=== PATIENT | female | born 1950 | race Caucasian/White ===

== ENCOUNTER 2020-10-12 06:17 | Day surgery (SDC) | payer MEDICARE ==
[2020-10-07 14:22] VITALS: BMI 23.2
[2020-10-12] MEDS ORDERED: ALPRAZolam 0.25 MG TAB ONE (06:45)
[2020-10-12] MEDS ORDERED: SODIUM CHLORIDE 0.9% 1,000 ML IV ONE (06:50)
[2020-10-12] MEDS ORDERED: SODIUM CHLORIDE 0.9% 1,000 ML in EMPTY BAG 1 BAG IV ONE (06:51)
[2020-10-12] MEDS ORDERED: ASPIRIN 325 MG TAB PO PRN (06:51)
[2020-10-12] MEDS ORDERED: ALPRAZolam 0.25 MG TAB PO PRN (06:51)
[2020-10-12 07:22] VITALS: RESP 16; TEMP 98.2
[2020-10-12 07:26] LABS: Basophils # (A) 0.1 k/uL (0-0.2); Basophils % (A) 1 %; Eosinophils # (A) 0.4 k/uL (0-0.7); Eosinophils % (A) 4 %; HGB 14.9 gm/dL (11.4-16.0); Lymphocytes # (A) 1.5 k/uL (1.0-4.8); Lymphocytes % (A) 18 %; MCH 31.7 pg (25.0-35.0); MCHC 33.8 g/dL (31.0-37.0); MCV 93.9 fL (80.0-100.0); Mean Platelet Volume 6.9; Monocytes # (A) 0.6 k/uL (0-1.0); Monocytes % (A) 7 %; Neutrophils # (A) 5.3 k/uL (1.3-7.7); Neutrophils % (A) 67 %; Platelet Count 249 k/uL (150-450); RBC 4.68 m/uL (3.80-5.40); RDW 12.5 % (11.5-15.5); WBC 7.9 k/uL (3.8-10.6)
[2020-10-12 07:28] LABS: African American GFR (CKD) >90 (>60 ml/min/1.73 sqM); Anion Gap 8 mmol/L; Blood Urea Nitrogen 17 mg/dL (7-17); Calcium 9.8 mg/dL (8.4-10.2); Carbon Dioxide 26 mmol/L (22-30); Chloride 101 mmol/L (98-107); Glucose 116 mg/dL (74-99); Non-African American GFR(CKD) >90 (>60 ml/min/1.73 sqM); Potassium 4.6 mmol/L (3.5-5.1); Sodium 135 mmol/L (137-145)
[2020-10-12] MEDS ORDERED: LIDOCAINE 1% INJ 10MG/ML (20 ML MDV) SQ ONE (07:58)
[2020-10-12] MEDS ORDERED: MIDAZOLAM 2 MG/2 ML VIAL IVP ONE (07:58)
[2020-10-12] MEDS ORDERED: fentaNYL (PF) 50 MCG/ML 2 ML AMP IVP ONE (08:02)
[2020-10-12] MEDS ORDERED: HEPARIN SODIUM 1,000 UN/ML (10ML VL) IV ONE (08:06)
[2020-10-12] MEDS ORDERED: VERAPAMIL SYRINGE (5 MG/10 ML) INTRAARTER ONE ×2 (08:26→08:32)
[2020-10-12] MEDS ORDERED: SODIUM CHLORIDE 0.9% 1,000 ML IV SCH (08:45)
--- NOTE | 2020-10-12 10:30 | LTR ---
October 12, [address] Veliz, Ms. Michelle Sinclair was brought today to the hospital to undergo an abdominal aortogram and bilateral lower extremities runoff. Unfortunately, she has no access to perform the procedure and that including occluded bilateral femoral arteries and also occluded right subclavian and critical disease involving the left subclavian. I felt that the safest approach is to perform a CTA of the aorta with runoff. I will keep you posted regarding the results of that which is going to be performed in the next few weeks. Meanwhile, I want to thank you for allowing me to participate in her care. MMODL / IJN: [id number] /
--- NOTE | 2020-10-12 10:54 | AN ---
ANGIOGRAPHY REPORT DATE OF PROCEDURE: October 12, 2020 PERFORMING PHYSICIAN: Leandro Krishna MD. PROCEDURE PERFORMED: 1. Ultrasound guided access of the right brachial artery. 2. Ultrasound-guided access of the left radial artery. INDICATION: This is a 70-year-old female patient with history of peripheral arterial disease and bilateral lower extremities intermittent claudication, who was seen today in the office where she underwent an arterial duplex study and that revealed severe femoral-popliteal disease bilaterally. She was brought today to undergo an angiogram. APPROACH: 1. Right radial artery. 2. Left radial artery. COMPLICATION: None. LEVEL OF SEDATION: Moderate with sedation length of 36 minutes. PROCEDURE DESCRIPTION: After obtaining informed consent, the patient was brought to the cardiac manager labor delivery. The patient has no right radial pulse and because of that, we decided to access the right brachial artery. Under ultrasound guidance, the right brachial artery was accessed. I placed a 4-Cymraes sheath in the right brachial artery. At that point, I gave the patient 3000 units of heparin IV. The J-wire will not cross the right subclavian and advancing the Glidewire was also unsuccessful because the patient has right subclavian occlusion. At that point, I decided to access the left radial artery and she has a good left radial pulse. The left radial artery was accessed under ultrasound guidance and I placed a 4-Cymraes sheath there. I did the wire all the way and that was a 035 stiff Glidewire to the left to demonstrate descending aorta. Unfortunately, the 4-Cymraes catheter will not cross the ostial of the left subclavian and because of that I decided to stop because I don't want to do too many manipulation in the aortic arch and left subclavian and induce stroke in this patient who seems to be seems to have severe peripheral arterial disease and occluded bilateral carotid arteries. The patient is going to be discharged home and I will get a CTA done in the next few weeks. CONCLUSION: 1. An aortogram with runoff was aborted because of no access. 2. The patient will benefit from a CTA of the of the aorta with runoff to be performed in a few weeks. MMODL / IJN: [id number] /
[2020-10-12 15:44] VITALS: BP 102/75; PULSE 69
== END 2020-10-12 13:00 | disposition home or self-care (01) ==
LOC: CATHCVL 06:17
PROVIDERS: ATTEND Internal Medicine Interventional Cardiology
DX: I70.8 Atherosclerosis of other arteries (principal); I73.9 Peripheral vascular disease, unspecified; Z53.8 Procedure and treatment not carried out for other reasons; E05.90 Thyrotoxicosis, unspecified without thyrotoxic crisis or storm; E78.5 Hyperlipidemia, unspecified; I65.23 Occlusion and stenosis of bilateral carotid arteries; F17.210 Nicotine dependence, cigarettes, uncomplicated; Z20.822 Contact with and (suspected) exposure to COVID-19; Z79.02 Long term (current) use of antithrombotics/antiplatelets; Z79.82 Long term (current) use of aspirin; Z79.818 Long term (current) use of other agents affecting estrogen receptors and estrogen levels; Z79.899 Other long term (current) drug therapy; Z88.1 Allergy status to other antibiotic agents; Z88.5 Allergy status to narcotic agent; Z88.0 Allergy status to penicillin
CPT/HCPCS: 80048; 85025; 87635; 36245; C1769 ×6; C1894 ×3; J2250; J2001; J3010; J1644

== ENCOUNTER 2020-12-21 07:30 | Day surgery (SDC) | payer MEDICARE ==
[2020-12-14 11:59] VITALS: BMI 23.3
[~2020-12-21 07:30] MED LIST: ALPRAZolam 0.25 MG TAB PO PRN; ALPRAZolam 0.5 MG TAB PO PRN; ASPIRIN 325 MG TAB PO PRN; HEPARIN SODIUM,PORCINE 10,000 UNIT in SODIUM CHLORIDE 0.9% 1,000 ML IRRIGATION PRN; HEPARIN SODIUM,PORCINE 2,500 UNIT in SODIUM CHLORIDE 0.9% 250 ML IRRIGATION PRN; SODIUM CHLORIDE 0.9% 1,000 ML in EMPTY BAG 1 BAG IV ONE
[2020-12-21] MEDS ORDERED: SODIUM CHLORIDE 0.9% 1,000 ML IV ONE (07:36)
[2020-12-21] MEDS ORDERED: ASPIRIN 81 MG ONE (07:51)
[2020-12-21] MEDS: MIDAZOLAM 2 MG/2 ML VIAL IVP ONE ×4 (10:24→11:20)
[2020-12-21] MEDS ORDERED: LIDOCAINE 1% INJ 10MG/ML (20 ML MDV) SQ ONE ×2 (10:27→12:03)
[2020-12-21] MEDS: fentaNYL (PF) 50 MCG/ML 2 ML AMP IV ONE ×2 (10:36→12:26)
[2020-12-21] MEDS ORDERED: HEPARIN SODIUM 1,000 UN/ML (10ML VL) IVP ONE (11:19)
[2020-12-21] MEDS ORDERED: FLUMAZENIL 0.1 MG/ML 5 ML VIAL IVP ONE ×2 (11:42)
[2020-12-21] MEDS ORDERED: IOPAMIDOL-250 100ML BTL INTRAARTER ONE (13:00)
[2020-12-21] MEDS ORDERED: CLOPIDOGREL 75 MG TAB ONE (13:17)
[2020-12-21] MEDS ORDERED: CLOPIDOGREL 75 MG TAB PO ONE (13:21)
--- NOTE | 2020-12-21 13:34 | IR ---
EXAMINATION TYPE: IR stent intravas non coronary DATE OF EXAM: 12/21/2020 COMPARISON: NONE HISTORY: Fluoroscopy time. Fluoroscopy was provided to the referring clinician. 25.7 minutes of fluoroscopy provided
[2020-12-21] MEDS ORDERED: ONDANSETRON 4 MG/2 ML VIAL ONE (13:46)
[2020-12-21] MEDS ORDERED: HYDROmorphone 0.5 MG/0.5 ML SYRINGE IVP ONE (13:50)
[2020-12-21] MEDS ORDERED: HYDROmorphone 0.5 MG/0.5 ML SYRINGE IVP STA (14:44)
--- NOTE | 2020-12-21 16:50 | LTR ---
DATE OF SERVICE: 12/21/[address] Veliz: Ms. Michelle Sinclair underwent today successful stenting of both iliac arteries with an excellent angiographic result and without any complication. I want to thank you for allowing us to participate in her care and please do not hesitate to call if you have any questions or concerns. Sincerely, MMKHOI / GERMANIAN: [id number] /
--- NOTE | 2020-12-21 18:16 | AN ---
ANGIOGRAPHY REPORT DATE OF SERVICE: December 21, 2020. PERFORMING PHYSICIAN: Leandro Krishna MD. PROCEDURE PERFORMED: 1. Successful kissing stents of the right and left common iliac artery using 7 x 59 mm balloon expandable stent with an excellent angiographic results. 2. Successful stenting of the left external iliac artery using 8 mm x 60 and 7.0 x 18 mm absolute self expandable stent with an excellent angiographic results. 3. Selective bilateral common and external and common femoral arteries angiogram. 4. Ultrasound-guided access of the bilateral common femoral artery. INDICATION: Severe bilateral lower extremities intermittent claudication in this 70-year-old female patient who underwent an angiogram which revealed critical bilateral iliac disease. APPROACH: Right common femoral artery and left common femoral artery. COMPLICATION: None. LEVEL OF SEDATION: Moderate with a sedation length of 2 hours and 23 minutes. PROCEDURE DESCRIPTION: After obtaining informed consent, the patient was brought to the cardiac helper animal laboratory. The right common femoral artery was cannulated using micropuncture technique under ultrasound guidance with difficulty. Subsequently, I placed a 6-Surinamese 23 cm sheath at the right common femoral artery. At that point, anticoagulation was initiated using heparin and continuous using heparin with continuous ACT monitoring throughout the procedure. Subsequently, I did select the left common iliac artery using 5-Surinamese RIM catheter with 035 stiff Glidewire. 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 With difficulties, I was able to get 6 mm balloon up and over from the right groin to the left external iliac artery where I did balloon angioplasty there. Realizing the extreme resistance in advancing devices from the right to the left side, I decided to go ahead and access the left common femoral artery after I ballooned the left external iliac artery. Under ultrasound guidance subsequently I did at that point I accessed the left common femoral artery using micropuncture technique under ultrasound guidance, the micropuncture wire passed easily. Then I placed a 23 cm Brite tip 6-Surinamese sheath in the left common femoral artery. I did at that point, kissing stents of the right and left common iliac arteries using 2 balloon expandable stents and both are Omnilink. Both were 7.0 x 59 mm stent. Both stents were positioned under fluoroscopy guidance and deployed simultaneously in a kissing technique. The following angiogram showed excellent angiographic results. After that, I did the same testing. I did selective angiogram of the left external iliac artery and that showed a tight lesion with possible dissection distal to the stent on the left side. I decided to cover that with a stent. So at that point, I deployed 7.0 x 60 mm self expandable stent and that was absolute which was postdilated using 6 mm balloon. For the lesion at the left distal external iliac artery, I decided to cover that with another self expandable stent, so I deployed 6 x 60 mm another absolute . The second stent was dilated using 6 mm balloon. The following angiogram showed excellent angiographic results. After that, I did exchange my long sheath into short sheath using the 0.035 stiff glidewire by the end selective bilateral common femoral arteries angiogram. The procedure was completed without any complication. POSTPROCEDURE MANAGEMENT: 1. Dual anti-platelet therapy. 2. Aggressive cholesterol control. 3. Risk factor modifications. 4. Follow up with the patient. MMSREEL / GERMANIAN: [id number] /
[2020-12-21] MEDS: HYDROmorphone 0.5 MG/0.5 ML SYRINGE IVP PRN (19:00)
[2020-12-21] MEDS: ZOLPIDEM 5 MG TAB PO PRN (21:19)
[2020-12-21] MEDS: ONDANSETRON 4 MG/2 ML VIAL IVP PRN (21:31)
[2020-12-22] MEDS: HYDROmorphone 0.5 MG/0.5 ML SYRINGE IVP PRN ×2 (04:19→20:02)
[2020-12-22] MEDS: ONDANSETRON 4 MG/2 ML VIAL IVP PRN (04:19)
[2020-12-22] MEDS: ASPIRIN 81 MG PO SCH (09:28)
[2020-12-22] MEDS: CLOPIDOGREL 75 MG TAB PO SCH (09:28)
[2020-12-22] MEDS: FAMOTIDINE 20 MG TAB PO SCH ×2 (09:29→22:41)
[2020-12-22] MEDS: propylthiouraciL 50 MG TAB PO SCH ×2 (09:30→22:47)
[2020-12-22] MEDS: METOPROLOL TARTRATE 50 MG TAB PO SCH ×2 (09:38→22:42)
--- NOTE | 2020-12-22 10:47 | US ---
EXAMINATION TYPE: US lower ext pseudo artery RT DATE OF EXAM: 12/22/2020 COMPARISON: NONE CLINICAL HISTORY: 70-year-old female groin pain after LHC yesterday, assess for pseudoaneurysm. EXAM PERFORMED: Grayscale and color Doppler duplex imaging performed of the groin, post cardiac kacie ter to assess for pseudoaneurysm. Operations Representative notes: Limited due to edema. SIDE PERFORMED: RT FINDINGS: Color and Waveform Doppler performed to assess for the presence of pseudoaneurysm; Is there ultrasound evidence of a pseudoaneurysm: Possible narrow neck pseudoaneurysm branching from right femoral artery. Yin urias appearance and high velocity arterial waveform (664 cm/s) seen within area imaged. Is there evidence of AV shunting: There appears to be mixed arterial and venous waveform when Doppler is applied to the CFV was done. Is there a fluid collection present: Ovoid heterogeneous area seen in left groin: 1.1 x 2.5 x 0.3 cm, possible small hematoma versus reactive lymph node. The latter is favored. IMPRESSION: 1. The appearance of a narrow neck pseudoaneurysm extending from the right common femoral artery. 2. In addition, there is mixed arterial and venous flow detected in the common femoral and an AV fist karol is not excluded.
[2020-12-22] MEDS ORDERED: METOPROLOL TARTRATE 25 MG TAB PO SCH (12:00)
--- NOTE | 2020-12-22 14:29 | DS ---
DISCHARGE SUMMARY DATE OF ADMISSION: 12/21/2020 DATE OF DISCHARGE: 12/22/2020 BRIEF HISTORY: This is a 70-year-old female patient who underwent successful stenting of the right and left iliac arteries with a very complex and long procedure with good angiographic results by the end. The patient is going to be discharged home on dual anti-platelet therapy and I will follow up with the patient next week in the office. MMKHOI / GERMANIAN: [id number] /
[2020-12-22] MEDS ORDERED: ACETAMINOPHEN TAB 500 MG TAB PO PRN (18:59)
[2020-12-22] MEDS ORDERED: SODIUM CHLORIDE 0.9% 1,000 ML IV SCH (19:00)
[2020-12-22] MEDS ORDERED: NICOTINE 14MG/24HR PATCH TRANSDERM STA (19:01)
[2020-12-22] MEDS ORDERED: ATORVASTATIN 20 MG TAB PO SCH (21:00)
[2020-12-22] MEDS: ZOLPIDEM 5 MG TAB PO PRN (22:42)
[2020-12-23] MEDS: HYDROmorphone 0.5 MG/0.5 ML SYRINGE IVP PRN ×2 (00:32→04:38)
[2020-12-23 04:28] VITALS: RESP 16
[2020-12-23] MEDS: FAMOTIDINE 20 MG TAB PO SCH (06:39)
[2020-12-23] MEDS: CLOPIDOGREL 75 MG TAB PO SCH (08:16)
[2020-12-23] MEDS: METOPROLOL TARTRATE 50 MG TAB PO SCH (08:16)
[2020-12-23] MEDS: ASPIRIN 81 MG PO SCH (08:16)
[2020-12-23 08:21] VITALS: BP 110/56; PULSE 91; TEMP 98.1
[2020-12-23 08:22] LABS: HCT 30.3 % (34.0-46.0); HGB 10.4 gm/dL (11.4-16.0); MCHC 34.4 g/dL (31.0-37.0); MCV 98.6 fL (80.0-100.0); Mean Platelet Volume 7.1; Platelet Count 174 k/uL (150-450); RBC 3.07 m/uL (3.80-5.40); RDW 12.8 % (11.5-15.5); WBC 8.6 k/uL (3.8-10.6)
--- NOTE | 2020-12-23 10:27 | DS ---
DISCHARGE SUMMARY This is a pleasant 70-year-old female patient who was admitted to the hospital yesterday on the December 21 and she underwent successful stenting of bilateral iliac arteries from groin approach. When she was seen yesterday, she did have right groin tenderness. For that reason I ordered ultrasound. The ultrasound revealed a small neck pseudoaneurysm. Interventional Radiologist was consulted but there was no note from them regarding the need for compression or thrombin injection. We were going to contact them. If the plan to be conservative, the patient can be discharged home on dual anti-platelet therapy to be seen in the office in a week. Please note that right groin is bruised, but there is no tenderness nor discrete hematoma noted. MMODL / IJN: [id number] /
== END 2020-12-23 09:32 | disposition home or self-care (01) ==
LOC: CATHCVL 07:30 → 3SCARD 12:49 → CATHCVL 12-23 09:32
PROVIDERS: ATTEND Internal Medicine Interventional Cardiology
DX: I70.213 Atherosclerosis of native arteries of extremities with intermittent claudication, bilateral legs (principal); I10 Essential (primary) hypertension; E78.5 Hyperlipidemia, unspecified; Z86.73 Personal history of transient ischemic attack (TIA), and cerebral infarction without residual deficits; F17.210 Nicotine dependence, cigarettes, uncomplicated; I72.0 Aneurysm of carotid artery
CPT/HCPCS: 37221; 37223; 85027; 93975; 93926; C1894 ×4; C1769 ×6; C1725; C1876 ×2; S4990; J2250; J2405 ×2; J2001; J3010; J1644; J1170 ×3; Q9966

== ENCOUNTER → 2021-01-04 | Outpatient (CLI) | payer MEDICARE ==
--- NOTE | 2021-01-04 16:31 | US ---
EXAMINATION TYPE: US lower ext pseudo artery LT DATE OF EXAM: 01/04/2021 COMPARISON: NONE CLINICAL HISTORY: 70-year-old female I72.4 Aneurysm of artery of lower extremity. Hx of right PSA. Pr ocedure within the left and right groin 12/22/2020 EXAM PERFORMED: Grayscale and color Doppler duplex imaging performed of the groin, post cardiac kacie ter to assess for pseudoaneurysm. SIDE PERFORMED: Left Color and Waveform Doppler performed to assess for the presence of pseudoaneurysm; Is there ultrasound evidence of a pseudoaneurysm: Yes. This measures 4.0 x 2.7 cm. Classic yin urias sign on color Doppler. The neck is very narrow measuring 2 mm wide and is approximately 4 mm long. Is there evidence of AV shunting: Possible communication of the pseudoaneurysm with one of the adjace nt greater saphenous veins. Is there a fluid collection present: No IMPRESSION: 1. Exam positive for a narrow neck 4.0 cm pseudoaneurysm in the left groin. 2. There may be an additional possible communication of the pseudoaneurysm with an adjacent greater s aphenous vein. Findings called to the clinician's office by the wide area network systems administrator.
== END | disposition home or self-care (01) ==
LOC: RADUSWWP 14:49
PROVIDERS: ATTEND Internal Medicine Interventional Cardiology
DX: I72.4 Aneurysm of artery of lower extremity (principal)
CPT/HCPCS: 93975

== ENCOUNTER 2021-01-06 14:56 | Observation (INO) | payer MEDICARE ==
[2021-01-06 16:26] LABS: Basophils # (A) 0.1 k/uL (0-0.2); Basophils % (A) 1 %; Eosinophils # (A) 0.3 k/uL (0-0.7); Eosinophils % (A) 3 %; HCT 38.2 % (34.0-46.0); HGB 12.5 gm/dL (11.4-16.0); Lymphocytes # (A) 1.4 k/uL (1.0-4.8); Lymphocytes % (A) 16 %; MCH 32.2 pg (25.0-35.0); MCHC 32.6 g/dL (31.0-37.0); MCV 98.8 fL (80.0-100.0); Mean Platelet Volume 7.1; Monocytes # (A) 0.6 k/uL (0-1.0); Monocytes % (A) 7 %; Neutrophils # (A) 6.2 k/uL (1.3-7.7); Neutrophils % (A) 71 %; RBC 3.87 m/uL (3.80-5.40); RDW 13.6 % (11.5-15.5); WBC 8.8 k/uL (3.8-10.6)
[2021-01-06 16:34] LABS: INR 0.9 (<1.2); Prothrombin Time 10.2 sec (9.0-12.0)
[2021-01-06 16:35] LABS: Platelet Count 379 k/uL (150-450)
[2021-01-06 16:39] LABS: ALT 15 U/L (4-34); AST 20 U/L (14-36); African American GFR (CKD) >90 (>60 ml/min/1.73 sqM); Albumin 4.2 g/dL (3.5-5.0); Alkaline Phosphatase 75 U/L (38-126); Anion Gap 10 mmol/L; Blood Urea Nitrogen 15 mg/dL (7-17); Calcium 9.9 mg/dL (8.4-10.2); Carbon Dioxide 24 mmol/L (22-30); Chloride 99 mmol/L (98-107); Glucose 99 mg/dL (74-99); Magnesium 2.1 mg/dL (1.6-2.3); Non-African American GFR(CKD) >90 (>60 ml/min/1.73 sqM); Potassium 4.6 mmol/L (3.5-5.1); Sodium 133 mmol/L (137-145); Total Bilirubin 0.5 mg/dL (0.2-1.3); Total Protein 7.3 g/dL (6.3-8.2)
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
[2021-01-06] MEDS ORDERED: NICOTINE 14MG/24HR PATCH TRANSDERM STA (17:18)
--- NOTE | 2021-01-06 18:13 | CT ---
EXAMINATION TYPE: CT angio chest DATE OF EXAM: 01/06/2021 5:53 PM COMPARISON: None HISTORY: low BP CT DLP: 406 mGycm Automated exposure control for dose reduction was used. CONTRAST: CTA scan of the thorax is performed with IV Contrast, patient injected with 100 mL of Isovue 370, pul monary embolism protocol. FINDINGS: LUNGS: There is a 2 x 3.7 x 2.7 cm spiculated mass in the left upper lobe. Emphysematous changes. 2 mm nodule seen in the right upper lobe series 4 image 47/406. MEDIASTINUM: There is satisfactory enhancement of the pulmonary artery and its branches, there is no CT evidence for pulmonary embolism. There are some prominent but nonenlarged AP window lymph nodes. T here are no greater than 1 cm hilar or mediastinal lymph nodes. No pericardial effusion is seen. Sm all hiatal hernia. Severe coronary artery calcifications.521 OTHER: Atherosclerotic changes of the aorta with a 5 mm focal outpouching at the level of T10-T11. 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 IMPRESSION: 1. No pulmonary embolus. 2. Emphysematous changes with a 2 x 4 x 3 cm spiculated mass in the left upper lobe recommend biopsy or PET/CT. 3. Atherosclerotic changes of the aorta with a 5 mm focal outpouching at the level of T10-T11.
[2021-01-06] MEDS ORDERED: NALOXONE 0.4 MG/ML 1 ML VIAL IV PRN (19:20)
[2021-01-06] MEDS ORDERED: LORazepam 1 MG TAB PO STA (19:44)
[2021-01-06] MEDS ORDERED: HYDROcodone/APAP 5-325MG 1 EACH TAB PO STA (22:19)
[2021-01-06] MEDS ORDERED: FAMOTIDINE 20 MG TAB PO STA (22:23)
[2021-01-06] MEDS ORDERED: ALPRAZolam 0.25 MG TAB PO PRN (23:06)
[2021-01-06] MEDS: FAMOTIDINE 20 MG TAB PO SCH (23:39)
[2021-01-06] MEDS: MELATONIN 5 MG TABLET PO SCH (23:42)
[2021-01-06] MEDS: propylthiouraciL 50 MG TAB PO SCH (23:42)
[2021-01-06] MEDS: ATORVASTATIN 20 MG TAB PO SCH (23:42)
[2021-01-07] MEDS ORDERED: THROMBIN (BOVINE) 5,000 UNIT VIAL MISCELLANE ONE (08:30)
[2021-01-07] MEDS ORDERED: LORazepam 1 MG TAB PO STA (08:43)
[2021-01-07] MEDS: propylthiouraciL 50 MG TAB PO SCH ×2 (08:47→20:35)
[2021-01-07] MEDS: METOPROLOL TARTRATE 25 MG TAB PO SCH ×2 (08:47→17:41)
[2021-01-07] MEDS: CLOPIDOGREL 75 MG TAB PO SCH (08:47)
[2021-01-07] MEDS: ASPIRIN 81 MG PO SCH (08:47)
[2021-01-07] MEDS: FAMOTIDINE 20 MG TAB PO SCH ×2 (08:47→20:35)
--- NOTE | 2021-01-07 09:15 | P.PCN ---
Date of Procedure: 01/07/21 Preoperative Diagnosis: left groin pseudoaneurysm Postoperative Diagnosis: thrombosed left groin pseudoaneurysm Procedure(s) Performed: thrombin injection Anesthesia: local Estimated Blood Loss (ml): 0 Pathology: none sent Condition: stable Disposition: no change Operative Findings: 100u injected under u/s guide, thrombosed immediately, NVI distally after procedure
[2021-01-07] MEDS: SODIUM CHLORIDE 0.9% 1,000 ML IV SCH ×2 (11:00→20:35)
--- NOTE | 2021-01-07 11:57 | P.HPIM ---
History of Present Illness H&P Date: 01/07/21 Chief Complaint: Left groin pain, pseudoaneurysm left groin status post stent This is a 70-year-old female patient who presented to the ER for pseudoaneurysm of the left groin. Patient normally follows with Dr. Goodwin reports that she had stents placed in her bilateral lower infection remains on December 21. Patient reports that she was having ongoing left groin pain and ultrasound was performed 2 days ago and it was found the patient had pseudoaneurysm and was recommended per Dr. Goodwin to present to ER. Additional medical history includes COPD, CVA, GERD, hyperlipidemia, hypertension, osteoporosis, thyroid disorder, stroke and colorectal cancer in 2006. Patient underwent thrombin injection per IR. She is currently resting comfortably in bed. Patient's blood pressure low in the 70s. Will initiate IV fluid and advised nursing staff to recheck blood pressure. Repeat ultrasound of the lower extremity ordered for a.m. At this time patient denies chest pain or shortness of breath. Patient denies nausea vomiting or diarrhea. Patient denies any urinary burning or frequency Review of Systems Please refer to HPI otherwise unremarkable Past Medical History Past Medical History: Cancer, COPD, CVA/TIA, GERD/Reflux, Hyperlipidemia, Hypertension, Osteoarthritis (OA), Thyroid Disorder Additional Past Medical History / Comment(s): HX STROKE IN 2006, Left SIDE WAS AFFECTED, ABLE TO USE ARM AND LEG BUT USES CANE/WALKER FOR BALANCE, HX COLORECTAL CANCER IN 2007, "BILATERAL CAROTIDS 100% BLOCKED." HYPERTHYROID (graves), "JUST HAD RADIATION THERAPY, NO DYES FOR 6 WEEKS". History of Any Multi-Drug Resistant Organisms: None Reported Past Surgical History: Adenoidectomy, Appendectomy, Bowel Resection, Hysterectomy, Tonsillectomy, Tubal Ligation Additional Past Surgical History / Comment(s): BOWEL SURGERY FOR Colorectal CANCER (NO CHEMO OR RADIATION), BILATERAL CATARACTS REMOVED. Bilateral groin stenting by Dr. Krishna 12/2020. Past Anesthesia/Blood Transfusion Reactions: No Reported Reaction Additional Past Anesthesia/Blood Transfusion Reaction / Comment(s): CLAUSTERPHOBIA. Past Psychological History: Anxiety Smoking Status: Current every day smoker Past Alcohol Use History: Daily Additional Past Alcohol Use History / Comment(s): STARTED SMOKING AT AGE 14, SMOKES 1 PPD. Drinks 3 beers per day. Past Drug Use History: None Reported - Past Family History Father Family Medical History: Diabetes Mellitus, Hypertension, Myocardial Infarction ([place]) Additional Family Medical History / Comment(s): SMOKER. Mother Family Medical History: Dementia Additional Family Medical History / Comment(s): BIPOLAR, DEPRESSION. Medications and Allergies Home Medications Medication Instructions Recorded Confirmed Type Temazepam [Restoril] 30 mg PO HS 06/17/14 01/06/21 History Atorvastatin [Lipitor] 20 mg PO HS tab 06/18/14 01/06/21 Rx propylthiouraciL [Propylthiouracil] 50 mg PO BID tablet 06/18/14 01/06/21 Rx Clopidogrel [Plavix] 75 mg PO DAILY 08/29/14 01/06/21 History Aspirin [Adult Low Dose Aspirin EC] 81 mg PO DAILY 10/07/20 01/06/21 History Famotidine 20 mg PO BID 10/07/20 01/06/21 History Metoprolol Tartrate [Lopressor] 25 mg PO DAILY@1200 10/07/20 01/06/21 History Metoprolol Tartrate [Lopressor] 75 mg PO BID@0800,1800 10/07/20 01/06/21 History ALPRAZolam [Xanax] 0.25 mg PO BID PRN 01/06/21 01/06/21 History Acetaminophen [Tylenol Extra 1,000 mg PO BID 01/06/21 01/06/21 History Strength] Allergies Allergy/AdvReac Type Severity Reaction Status Date / Time azithromycin Allergy Severe Verified 01/06/21 17:14 Dizziness codeine Allergy FLUSHING Verified 01/06/21 17:14 Penicillins Allergy dizziness Verified 01/06/21 17:14 Physical Exam Vitals: Vital Signs Temp Pulse Pulse Resp BP BP Pulse Ox 01/07/21 07:00 97.7 F 82 18 152/73 99 01/07/21 02:00 79 20 01/07/21 01:12 97.6 F 79 20 125/70 97 01/06/21 23:30 74 18 01/06/21 23:24 97.6 F 74 18 144/71 96 01/06/21 21:55 79 18 141/62 96 01/06/21 18:51 78 18 137/76 98 01/06/21 16:31 85/48 01/06/21 16:26 161/74 01/06/21 15:23 76 18 153/80 98 09/24/21 15:06 98.1 F 57 L 20 75/53 88 L Intake and Output 01/06/21 01/07/21 01/07/21 22:59 06:59 14:59 Other: Voiding Method Toilet Toilet # Voids 1 Weight 65.771 kg 65.771 kg Head normocephalic Neck supple Lungs clear to auscultation bilaterally no wheezing or crackles Heart regular rate and rhythm S1-S2, no rub or gallop Abdomen is soft nontender nondistended positive bowel sounds no hepatosplenomegaly Extremities no edema. Left groin soft. Site clean dry and intact Neuro alert and orientated to 3 Results CBC & Chem 7: 01/06/21 16:08 01/06/21 16:08 Labs: Abnormal Lab Results - Last 24 Hours (Table) 01/06/21 Range/Units 16:08 Sodium 133 L (137-145) mmol/L Thrombosis Risk Factor Assmnt - Choose All That Apply Each Factor Represents 1 point: Abnormal pulmonary function (COPD) Each Risk Factor Represents 2 Points: Age 61-74 years Thrombosis Risk Factor Assessment Total Risk Factor Score: 3 Thrombosis Risk Factor Assessment Level: Moderate Risk Assessment and Plan Assessment: 1. Pseudoaneurysm to left groin status post thrombin injection per IR repeat ultrasound ordered in a.m. 2. History CVA 3. History of COPD 4. History of essential hypertension 5. History of hypothyroidism 6. Chronic nicotine dependence. Patient educated greater than 3 minutes on smoking cessation. Nicotine patch ordered 7. Hyperlipidemia. Patient maintained on statin 8. Hypotension. Fluids initiated. We'll continue to monitor closely per nursing staff Time with Patient: Greater than 30 (Greater than 60% of the total time spent in counseling and coordination of care)
[2021-01-07] MEDS ORDERED: METOPROLOL TARTRATE 25 MG TAB PO SCH (12:00)
--- NOTE | 2021-01-07 15:19 | P.CNPUL ---
History of Present Illness Consult date: 01/07/21 Requesting physician: Elizabeth Veliz Reason for consult: abnormal CXR/CT Chief complaint: Left groin pain History of present illness: This a very pleasant 70-year-old female patient with a known history of hypertension, hyperlipidemia, recent stenting of bilateral iliac arteries with bilateral groin approach. She was having ongoing issues with groin pain. She was found to have a pseudoaneurysm of the left groin. Possible communication of the pseudoaneurysm with an adjacent greater saphenous vein. She was referred here to the emergency room yesterday for the same. She had undergone a thrombin injection today by interventional radiology in the thrombosed left groin pseudoaneurysm improved. While in the emergency room yesterday she had undergone a CT angiogram of the chest for hypotension. There was no pulmonary embolism however she was found to have emphysematous changes and a 2 x 4 x 3 cm spiculated mass in the left upper lobe. She is noted to have a 50 year chronic and ongoing tobacco dependence. White count 8.8. Hemoglobin 12.5. Sodium 133. Potassium 4.6. Creatinine 0.61. Strauss virus not detected. She is seen today in consultation on the regular medical floor. She is awake and alert in no acute distress. Maintaining O2 saturations in the 90s on room air. She remains somewhat hypotensive. She did receive Lopressor 75 mg this a.m. She remains on Plavix and aspirin. Review of Systems REVIEW OF SYSTEMS: CONSTITUTIONAL: Denies any recent significant weight loss or weight gain. EYES: Denies change in vision. EARS, NOSE, MOUTH, THROAT: Denies headaches, denies sore throat. CARDIOVASCULAR: Denies chest pain, palpitations or syncopal episodes. RESPIRATORY: Denies shortness of breath, cough, congestion or hemoptysis. GASTROINTESTINAL: Denies change in appetite, denies abdominal pain GENITOURINARY: Denies hematuria, denies infections. MUSKULOSKELETAL: Left groin pain and swelling. INTEGUMENTARY: Denies rash, denies eczema. NEUROLOGICAL: Denies recent memory loss, no recent seizure activity. PSYCHIATRIC: Denies anxiety, denies depression. HEMATOLOGIC/LYMPHATIC: Denies anemia, denies enlarged lymph nodes. Past Medical History Past Medical History: Cancer, COPD, CVA/TIA, GERD/Reflux, Hyperlipidemia, Hypertension, Osteoarthritis (OA), Thyroid Disorder Additional Past Medical History / Comment(s): HX STROKE IN 2006, Left SIDE WAS AFFECTED, ABLE TO USE ARM AND LEG BUT USES CANE/WALKER FOR BALANCE, HX COLORECTAL CANCER IN 2007, "BILATERAL CAROTIDS 100% BLOCKED." HYPERTHYROID (graves), "JUST HAD RADIATION THERAPY, NO DYES FOR 6 WEEKS". History of Any Multi-Drug Resistant Organisms: None Reported Past Surgical History: Adenoidectomy, Appendectomy, Bowel Resection, Hysterectomy, Tonsillectomy, Tubal Ligation Additional Past Surgical History / Comment(s): BOWEL SURGERY FOR Colorectal CANCER (NO CHEMO OR RADIATION), BILATERAL CATARACTS REMOVED. Bilateral groin stenting by Dr. Krishna 12/2020. Past Anesthesia/Blood Transfusion Reactions: No Reported Reaction Additional Past Anesthesia/Blood Transfusion Reaction / Comment(s): CLA USTERPHOBIA. Past Psychological History: Anxiety Smoking Status: Current every day smoker Past Alcohol Use History: Daily Additional Past Alcohol Use History / Comment(s): STARTED SMOKING AT AGE 14, S MOKES 1 PPD. Drinks 3 beers per day. Past Drug Use History: None Reported - Past Family History Father Family Medical History: Diabetes Mellitus, Hypertension, Myocardial Infarction ([place]) Additional Family Medical History / Comment(s): SMOKER. Mother Family Medical History: Dementia Additional Family Medical History / Comment(s): BIPOLAR, DEPRESSION. Medications and Allergies Home Medications Medication Instructions Recorded Confirmed Type Temazepam [Restoril] 30 mg PO HS 06/17/14 01/06/21 History Atorvastatin [Lipitor] 20 mg PO HS tab 06/18/14 01/06/21 Rx propylthiouraciL [Propylthiouracil] 50 mg PO BID tablet 06/18/14 01/06/21 Rx Clopidogrel [Plavix] 75 mg PO DAILY 08/29/14 01/06/21 History Aspirin [Adult Low Dose Aspirin EC] 81 mg PO DAILY 10/07/20 01/06/21 History Famotidine 20 mg PO BID 10/07/20 01/06/21 History Metoprolol Tartrate [Lopressor] 25 mg PO DAILY@1200 10/07/20 01/06/21 History Metoprolol Tartrate [Lopressor] 75 mg PO BID@0800,1800 10/07/20 01/06/21 History ALPRAZolam [Xanax] 0.25 mg PO BID PRN 01/06/21 01/06/21 History Acetaminophen [Tylenol Extra 1,000 mg PO BID 01/06/21 01/06/21 History Strength] Allergies Allergy/AdvReac Type Severity Reaction Status Date / Time azithromycin Allergy Severe Verified 01/06/21 17:14 Dizziness codeine Allergy FLUSHING Verified 01/06/21 17:14 Penicillins Allergy dizziness Verified 01/06/21 17:14 Physical Exam Vitals: Vital Signs Temp Pulse Pulse Resp BP BP BP 01/07/21 11:58 73 115/69 01/07/21 11:57 60 79/52 01/07/21 11:42 80 100/63 01/07/21 10:27 82 64/44 01/07/21 10:12 77 76/49 01/07/21 09:57 67 75/48 01/07/21 09:43 77 83/57 01/07/21 09:28 84 73/48 01/07/21 07:00 97.7 F 82 18 152/73 01/07/21 02:00 79 20 01/07/21 01:12 97.6 F 79 20 125/70 01/06/21 23:30 74 18 01/06/21 23:24 97.6 F 74 18 144/71 01/06/21 21:55 79 18 141/62 01/06/21 18:51 78 18 137/76 01/06/21 16:31 85/48 01/06/21 16:26 161/74 01/06/21 15:23 76 18 153/80 01/06/21 15:06 98.1 F 57 L 20 75/53 Pulse Ox 01/07/21 11:58 01/07/21 11:57 01/07/21 11:42 01/07/21 10:27 01/07/21 10:12 01/07/21 09:57 01/07/21 09:43 01/07/21 09:28 01/07/21 07:00 99 01/07/21 02:00 01/07/21 01:12 97 01/06/21 23:30 01/06/21 23:24 96 01/06/21 21:55 96 01/06/21 18:51 98 01/06/21 16:31 01/06/21 16:26 01/06/21 15:23 98 01/06/21 15:06 88 L Intake and Output 01/06/21 01/07/21 01/07/21 22:59 06:59 14:59 Intake Total 118 Balance 118 Intake: Oral 118 Other: Voiding Method Toilet Toilet # Voids 1 Weight 65.771 kg 65.771 kg GENERAL EXAM: Alert, very pleasant 70-year-old female patient, on room air, comfortable in no apparent distress. HEAD: Normocephalic. EYES: Normal reaction of pupils, equal size. NOSE: Clear with pink turbinates. THROAT: No erythema or exudates. NECK: No masses, no JVD. CHEST: No chest wall deformity. LUNGS: Equal air entry with no crackles, wheeze, rhonchi or dullness. CVS: S1 and S2 normal with no audible murmur, regular rhythm. ABDOMEN: No hepatosplenomegaly, normal bowel sounds, no guarding or rigidity. SPINE: No scoliosis or deformity SKIN: No rashes CENTRAL NERVOUS SYSTEM: No focal deficits, tone is normal in all 4 extremities. EXTREMITIES: Ecchymosis noted in the suprapubic area and left groin area. Band- Aid in place. There is no peripheral edema. No clubbing, no cyanosis. Peripheral pulses are intact. Results - Laboratory Findings CBC and BMP: 01/06/21 16:08 01/06/21 16:08 PT/INR, D-dimer PT 10.2 sec (9.0-12.0) 01/06/21 16:08 INR 0.9 (<1.2) 01/06/21 16:08 Abnormal lab findings: Abnormal Labs 01/06/21 16:08 Sodium 133 L - Diagnostic Findings CT scan - chest: image reviewed Assessment and Plan Assessment: 1 Acute left groin pseudoaneurysm status post thrombin injection 2 Hypotension 3 Left upper lobe lung mass measuring 2 x 4 x 3 cm 4 Chronic and ongoing tobacco dependence greater than 50 years [address], probable significant COPD 6 Previous CVA/TIA 7 History of hypertension 8 Hyperlipidemia 9 hyperthyroidism with previous radiation therapy 10 History of colorectal cancer in 2006 11 History of carotid stenosis Plan: The patient was seen and evaluated by Dr. Quiroga CAT scan reviewed Patient informed of possible lung cancer Will need outpatient follow-up including PET scan and eventual biopsy We'll need to determine when she could be off her Plavix safely The patient is aware and will follow-up post discharge I, the cosigning physician, performed a history & physical examination of the patient. Lungs sounds are clear. Maintaining good O2 saturations in the 90s on room air. I discussed the assessment and plan of care with my nurse practitioner, Meena Helms. I attest to the above consultation as dictated by her. Time with Patient: Greater than 30
[2021-01-07] MEDS: NICOTINE 14MG/24HR PATCH TRANSDERM SCH (17:41)
[2021-01-07] MEDS: MELATONIN 5 MG TABLET PO SCH (20:35)
[2021-01-07] MEDS: ATORVASTATIN 20 MG TAB PO SCH (20:35)
[2021-01-07] MEDS ORDERED: ACETAMINOPHEN TAB 325 MG TAB PO PRN (21:21)
--- NOTE | 2021-01-08 07:59 | US ---
EXAMINATION TYPE: US lower ext pseudo artery LT DATE OF EXAM: 01/08/2021 COMPARISON: US's CLINICAL HISTORY: follow up thrombin injection EXAM PERFORMED: Grayscale and color Doppler duplex imaging performed of the groin, post cardiac kacie ter to assess for pseudoaneurysm. SIDE PERFORMED: left Color and Waveform Doppler performed to assess for the presence of pseudoaneurysm; Status post thrombin injection for pseudoaneurysm in the left groin, there is a 4.1 x 1.9 x 2.8 cm co mplex fluid collection with no internal blood flow. Blood flow was seen within this collection on the prior study prior to thrombin injection therefore this represents a thrombosed pseudoaneurysm IMPRESSION: Successfully thrombosed pseudoaneurysm in the left groin as described above.
[2021-01-08 08:23] VITALS: RESP 17; TEMP 96.8
[2021-01-08] MEDS: ASPIRIN 81 MG PO SCH (08:45)
[2021-01-08] MEDS: propylthiouraciL 50 MG TAB PO SCH (08:45)
[2021-01-08] MEDS: METOPROLOL TARTRATE 25 MG TAB PO SCH (08:45)
[2021-01-08] MEDS: FAMOTIDINE 20 MG TAB PO SCH (08:45)
[2021-01-08] MEDS: CLOPIDOGREL 75 MG TAB PO SCH (08:45)
[2021-01-08 08:46] VITALS: BP 138/71; PULSE 77
[2021-01-08] MEDS: SODIUM CHLORIDE 0.9% 1,000 ML IV SCH (08:46)
[2021-01-08] MEDS: NICOTINE 14MG/24HR PATCH TRANSDERM SCH (08:46)
[2021-01-08 09:02] LABS: Basophils # (A) 0.11 X 10*3/uL (0.00-0.10); Basophils % (A) 1.5 %; Eosinophils # (A) 0.25 X 10*3/uL (0.04-0.35); Eosinophils % (A) 3.4 %; HCT 33.6 % (37.2-46.3); HGB 10.5 g/dL (12.0-15.0); Lymphocytes # (A) 1.22 X 10*3/uL (0.90-5.00); Lymphocytes % (A) 16.7 %; MCH 31.5 pg (27.0-32.0); MCHC 31.3 g/dL (32.0-37.0); MCV 100.9 fL (80.0-97.0); Mean Platelet Volume 9.1 fL (9.5-12.2); Monocytes # (A) 0.71 X 10*3/uL (0.20-1.00); Monocytes % (A) 9.7 %; Neutrophils # (A) 4.98 X 10*3/uL (1.80-7.70); Neutrophils % (A) 68.3 %; Platelet Count 279 X 10*3/uL (140-440); RBC 3.33 X 10*6/uL (4.10-5.20)
[2021-01-08 09:15] LABS: African American GFR (CKD) 112.1 (60.0-200.0); Albumin 3.7 g/dL (3.80-4.90); Albumin/Globulin Ratio 1.95 (1.60-3.17); Anion Gap 3.4 mmol/L (4.00-12.00); Calcium 8.9 mg/dL (8.7-10.3); Carbon Dioxide 26.6 mmol/L (21.6-31.8); Globulin 1.9 g/dL (1.6-3.3); Non-African American GFR(CKD) 96.7 (60.0-200.0); Potassium 4.3 mmol/L (3.5-5.5); Total Bilirubin 0.3 mg/dL (0.3-1.2); Total Protein 5.6 g/dL (6.2-8.2)
--- NOTE | 2021-01-08 12:58 | P.DS ---
Providers Date of admission: 01/06/21 19:20 Expected date of discharge: 01/08/21 Attending physician: Elizabeth Veliz Consults: 01/06/21 19:22 Consult Physician Urgent Consulting Provider: Javier Kunz Consult Reason/Comments: pseudoanerysm left groin s/p stent Do you want consulting provider notified?: Yes 01/07/21 12:05 Consult Physician Routine Consulting Provider: Bhaskar Quiroga Consult Reason/Comments: Spiculated mass seen on computed tomography scan Do you want consulting provider notified?: Yes Consult Physician Routine Consulting Provider: Leandro Krishna Consult Reason/Comments: Established patient Do you want consulting provider notified?: Yes Primary care physician: Elizabeth Keren [facility] Course: Diagnosis on discharge: 1. Pseudoaneurysm to left groin status post thrombin injection per IR repeat ultrasound ordered in a.m. 2. History CVA 3. History of COPD 4. History of essential hypertension 5. History of hypothyroidism 6. Chronic nicotine dependence. Patient educated greater than 3 minutes on smoking cessation. Nicotine patch ordered 7. Hyperlipidemia. Patient maintained on statin 8. Hypotension. Fluids initiated. We'll continue to monitor closely per nursing staff 9. Computed tomography scan of the chest reveals a spiculated mass in the left upper lobe measuring 243 cm pulmonary consultation was requested she was seen by Dr. Quiroga who cleared her for discharge at this time, and will follow as outpatient for further evaluation and treatment Hospital course: Michelle Sinclair, is a 70-year-old female patient who presented to the ER for pseudoaneurysm of the left groin. Patient normally follows with Dr. Goodwin reports that she had stents placed in her bilateral lower infection remains on December 21. Patient reports that she was having ongoing left groin pain and ultrasound was performed 2 days ago and it was found the patient had pseudoaneurysm and was recommended per Dr. Goodwin to present to ER. Additional medical history includes COPD, CVA, GERD, hyperlipidemia, hypertension, osteoporosis, thyroid disorder, stroke and colorectal cancer in 2006. Patient underwent thrombin injection per IR. She is currently resting comfortably in bed. Patient's blood pressure low in the 70s. Will initiate IV fluid and advised nursing staff to recheck blood pressure. Repeat ultrasound of the lower extremity ordered for a.m. At this time patient denies chest pain or shortness of breath. Patient denies nausea vomiting or diarrhea. Patient denies any urinary burning or frequency On 01/08/2021 Patient was seen and examined on the medical floor, he is alert and oriented x 3 in no distress, he denies any complaints there is no fever or chills no headache or dizziness no chest pain no shortness of breath no palpitation no cough no nausea or vomiting no abdominal pain no diarrhea no blood in the stools no burning with urination no frequency or urgency and no hematuria, there is no weakness or numbness in any of the extremities no change in vision speech or gait. Patient was cleared by pulmonary and vascular surgery for discharge, she was discharged home she will be followed in our office within 1 week she was counseled in length in regard to smoking cessation she was given a prescription for nicotine patches at the time of discharge. Patient Condition at Discharge: Stable Plan - Discharge Summary New Discharge Prescriptions: New Nicotine 14Mg/24Hr Patch [Habitrol] 1 patch TRANSDERM DAILY patch Continue Temazepam [Restoril] 30 mg PO HS Atorvastatin [Lipitor] 20 mg PO HS tab propylthiouraciL [Propylthiouracil] 50 mg PO BID tablet Clopidogrel [Plavix] 75 mg PO DAILY Metoprolol Tartrate [Lopressor] 75 mg PO BID@0800,1800 Famotidine 20 mg PO BID Aspirin [Adult Low Dose Aspirin EC] 81 mg PO DAILY ALPRAZolam [Xanax] 0.25 mg PO BID PRN PRN Reason: Anxiety Acetaminophen [Tylenol Extra Strength] 1,000 mg PO BID Metoprolol Tartrate [Lopressor] 25 mg PO DAILY@1200 Discharge Medication List Temazepam [Restoril] 30 mg PO HS 06/17/14 [History] Atorvastatin [Lipitor] 20 mg PO HS tab 06/18/14 [Rx] propylthiouraciL [Propylthiouracil] 50 mg PO BID tablet 06/18/14 [Rx] Clopidogrel [Plavix] 75 mg PO DAILY 08/29/14 [History] Aspirin [Adult Low Dose Aspirin EC] 81 mg PO DAILY 10/07/20 [History] Famotidine 20 mg PO BID 10/07/20 [History] Metoprolol Tartrate [Lopressor] 25 mg PO DAILY@1200 10/07/20 [History] Metoprolol Tartrate [Lopressor] 75 mg PO BID@0800,1800 10/07/20 [History] ALPRAZolam [Xanax] 0.25 mg PO BID PRN 01/06/21 [History] Acetaminophen [Tylenol Extra Strength] 1,000 mg PO BID 01/06/21 [History] Nicotine 14Mg/24Hr Patch [Habitrol] 1 patch TRANSDERM DAILY patch 01/08/21 [Rx] Follow up Appointment(s)/Referral(s): Arpit aCmpos MD [STAFF PHYSICIAN] - 1-2 days Leandro Krishna MD [STAFF PHYSICIAN] - 1 Week Patient Instructions/Handouts: Pseudoaneurysm (DC)
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
--- NOTE | 2021-01-09 09:06 | US ---
EXAMINATION TYPE: US inj pseudoaneurysm DATE OF EXAM: 01/07/2021 COMPARISON: Prior ultrasound 01/04/2021 CLINICAL HISTORY: PSEUDOANEURSYM. Status post cardiac catheterization EXAM PERFORMED: Grayscale and color Doppler duplex imaging performed of the groin, post cardiac kacie ter to assess for pseudoaneurysm and for procedure planning. SIDE PERFORMED: Left Color and Waveform Doppler performed to assess for the presence of pseudoaneurysm; Left groin pseudoaneurysm is redemonstrated. Following informed consent the skin overlying the pseudo aneurysm was localized with ultrasound and the overlying skin prepped and draped. Lidocaine was used for local anesthesia. Approximately 100 units of thrombin were injected into the pseudoaneurysm under direct ultrasound observation. Spontaneous thrombosis was identified. Patient remained neurovascular ly intact distally. There is no immediate competition. No bleeding. Patient remained in stable condit ion. IMPRESSION: Status post pseudoaneurysm injection left groin with thrombin, thrombosis is noted spontaneously. This procedure performed by the undersigned.
== END 2021-01-08 13:00 | disposition home or self-care (01) ==
LOC: EC 14:56 → 6NMEDSUR 19:20
PROVIDERS: ADMIT Internal Medicine; ATTEND Internal Medicine
DX: I72.8 Aneurysm of other specified arteries (principal); Z20.822 Contact with and (suspected) exposure to COVID-19; Z86.73 Personal history of transient ischemic attack (TIA), and cerebral infarction without residual deficits; Z85.048 Personal history of other malignant neoplasm of rectum, rectosigmoid junction, and anus; E03.9 Hypothyroidism, unspecified; E05.90 Thyrotoxicosis, unspecified without thyrotoxic crisis or storm; E78.5 Hyperlipidemia, unspecified; F17.200 Nicotine dependence, unspecified, uncomplicated; F41.9 Anxiety disorder, unspecified; I10 Essential (primary) hypertension; I73.9 Peripheral vascular disease, unspecified; J44.9 Chronic obstructive pulmonary disease, unspecified; M81.0 Age-related osteoporosis without current pathological fracture; Z79.02 Long term (current) use of antithrombotics/antiplatelets; Z79.82 Long term (current) use of aspirin; Z79.899 Other long term (current) drug therapy; Z92.3 Personal history of irradiation
CPT/HCPCS: 96360; 96361 ×2; 99285; 36415; 93005; 80053 ×2; 83735; 84484; 85025 ×2; 85610; 85730; 87635; 93975 ×2; 93926; 36002; 71275; G0378 ×3; S4990 ×3; Q9967

== ENCOUNTER → 2022-07-16 | Outpatient (CLI) | payer MEDICARE ==
--- NOTE | 2022-07-16 12:10 | XR ---
EXAMINATION TYPE: XR Hip Complete LT DATE OF EXAM: 07/16/2022 COMPARISON: None HISTORY: Left hip pain, chronic TECHNIQUE: 2 view left hip FINDINGS: There is narrowing of the femoral acetabular joint space at the left hip. Some femoral head spurring is noted inferiorly. No acute fractures or dislocations are evident. Stent is within the di stal iliac artery and proximal common femoral artery. IMPRESSION: 1. No acute osseous abnormality left hip. 2. Osteoarthritic degenerative-type changes.
== END | disposition home or self-care (01) ==
LOC: RADXRMAIN 11:08
PROVIDERS: ATTEND Internal Medicine
DX: M16.12 Unilateral primary osteoarthritis, left hip (principal); G89.29 Other chronic pain
CPT/HCPCS: 73502

== ENCOUNTER → 2022-09-07 | Day surgery (SDC) | payer MEDICARE ==
[~2022-09-07] MED LIST changes: +FAMOTIDINE 20 MG TAB PO STA; +IOPAMIDOL-250 100ML BTL INTRAARTER ONE; +LIDOCAINE 1% INJ 10MG/ML (20 ML MDV) ONE; +LIDOCAINE 1% INJ 10MG/ML (30 ML VIAL-PF) SQ ONE; +METOPROLOL TARTRATE 25 MG TAB PO STA; +MIDAZOLAM 2 MG/2 ML VIAL IVP ONE; +NALOXONE 0.4 MG/ML 1 ML VIAL IVP PRN; +ZOLPIDEM 5 MG TAB PO PRN; +fentaNYL (PF) 50 MCG/ML 2 ML AMP ONE; +hydrALAZINE HCL 20 MG/ML 1 ML VIAL ONE
[2022-09-07 07:26] LABS: Basophils # (A) 0.1 k/uL (0-0.2); Basophils % (A) 1 %; Eosinophils # (A) 0.2 k/uL (0-0.7); Eosinophils % (A) 2 %; HCT 44.4 % (34.0-46.0); HGB 14.6 gm/dL (11.4-16.0); Lymphocytes % (A) 11 %; MCH 32.1 pg (25.0-35.0); MCHC 32.8 g/dL (31.0-37.0); MCV 97.6 fL (80.0-100.0); Mean Platelet Volume 7.1; Monocytes # (A) 0.7 k/uL (0-1.0); Monocytes % (A) 7 %; Neutrophils # (A) 7.4 k/uL (1.3-7.7); Neutrophils % (A) 78 %; Platelet Count 237 k/uL (150-450); RBC 4.55 m/uL (3.80-5.40); RDW 13.1 % (11.5-15.5); WBC 9.5 k/uL (3.8-10.6)
[2022-09-07 07:28] VITALS: RESP 16; TEMP 96
[2022-09-07 07:49] LABS: African American GFR (CKD) >90 (>60 ml/min/1.73 sqM); Anion Gap 6 mmol/L; Blood Urea Nitrogen 13 mg/dL (7-17); Calcium 9.3 mg/dL (8.4-10.2); Carbon Dioxide 29 mmol/L (22-30); Chloride 96 mmol/L (98-107); Glucose 113 mg/dL (74-99); Non-African American GFR(CKD) >90 (>60 ml/min/1.73 sqM); Sodium 131 mmol/L (137-145)
[2022-09-07 07:53] LABS: Potassium 4.6 mmol/L (3.5-5.1)
[2022-09-07] MEDS: fentaNYL (PF) 50 MCG/ML 2 ML AMP IVP ONE ×2 (09:25→09:29)
--- NOTE | 2022-09-07 09:58 | P.PCN ---
Date of Procedure: 09/07/22 Operative Findings: AN ABDOMINAL AORTOGRAM AND BILATERAL LOWER EXTREMITIES RUNOFF PERFORMING PHYSICIAN: Leandro Krishna MD PROCEDURE PERFORMED: 1. An abdominal aortogram 2. Bilateral lower extremities runoff 3. Ultrasound-guided access of the left common femoral artery INDICATION: Intermittent claudication and abnormal arterial duplex study COMPLICATION: None LEVEL OF SEDATION: Moderate was sedation length of 17 minutes APPROACH: Right common femoral artery PROCEDURE DESCRIPTION: After obtaining informed consent and explaining the procedure benefits, risks, and complications, the patient was brought to the cardiac slab lifting supervisor. The left groin was prepped and draped in sterile fashion. The left common femoral artery was cannulated using micropuncture technique, under ultrasound guidance. A micropuncture wire was advanced, and the micropuncture sheath was advanced over the wire, then the micropuncture sheath was exchanged over an 0.35 wire into a 5-Turkmen sheath dilator assembly then the wire and dilator were removed and sheath was flushed. We did an abdominal aortogram and bilateral lower extremities runoff using 5- Turkmen pigtail catheter using a power injection. The catheter was initially placed at the level of the renal arteries, and it was pulled into above the bifurcation of the aorta into right and left common iliac arteries. The procedure was completed and there was no complications. SELECTIVE PERIPHERAL ANGIOGRAM: The abdominal aorta: Calcified was mild disease only The common iliac arteries: Right common iliac artery appeared to have severe lesion in the range of 70-80% lesion is calcified. The external iliac arteries: The right and left external iliac arteries appeared to have mild disease only The internal iliac arteries: The right internal iliac artery is patent and the left internal iliac artery was not well-opacified The common femoral arteries: The right common femoral artery appeared to have severe calcified plaque. The left common femoral artery appeared to have mild disease only Superficial femoral arteries: The right SFA is patent. The left SFA is occluded from the ostium to the midportion Popliteal arteries: Both popliteals appeared to have mild disease only Below the knees: Three-vessel runoff below the knee bilaterally CONCLUSION: Severe right iliac disease Possible severe right common femoral artery disease Occluded left SFA
--- NOTE | 2022-09-07 09:59 | IR ---
EXAMINATION TYPE: IR angio abdominal w runoff DATE OF EXAM: 09/07/2022 CLINICAL HISTORY: Leg pain. TECHNIQUE: Fluoroscopy. COMPARISON: None. FINDINGS: Fluoroscopic guidance was provided during abdominal angiogram with bilateral lower extremi ty runoff procedure performed by Dr. Krishna. A total of 2.6 minute of fluoroscopic time was utilized d uring the procedure and 199 spot images was acquired. Please refer to procedure note for further deta ils. IMPRESSION: As Above. TOTAL DAP = 2.53 Gy cm2
[2022-09-07 12:29] VITALS: BP 115/56; PULSE 67
== END ==
LOC: CATHCVL 06:29
PROVIDERS: ATTEND Internal Medicine Interventional Cardiology
DX: I70.213 Atherosclerosis of native arteries of extremities with intermittent claudication, bilateral legs (principal); I10 Essential (primary) hypertension; E78.5 Hyperlipidemia, unspecified; F17.210 Nicotine dependence, cigarettes, uncomplicated; I65.23 Occlusion and stenosis of bilateral carotid arteries; I34.0 Nonrheumatic mitral (valve) insufficiency; Z78.9 Other specified health status; Z79.82 Long term (current) use of aspirin; Z79.899 Other long term (current) drug therapy
CPT/HCPCS: 36200; 75625; 75716; 76937; 80048; 85025; C1769 ×2; C1894 ×2; J2250; J0360; J2001; J3010; Q9966

== ENCOUNTER 2022-10-17 06:07 | Day surgery (SDC) | payer MEDICARE ==
[2022-10-10 12:01] VITALS: BMI 24.3
[2022-10-17] MEDS ORDERED: ALPRAZolam 0.25 MG TAB PO PRN (06:26)
[2022-10-17] MEDS ORDERED: SODIUM CHLORIDE 0.9% 1,000 ML in EMPTY BAG 1 BAG IV ONE (06:26)
[2022-10-17] MEDS ORDERED: ASPIRIN 325 MG TAB PO PRN (06:26)
[2022-10-17] MEDS ORDERED: SODIUM CHLORIDE 0.9% 1,000 ML IV ONE (06:41)
[2022-10-17] MEDS ORDERED: ASPIRIN 81 MG ONE (06:50)
[2022-10-17 07:14] VITALS: RESP 16; TEMP 97.8
[2022-10-17] MEDS ORDERED: LIDOCAINE 1% INJ 10MG/ML (20 ML MDV) ONE ×3 (08:33→10:10)
[2022-10-17] MEDS ORDERED: HEPARIN SODIUM 1,000 UN/ML (10ML VL) ONE (08:57)
[2022-10-17] MEDS ORDERED: niCARdipine 25 MG/10 ML VIAL ONE (08:59)
[2022-10-17] MEDS ORDERED: MIDAZOLAM 2 MG/2 ML VIAL IVP ONE (09:17)
[2022-10-17] MEDS ORDERED: LIDOCAINE 1% INJ 10MG/ML (20 ML MDV) SQ ONE ×2 (09:20→10:11)
[2022-10-17] MEDS ORDERED: fentaNYL (PF) 50 MCG/ML 2 ML AMP ONE (09:34)
[2022-10-17] MEDS: fentaNYL (PF) 50 MCG/ML 2 ML AMP IV ONE ×2 (09:38→10:43)
[2022-10-17] MEDS ORDERED: HEPARIN SODIUM 1,000 UN/ML (10ML VL) IV ONE (09:45)
[2022-10-17] MEDS ORDERED: ATROPINE SULFATE 0.1 MG/ML 10ML SYRINGE IV ONE (09:54)
[2022-10-17] MEDS ORDERED: PHENYLEPHRINE-0.9% NACL SYG 1,000 MCG/10 ML SYRINGE IV ONE (09:55)
[2022-10-17] MEDS ORDERED: SODIUM CHLORIDE 0.9% 500 ML 500 ML with niCARdipine 6.25 MG, NITROGLYCERIN-D5W PMX 0.05... IV ONE ×4 (10:00)
[2022-10-17] MEDS ORDERED: NALOXONE 0.4 MG/ML 1 ML VIAL IVP PRN (10:56)
[2022-10-17] MEDS ORDERED: IOPAMIDOL-250 100ML BTL INTRAARTER ONE (10:56)
[2022-10-17] MEDS ORDERED: SODIUM CHLORIDE 0.9% 1,000 ML in EMPTY BAG 1 BAG IV SCH (11:00)
--- NOTE | 2022-10-17 11:01 | P.PCN ---
Date of Procedure: 10/17/22 Operative Findings: PERCUTANEOUS PERIPHERAL INTERVENTION Performing physician Leandro Krishna M.D. Procedure performed 1. Intravascular ultrasound of the right common iliac artery and right right common iliac artery angiogram 2. Left lower extremity angiogram 3. Right common femoral artery angiogram 4. Ultrasound guided access of the right common femoral artery Indication Bilateral lower extremity discomfort concerning for intermittent claudication in this 72-year-old female patient who is known to have PAD Approach Right common femoral artery Complications None Level of sedation Moderate with a sedation time of 90 minutes Procedure description After obtaining an informed consent the patient was brought to the cardiac ammunition assembly i laborer. The right common femoral artery was cannulated using micropuncture technique under ultrasound guidance, the micropuncture wire passed easily then I place a 6-Ukrainian sheath 55 cm. Subsequently using 5-Ukrainian rim catheter I was able to go up and over to the external left iliac artery. That was performed over 5-Ukrainian rim catheter and 035 stiff Glidewire. At that point I did left lower extremity angiogram and that showed occluded SFA on long segment extends from the ostial to the midportion. There was 2 vessels run off with posterior tibial and peroneal. Since we could not find any To place the wire proximally I decided to axis the foot on the left side. Attempting accessing the left poste rior tibial artery and left anterior tibial artery was unsuccessful. At that point I decided to go ahead and assess the hemodynamic significance of the lesion in the right iliac artery. So right common iliac artery angiogram was performed and that showed no evidence of obstructive disease confirmed by intravascular ultrasound. Subsequently the procedure was in the and I did exchange my long sheath into short sheath using 035 stiff Glidewire. The procedure was completed was no complication Postprocedure management 1. Dual antiplatelet therapy 2. Aggressive cholesterol control 3. Risk factors modification 4. Follow-up with the patient
[2022-10-17] MEDS ORDERED: ATROPINE SULFATE 0.1 MG/ML 10ML SYRINGE ONE (11:02)
[2022-10-17] MEDS ORDERED: PHENYLEPHRINE 10 MG/ML VIAL IV ONE (11:14)
--- NOTE | 2022-10-17 11:28 | IR ---
EXAMINATION TYPE: IR angio lower extremity BI DATE OF EXAM: 10/17/2022 COMPARISON: NONE HISTORY: Fluoroscopy time. Fluoroscopy was provided to the referring clinician.
[2022-10-17 18:16] VITALS: BP 139/62; PULSE 65
== END 2022-10-17 16:56 | disposition home or self-care (01) ==
LOC: CATHCVL 06:07
PROVIDERS: ATTEND Internal Medicine Interventional Cardiology
DX: I70.213 Atherosclerosis of native arteries of extremities with intermittent claudication, bilateral legs (principal); I10 Essential (primary) hypertension; E78.5 Hyperlipidemia, unspecified; F17.210 Nicotine dependence, cigarettes, uncomplicated; Z79.82 Long term (current) use of aspirin; Z88.5 Allergy status to narcotic agent; Z88.0 Allergy status to penicillin; Z79.899 Other long term (current) drug therapy
CPT/HCPCS: 36248; 75710; 76937; 36247; C1894 ×3; C1769 ×4; C1753; J2250; J2370 ×2; J2001; J0461; J3010; J1644; Q9966

== ENCOUNTER 2022-12-28 06:12 | Inpatient (IN) | payer MEDICARE ==
[~2022-12-28 06:12] MED LIST changes: -ALPRAZolam 0.25 MG TAB PO PRN; -ASPIRIN 325 MG TAB PO PRN; -FAMOTIDINE 20 MG TAB PO STA; -HEPARIN SODIUM,PORCINE 10,000 UNIT in SODIUM CHLORIDE 0.9% 1,000 ML IRRIGATION PRN; -HEPARIN SODIUM,PORCINE 2,500 UNIT in SODIUM CHLORIDE 0.9% 250 ML IRRIGATION PRN; -IOPAMIDOL-250 100ML BTL INTRAARTER ONE; -LIDOCAINE 1% INJ 10MG/ML (20 ML MDV) ONE; -LIDOCAINE 1% INJ 10MG/ML (30 ML VIAL-PF) SQ ONE; -METOPROLOL TARTRATE 25 MG TAB PO STA; -MIDAZOLAM 2 MG/2 ML VIAL IVP ONE; -NALOXONE 0.4 MG/ML 1 ML VIAL IVP PRN; -fentaNYL (PF) 50 MCG/ML 2 ML AMP ONE; -hydrALAZINE HCL 20 MG/ML 1 ML VIAL ONE
[2022-12-28] MEDS ORDERED: SODIUM CHLORIDE 0.9% 1,000 ML IV ONE ×2 (06:29→17:15)
[2022-12-28] MEDS: ALPRAZolam 0.25 MG TAB PO PRN ×2 (06:55→23:24)
[2022-12-28] MEDS ORDERED: HEPARIN SODIUM,PORCINE 10,000 UNIT in SODIUM CHLORIDE 0.9% 1,000 ML IRRIGATION PRN (07:00)
[2022-12-28] MEDS ORDERED: HEPARIN SODIUM,PORCINE (1 ML) 2,500 UNIT in SODIUM CHLORIDE 0.9% 250 ML IRRIGATION PRN (07:00)
[2022-12-28] MEDS ORDERED: ASPIRIN 325 MG TAB PO PRN (07:00)
[2022-12-28] MEDS ORDERED: LIDOCAINE 1% INJ 10MG/ML (20 ML MDV) ONE ×2 (07:11→07:51)
[2022-12-28] MEDS ORDERED: niCARdipine 25 MG/10 ML VIAL ONE (07:36)
[2022-12-28] MEDS ORDERED: LIDOCAINE 1% INJ 10MG/ML (30 ML VIAL-PF) SQ ONE ×3 (07:45→15:43)
[2022-12-28] MEDS ORDERED: fentaNYL (PF) 50 MCG/ML 2 ML AMP ONE ×2 (07:50→09:35)
[2022-12-28] MEDS ORDERED: MIDAZOLAM 2 MG/2 ML VIAL IVP ONE ×2 (07:54→15:43)
[2022-12-28] MEDS: fentaNYL (PF) 50 MCG/1 ML VIAL IVP ONE ×2 (07:54→08:02)
[2022-12-28] MEDS ORDERED: HEPARIN SODIUM 1,000 UN/ML (10ML VL) ONE (08:11)
[2022-12-28] MEDS ORDERED: SODIUM CHLORIDE 0.9% 500 ML 500 ML with niCARdipine 6.25 MG, NITROGLYCERIN-D5W PMX 0.05... IV ONE ×16 (08:20→09:45)
[2022-12-28] MEDS ORDERED: HEPARIN SODIUM 1,000 UN/ML (10ML VL) IV ONE (08:25)
[2022-12-28] MEDS: MIDAZOLAM 2 MG/2 ML VIAL IVP ONE ×2 (08:55→09:02)
[2022-12-28] MEDS ORDERED: fentaNYL (PF) 50 MCG/ML 2 ML AMP IVP ONE (09:36)
[2022-12-28] MEDS ORDERED: IOPAMIDOL-250 100ML BTL INTRAARTER ONE ×3 (10:00→15:57)
[2022-12-28] MEDS ORDERED: NALOXONE 0.4 MG/ML 1 ML VIAL IVP PRN (10:09)
[2022-12-28 10:31] LABS: Glucose,Whole Blood 143 mg/dL (70-110)
[2022-12-28] MEDS ORDERED: ONDANSETRON 4 MG/2 ML VIAL ONE (10:46)
[2022-12-28] MEDS ORDERED: ACETAMINOPHEN TAB 500 MG TAB PO ONE (11:47)
--- NOTE | 2022-12-28 12:20 | P.PCN ---
Date of Procedure: 12/28/22 Operative Findings: PERCUTANEOUS PERIPHERAL INTERVENTION Performing physician Leandro Krishna M.D. Procedure performed 1. Intravascular ultrasound of the left common femoral artery and left profunda 2. Angiogram of the left common femoral artery and left profunda and the right common femoral artery 3. Ultrasound guided access of the right common femoral artery and left posterior tibial artery 4. Attempted balloon angioplasty of the left SFA Indication Occluded left SFA in this 72-year-old female patient was symptomatic Approach Right common femoral artery and left posterior tibial artery Complications None Level of sedation Moderate with a sedation time of 120 minutes Procedure description After obtaining an informed consent the patient was brought to the cardiac cathode maker. The right common femoral artery was cannulated using micropuncture technique under ultrasound guidance the micro-puncture wire passed easily then placed sheath 11 cm at the right common femoral artery. Subsequently admitted exchanged the 6-Scottish 11 cm into a 55 cm 6-Scottish sheath. After that I did selective the left profunda using 035 stiff Glidewire with a backup support of 5-Scottish rim catheter. Subsequently I did advance the sheath over the wire and the sheath dilator all the way to the left common femoral artery. Anticoagulation was initiated using heparin with continuous ACT monitoring. At that point I did access the left posterior tibial artery using micropuncture needle under ultrasound guidance then I placed a slender 5/6-Scottish at the left posterior tibial artery. Attempted crossing the SFA in ipsilateral retrograde technique was performed and was unsuccessful using 018 and 035 wire. I did not attempt in antegrade technique because the patient has a flush occlusion of the left SFA and there is no way to put the wire in the common femoral artery. I placed an SAMUEL catheter in the left profunda and left common femoral artery trying to find out the takeoff of the left SFA but in spite of that that was unsuccessful. Also angiogram was performed of the left profunda and left common femoral artery. At that point we decided to stop. The procedure was completed was no complication. I did exchange my long sheath into short sheath using 035 stiff Glidewire before I did selective right common femoral artery angiogram Postprocedure management 1. Dual antiplatelet therapy 2. Aggressive cholesterol control 3. Risk factors modification 4. Follow-up with the patient
[2022-12-28] MEDS: DOPamine DRIP 800 MG in DEXTROSE/WATER 1 250ML.BAG IV SCH (12:25)
[2022-12-28] MEDS ORDERED: ATROPINE SULFATE 0.1 MG/ML 10ML SYRINGE ONE (13:42)
--- NOTE | 2022-12-28 14:52 | CT ---
EXAMINATION TYPE: CT abdomen pelvis wo con DATE OF EXAM: 12/28/2022 COMPARISON: None HISTORY: 72-year-old female abdominal pain after inguinal sheath placement, rule out retroperitoneal bleed, LLQ pain post inguinal sheath placement CT DLP: 1038.3 mGycm. Automated exposure control for dose reduction was used. TECHNIQUE: Contiguous axial scanning of the abdomen and pelvis without IV contrast. Scanning was cont inued down through the bilateral lower extremities. Coronal and sagittal reconstructions performed. FINDINGS: Heart borderline in size. Dense mitral annular calcifications. Extensive coronary artery calcificatio ns. Some chronic appearing interstitial changes in the lower lungs. Moderate-sized hiatal hernia. Noncontrast appearance of the liver, gallbladder, adrenal glands, right kidney, spleen, and pancreas show no gross abnormality. There is exophytic cyst posterior upper left kidney measuring up to 4.7 cm. Moderate to severe at the sclerotic calcifications throughout the abdominal aorta and iliac arteries. Bilateral iliac artery bypass grafts are present, the left-sided graft extends to the level of the c ommon femoral artery. Patency is not assessed on this noncontrast study. No dilated small bowel, free fluid, or free air. There is a right femoral artery catheter extending to the upper right external iliac artery. Prominent hemorrhage and foci of air are present along the left femoral chain chain of the upper to m id left thigh. Retroperitoneal hemorrhage extends along the left external iliac vessels and then up a long the left lateral retroperitoneum to the lower left pararenal space measuring up to 19.5 cm crani ocaudal by 7.9 cm wide by 6.7 cm AP. There may be small amount of intraperitoneal extension of hemorrhage in the pelvis over to the right adnexa. A few small foci of air are seen in the deep posterior mid calf soft tissues. Possibly tracking vascu lar air. Staple line at the rectosigmoid junction. IMPRESSION: 1. Exam positive for left inguinal perivascular hematoma along the upper to mid femoral chain. Contig uous retroperitoneal hematoma measuring up to 19.5 cm craniocaudal and 7.9 cm wide within the pelvis/ abdomen extending up to the lower left pararenal space. There is anterior extraperitoneal extension t o the midline pelvis and suspect some possible intraperitoneal extension in the pelvis over to the ri ght adnexa. 2. Some mild bruising/strandy hemorrhage at the right femoral arterial line.
[2022-12-28 14:59] LABS: Basophils % (A) 0 %; Eosinophils # (A) 0.1 k/uL (0-0.7); Eosinophils % (A) 0 %; HCT 34.2 % (34.0-46.0); HGB 11.3 gm/dL (11.4-16.0); Lymphocytes # (A) 0.9 k/uL (1.0-4.8); Lymphocytes % (A) 7 %; Mean Platelet Volume 7.6; Monocytes # (A) 0.6 k/uL (0-1.0); Monocytes % (A) 5 %; Neutrophils # (A) 11.3 k/uL (1.3-7.7); Neutrophils % (A) 87 %; Platelet Count 245 k/uL (150-450); RBC 3.52 m/uL (3.80-5.40); RDW 13.2 % (11.5-15.5)
[2022-12-28] MEDS ORDERED: IV FLUID CONTINUATION 1,000 ML IV ONE (15:21)
[2022-12-28 16:34] LABS: Glucose,Whole Blood 134 mg/dL (70-110)
[2022-12-28] MEDS ORDERED: NOREPINEPHRINE 4 MG in SODIUM CHLORIDE 0.9% 250 ML IV SCH (17:00)
[2022-12-28 17:41] LABS: Basophils % (A) 0 %; Eosinophils % (A) 0 %; HCT 34.7 % (34.0-46.0); HGB 11.2 gm/dL (11.4-16.0); Lymphocytes # (A) 0.7 k/uL (1.0-4.8); Lymphocytes % (A) 5 %; MCH 31.7 pg (25.0-35.0); MCHC 32.2 g/dL (31.0-37.0); MCV 98.5 fL (80.0-100.0); Mean Platelet Volume 7.4; Monocytes # (A) 0.6 k/uL (0-1.0); Monocytes % (A) 4 %; Neutrophils # (A) 11.6 k/uL (1.3-7.7); Neutrophils % (A) 89 %; Platelet Count 251 k/uL (150-450); RBC 3.53 m/uL (3.80-5.40); RDW 12.8 % (11.5-15.5); WBC 13.1 k/uL (3.8-10.6)
[2022-12-28] MEDS: ACETAMINOPHEN TAB 500 MG TAB PO PRN (17:44)
[2022-12-28] MEDS ORDERED: METOPROLOL TARTRATE 25 MG TAB PO SCH (18:00)
[2022-12-28] MEDS: SODIUM CHLORIDE 0.9% 1,000 ML IV SCH (19:38)
[2022-12-28] MEDS: MIDODRINE 5 MG TAB PO SCH (19:38)
--- NOTE | 2022-12-28 19:41 | P.PCN ---
Date of Procedure: 12/28/22 Operative Findings: Peripheral angiogram Performing physician Leandro Krishna M.D. Procedure performed Selective left common and left external and left common femoral arteries angiogram Indication This is a 72-year-old female patient who underwent an attempted angioplasty earlier today of the left SFA from right groin approach. Subsequently she developed hypotension. Computed tomography scan without contrast was performed and showed possible bleeding. She was brought to the cardiac labview programmer for further evaluation. Please note that her pressure also was unstable. Approach Right common femoral artery Complication None Level of sedation Moderate sedation length about 12 minutes Procedure description The right groin sheath was in place. The sheath was flushed. Subsequently advanced [address] the way to the distal aorta. A rim catheter was advanced over the wire and the catheter was directed toward the stent in the left common iliac artery. Subsequently under digital subsection I did perform an angiogram and that revealed good flow in the iliac and femoral artery on the left side with no evidence of any extravasation or bleeding noted. Please note that the angiogram was performed on multiple views. Conclusion 1. No evidence of any bleeding or extravasation was identified Postprocedure management Continue monitoring in the intensive care. Support the blood pressure Monitor the hemoglobin Follow-up with the patient
[2022-12-28] MEDS: FAMOTIDINE 20 MG TAB PO SCH (20:35)
[2022-12-28] MEDS: ATORVASTATIN 20 MG TAB PO SCH (20:35)
[2022-12-28 20:55] LABS: Basophils % (A) 0 %; Eosinophils % (A) 0 %; HCT 32.3 % (34.0-46.0); HGB 10.7 gm/dL (11.4-16.0); Lymphocytes # (A) 0.4 k/uL (1.0-4.8); Lymphocytes % (A) 5 %; MCH 32.5 pg (25.0-35.0); MCHC 33.1 g/dL (31.0-37.0); MCV 98.3 fL (80.0-100.0); Mean Platelet Volume 8.8; Monocytes # (A) 0.3 k/uL (0-1.0); Monocytes % (A) 3 %; Neutrophils # (A) 8.5 k/uL (1.3-7.7); Neutrophils % (A) 92 %; Platelet Count 219 k/uL (150-450); RBC 3.29 m/uL (3.80-5.40); RDW 12.7 % (11.5-15.5); WBC 9.3 k/uL (3.8-10.6)
[2022-12-29 04:25] LABS: Basophils % (A) 0 %; Eosinophils % (A) 0 %; HCT 27.3 % (34.0-46.0); Lymphocytes # (A) 0.8 k/uL (1.0-4.8); Lymphocytes % (A) 9 %; MCHC 33.5 g/dL (31.0-37.0); MCV 98.4 fL (80.0-100.0); Mean Platelet Volume 7.3; Monocytes # (A) 0.6 k/uL (0-1.0); Monocytes % (A) 7 %; Neutrophils # (A) 7.6 k/uL (1.3-7.7); Neutrophils % (A) 83 %; Platelet Count 195 k/uL (150-450); RBC 2.77 m/uL (3.80-5.40); RDW 12.9 % (11.5-15.5); WBC 9.1 k/uL (3.8-10.6)
[2022-12-29 04:28] LABS: HGB 9.1 gm/dL (11.4-16.0)
[2022-12-29] MEDS: FAMOTIDINE 20 MG TAB PO SCH ×2 (06:41→16:32)
[2022-12-29] MEDS: LEVOTHYROXINE 75 MCG TAB PO SCH (06:41)
[2022-12-29] MEDS: MIDODRINE 5 MG TAB PO SCH ×3 (06:41→16:32)
[2022-12-29] MEDS: SODIUM CHLORIDE 0.9% 1,000 ML IV SCH (08:13)
[2022-12-29] MEDS: ASPIRIN 81 MG PO SCH (08:13)
[2022-12-29 08:42] LABS: African American GFR (CKD) >90 (>60 ml/min/1.73 sqM); Non-African American GFR(CKD) >90 (>60 ml/min/1.73 sqM)
[2022-12-29] MEDS ORDERED: CLOPIDOGREL 75 MG TAB PO SCH (09:00)
[2022-12-29] MEDS: ACETAMINOPHEN TAB 500 MG TAB PO PRN ×2 (09:48→20:09)
[2022-12-29] MEDS: NICOTINE 14MG/24HR PATCH TRANSDERM SCH (11:25)
[2022-12-29] MEDS: DOPamine DRIP 800 MG in DEXTROSE/WATER 1 250ML.BAG IV SCH (11:27)
--- NOTE | 2022-12-29 11:51 | P.DS ---
Providers Date of admission: 12/28/22 10:02 Attending physician: Leandro Krishna Primary care physician: [facility] Course: The patient is a pleasant 72-year-old female patient with a past medical history significant for carotid atherosclerosis and known occluded bilateral carotid arteries as well as PAD with a prior angioplasty of bilateral iliacs as well as his smoking and hypertension and dyslipidemia She underwent yesterday and attempted angioplasty of the left SFA which was concluded. The procedure was performed from the right groin and was also performed from the left pedal approach. The procedure completed was no complication. She hours after the procedure the patient was a slightly hypotensive. She was experiencing also symptoms of nausea. Her heart rate also dropped down to the 40s. Because of the symptoms and because of mild abdominal discomfort I did perform CTA of the abdomen and pelvis without contrast. The CT A came in to be concerning for retroperitoneal bleeding. The patient was subsequently admitted to the intensive care unit. She was on vasopressors with norepinephrine as well as dopamine. Her hemoglobin dropped to around 9. December [id number] The patient was seen and evaluated this morning. She is feeling better. Her last hemoglobin was around 9. She is off vasopressors. Yesterday she was started on midodrine. Beta wolfgang with metoprolol has been on hold. She is on dual antiplatelet therapy along with a statin. The patient would like to go home today. The examination is remarkable for regular rhythm with systolic murmur at the right upper sternal border and clear breathing sounds bilaterally. The left lower quadrant abdominal discomfort has resolved completely and the tenderness has resolved completely as well. Plan The patient would like to go home I am going to get the patient up and around. If she is asymptomatic and has been tolerating that well she potentially can be discharged home Obtain a hemoglobin around 6:00 tonight just to make sure the hemoglobin is not trending down Continue midodrine Continue holding the beta wolfgang Continue dual antiplatelet therapy amount with a statin Follow-up with the patient Plan - Discharge Summary Discharge Rx Participant: Yes New Discharge Prescriptions: New Midodrine [ProAmatine] 5 mg PO AC-TID #180 tab Continue Temazepam [Restoril] 30 mg PO HS Atorvastatin [Lipitor] 20 mg PO HS tab Clopidogrel [Plavix] 75 mg PO QAM Famotidine 20 mg PO BID Aspirin [Adult Low Dose Aspirin EC] 81 mg PO QAM Acetaminophen [Tylenol Extra Strength] 1,000 mg PO BID PRN PRN Reason: Pain Levothyroxine Sodium [Synthroid] 75 mcg PO QAM Discontinued Metoprolol Tartrate [Lopressor] 75 mg PO BID@0800,1800 Metoprolol Tartrate [Lopressor] 25 mg PO 1200 Discharge Medication List Temazepam [Restoril] 30 mg PO HS 06/17/14 [History] Atorvastatin [Lipitor] 20 mg PO HS tab 06/18/14 [Rx] Clopidogrel [Plavix] 75 mg PO QAM 08/29/14 [History] Aspirin [Adult Low Dose Aspirin EC] 81 mg PO QAM 10/07/20 [History] Famotidine 20 mg PO BID 10/07/20 [History] Acetaminophen [Tylenol Extra Strength] 1,000 mg PO BID PRN 01/06/21 [History] Levothyroxine Sodium [Synthroid] 75 mcg PO QAM 09/05/22 [History] Midodrine [ProAmatine] 5 mg PO AC-TID #180 tab 12/29/22 [Rx] Follow up Appointment(s)/Referral(s): Leandro Krishna MD [STAFF PHYSICIAN] - 1 Week
[2022-12-29] MEDS ORDERED: METOPROLOL TARTRATE 25 MG TAB PO SCH (12:00)
[2022-12-29] MEDS: ATORVASTATIN 20 MG TAB PO SCH (16:35)
[2022-12-29] MEDS ORDERED: SODIUM CHLORIDE 0.9% 1,000 ML IV SCH (17:45)
[2022-12-29] MEDS: ALPRAZolam 0.25 MG TAB PO PRN ×2 (17:46→20:56)
[2022-12-29] MEDS: DILTIAZEM 125 MG in SODIUM CHLORIDE 0.9% 100 ML IV SCH (18:03)
[2022-12-29] MEDS: METOPROLOL TARTRATE 25 MG TAB PO SCH (18:10)
[2022-12-29 18:17] LABS: HCT 27.6 % (34.0-46.0); HGB 9.2 gm/dL (11.4-16.0); MCH 32.8 pg (25.0-35.0); MCHC 33.3 g/dL (31.0-37.0); MCV 98.7 fL (80.0-100.0); Mean Platelet Volume 7.5; Platelet Count 207 k/uL (150-450); RBC 2.79 m/uL (3.80-5.40); RDW 12.9 % (11.5-15.5); WBC 12.6 k/uL (3.8-10.6)
[2022-12-29] MEDS ORDERED: MIDODRINE 5 MG TAB PO SCH (18:38)
[2022-12-30 04:08] LABS: Basophils % (A) 0 %; Eosinophils # (A) 0.1 k/uL (0-0.7); Eosinophils % (A) 1 %; HCT 23.9 % (34.0-46.0); Lymphocytes # (A) 0.9 k/uL (1.0-4.8); Lymphocytes % (A) 10 %; MCHC 32.2 g/dL (31.0-37.0); MCV 99.1 fL (80.0-100.0); Mean Platelet Volume 7.6; Monocytes # (A) 0.7 k/uL (0-1.0); Monocytes % (A) 8 %; Neutrophils # (A) 7.4 k/uL (1.3-7.7); Neutrophils % (A) 80 %; Platelet Count 178 k/uL (150-450); RBC 2.42 m/uL (3.80-5.40); RDW 13.2 % (11.5-15.5); WBC 9.3 k/uL (3.8-10.6)
[2022-12-30 04:19] LABS: African American GFR (CKD) >90 (>60 ml/min/1.73 sqM); Anion Gap 3 mmol/L; Blood Urea Nitrogen 11 mg/dL (7-17); Calcium 8.6 mg/dL (8.4-10.2); Carbon Dioxide 25 mmol/L (22-30); Chloride 103 mmol/L (98-107); Glucose 101 mg/dL (74-99); Non-African American GFR(CKD) 86 (>60 ml/min/1.73 sqM); Potassium 3.9 mmol/L (3.5-5.1); Sodium 131 mmol/L (137-145)
[2022-12-30 04:48] LABS: HGB 7.7 gm/dL (11.4-16.0)
[2022-12-30] MEDS: FAMOTIDINE 20 MG TAB PO SCH (06:05)
[2022-12-30] MEDS: LEVOTHYROXINE 75 MCG TAB PO SCH (06:05)
[2022-12-30] MEDS: MIDODRINE 5 MG TAB PO SCH ×2 (06:05→12:33)
[2022-12-30] MEDS: NICOTINE 14MG/24HR PATCH TRANSDERM SCH (07:57)
[2022-12-30] MEDS: ASPIRIN 81 MG PO SCH (07:57)
[2022-12-30] MEDS: METOPROLOL TARTRATE 25 MG TAB PO SCH (07:57)
[2022-12-30] MEDS ORDERED: CLOPIDOGREL 75 MG TAB PO SCH (09:00)
[2022-12-30] MEDS ORDERED: METOPROLOL TARTRATE 25 MG TAB PO STA (10:06)
[2022-12-30 12:09] LABS: HCT 25.4 % (34.0-46.0); HGB 8.2 gm/dL (11.4-16.0); MCH 31.9 pg (25.0-35.0); MCHC 32.3 g/dL (31.0-37.0); MCV 98.8 fL (80.0-100.0); Mean Platelet Volume 8.4; Platelet Count 179 k/uL (150-450); RBC 2.57 m/uL (3.80-5.40); RDW 13.2 % (11.5-15.5); WBC 10.1 k/uL (3.8-10.6)
[2022-12-30 12:35] VITALS: BP 120/71; PULSE 62; RESP 21; TEMP 97.6
--- NOTE | 2022-12-30 13:02 | CT ---
EXAMINATION TYPE: CT abdomen pelvis w con DATE OF EXAM: 12/30/2022 COMPARISON: 12/28/2022 HISTORY: Recent hematoma. drop in Hgb CT DLP: 874.3 mGycm Automated exposure control for dose reduction was used. CONTRAST: CT scan of the abdomen pelvis is performed with IV Contrast, patient injected with 100 ml mL of Isovu e 300. FINDINGS- LUNG BASES- small right pleural effusion with underlying basilar atelectasis bilaterally. COPD. LIVER/GB- No gross abnormality is appreciated. PANCREAS- No gross abnormality is seen. SPLEEN- tiny splenic granuloma. ADRENALS- No gross abnormality is seen. KIDNEYS/BLADDER-no hydronephrosis or nephrolithiasis. Simple left renal cyst noted. BOWEL- bowel gas pattern nonspecific with no obstruction previous surgery noted. Appendix not seen w ith certainty. LYMPH NODES- No greater than 1cm abdominal or pelvic lymph nodes are appreciated. OSSEOUS STRUCTURES- No significant abnormality is seen. OTHER- Exam positive for left inguinal perivascular hematoma along the upper to mid femoral chain. C ontiguous retroperitoneal hematoma within the pelvis/abdomen extending up to the lower left pararenal space. There is anterior extraperitoneal extension to the midline pelvis and suspect some possible i ntraperitoneal extension in the pelvis over to the right adnexa. Abnormal attenuation the right femoral soft tissues may be related to additional stable appearing hem orrhage or bruising. Abnormal attenuation in the left inguinal region with soft tissue air could be related to recent inst rumentation otherwise consider infection. Correlate clinically. Vascular stent is suspected. There is air within the bladder correlate for infection or recent Drake catheter insertion. Otherwise fistula in the differential diagnosis. Aorta of normal caliber with atherosclerotic changes. Bilateral iliac vascular stents are noted. Atherosclerotic change aorta. IMPRESSION- 1. Large left sided retroperitoneal\pelvic hematoma is slightly reduced in size relative to the prior exam. Air within the left inguinal region could be related to recent instrumentation correlate clini violet for confirmation to exclude infectious etiology. 2. Air within the bladder correlate for recent Drake catheter otherwise consider infectious etiology or fistula.
[2022-12-30] MEDS: DILTIAZEM 125 MG in SODIUM CHLORIDE 0.9% 100 ML IV SCH (15:51)
--- NOTE | 2022-12-30 16:11 | P.DS ---
Providers Date of admission: 12/28/22 10:02 Attending physician: Leandro Krishna Primary care physician: [facility] Course: The patient is a pleasant 72-year-old female patient with a past medical history significant for carotid atherosclerosis and known occluded bilateral carotid arteries as well as PAD with a prior angioplasty of bilateral iliacs as well as his smoking and hypertension and dyslipidemia She underwent 2 days ago an ttempted angioplasty of the left SFA which was concluded. The procedure was performed from the right groin and was also performed from the left pedal approach. The procedure completed was no complication. She hours after the procedure the patient was a slightly hypotensive. She was experiencing also symptoms of nausea. Her heart rate also dropped down to the 40s. Because of the symptoms and because of mild abdominal discomfort I did perform CTA of the abdomen and pelvis without contrast. The CT A came in to be concerning for retroperitoneal bleeding. The patient was subsequently admitted to the intensive care unit. She was on vasopressors with norepinephrine as well as dopamine. Her hemoglobin dropped to around 9. December 302022 The patient was seen and evaluated this morning. She is stable and she is not on any vasopressors. I repeated the computed tomography scan on her and that showed reduced size retroperitoneal hematoma. The last hemoglobin was above 7 as a [id number] last hemoglobin was 8.2. The patient is going and she would like to go home. She did have a brief episode of atrial fibrillation yesterday and she converted to normal sinus mechanism on Cardizem IV The examination showed soft nontender bilateral groins and no discrete hematoma noted. The patient is going to be discharged home on dual antiplatelet therapy along with beta wolfgang. I will follow-up with the patient in a week in the office Plan - Discharge Summary Discharge Rx Participant: Yes New Discharge Prescriptions: New Midodrine [ProAmatine] 5 mg PO AC-TID #180 tab Metoprolol Tartrate [Lopressor] 50 mg PO BID #180 tab Continue Temazepam [Restoril] 30 mg PO HS Atorvastatin [Lipitor] 20 mg PO HS tab Clopidogrel [Plavix] 75 mg PO QAM Famotidine 20 mg PO BID Aspirin [Adult Low Dose Aspirin EC] 81 mg PO QAM Acetaminophen [Tylenol Extra Strength] 1,000 mg PO BID PRN PRN Reason: Pain Levothyroxine Sodium [Synthroid] 75 mcg PO QAM Discontinued Metoprolol Tartrate [Lopressor] 75 mg PO BID@0800,1800 Metoprolol Tartrate [Lopressor] 25 mg PO 1200 Discharge Medication List Temazepam [Restoril] 30 mg PO HS 06/17/14 [History] Atorvastatin [Lipitor] 20 mg PO HS tab 06/18/14 [Rx] Clopidogrel [Plavix] 75 mg PO QAM 08/29/14 [History] Aspirin [Adult Low Dose Aspirin EC] 81 mg PO QAM 10/07/20 [History] Famotidine 20 mg PO BID 10/07/20 [History] Acetaminophen [Tylenol Extra Strength] 1,000 mg PO BID PRN 01/06/21 [History] Levothyroxine Sodium [Synthroid] 75 mcg PO QAM 09/05/22 [History] Midodrine [ProAmatine] 5 mg PO AC-TID #180 tab 12/29/22 [Rx] Metoprolol Tartrate [Lopressor] 50 mg PO BID #180 tab 12/30/22 [Rx] Follow up Appointment(s)/Referral(s): Leandro Krishna MD [STAFF PHYSICIAN] - 1 Week (patient to make own appointment during normal business hours) Elizabeth Veliz MD [Primary Care Provider] - As Needed (patient to make own appointment during normal business hours) Patient Instructions/Handouts: Angiogram (DC), Coronary Angioplasty (DC)
[2022-12-30] MEDS ORDERED: METOPROLOL TARTRATE 50 MG TAB PO SCH (21:00)
--- NOTE | 2023-01-01 08:15 | IR ---
EXAMINATION TYPE: IR angio lower extremity LT DATE OF EXAM: 12/28/2022 COMPARISON: NONE HISTORY: Fluoroscopy time. Fluoroscopy was provided to the referring clinician.
--- NOTE | 2023-01-01 08:16 | IR ---
EXAMINATION TYPE: IR angio lower extremity LT DATE OF EXAM: 12/28/2022 COMPARISON: NONE HISTORY: Fluoroscopy time. Fluoroscopy was provided to the referring clinician.
== END 2022-12-30 17:30 | disposition home or self-care (01) | DRG 299 ==
LOC: CATHCVL 06:12 → 2SICU 10:02
PROVIDERS: ADMIT Internal Medicine Interventional Cardiology; ATTEND Internal Medicine Interventional Cardiology
PROC: B41G1ZZ Fluoroscopy of Left Lower Extremity Arteries using Low Osmolar Contrast (ICD-10-PCS; 2022-12-28)
PROC: B44GZZ3 Ultrasonography of Left Lower Extremity Arteries, Intravascular (ICD-10-PCS; 2022-12-28)
PROC: B41D1ZZ Fluoroscopy of Aorta and Bilateral Lower Extremity Arteries using Low Osmolar Contrast (ICD-10-PCS; principal; 2022-12-28 07:30)
DX: I70.202 Unspecified atherosclerosis of native arteries of extremities, left leg (principal); K66.1 Hemoperitoneum; I69.354 Hemiplegia and hemiparesis following cerebral infarction affecting left non-dominant side; I10 Essential (primary) hypertension; I48.91 Unspecified atrial fibrillation; E05.90 Thyrotoxicosis, unspecified without thyrotoxic crisis or storm; E78.00 Pure hypercholesterolemia, unspecified; I08.1 Rheumatic disorders of both mitral and tricuspid valves; I65.23 Occlusion and stenosis of bilateral carotid arteries; F17.210 Nicotine dependence, cigarettes, uncomplicated; Z88.1 Allergy status to other antibiotic agents; Z88.0 Allergy status to penicillin; Z88.5 Allergy status to narcotic agent; Z79.899 Other long term (current) drug therapy; Z71.6 Tobacco abuse counseling
CPT/HCPCS: 74176; 74177; 80048; 82565; 85025; 85027; 86850; 86900; 86901

== ENCOUNTER 2023-01-01 15:27 | Inpatient (IN) | payer MEDICARE ==
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
[2023-01-01 17:45] LABS: Basophils % (A) 0 %; Eosinophils # (A) 0.1 k/uL (0-0.7); Eosinophils % (A) 2 %; HCT 27.8 % (34.0-46.0); HGB 9.2 gm/dL (11.4-16.0); Lymphocytes % (A) 14 %; MCH 32.2 pg (25.0-35.0); MCHC 32.9 g/dL (31.0-37.0); MCV 97.7 fL (80.0-100.0); Mean Platelet Volume 7.4; Monocytes # (A) 0.4 k/uL (0-1.0); Monocytes % (A) 6 %; Neutrophils # (A) 5.3 k/uL (1.3-7.7); Neutrophils % (A) 76 %; Platelet Count 248 k/uL (150-450); RBC 2.85 m/uL (3.80-5.40); RDW 13.8 % (11.5-15.5); WBC 6.9 k/uL (3.8-10.6)
--- NOTE | 2023-01-01 17:46 | XR ---
EXAMINATION TYPE: XR chest 2V DATE OF EXAM: 01/01/2023 COMPARISON: 10/31/2017 INDICATION: Short of breath TECHNIQUE: Frontal and lateral views of the chest are obtained. FINDINGS: The heart size is normal. The pulmonary vasculature is prominent. There is a 4.6 cm mass in the mid left lung. Some peripheral infiltrate is inferior. There may be richard e volume overload with increased lung markings present bilaterally in the mid and lower lung elizabeth.. IMPRESSION: 1. Left lung mass. Workup for neoplasm is recommended. 2. Prominent vascular markings. Correlate for volume overload.
[2023-01-01 17:56] LABS: ALT 19 U/L (4-34); AST 28 U/L (14-36); African American GFR (CKD) >90 (>60 ml/min/1.73 sqM); Albumin 3.8 g/dL (3.5-5.0); Alkaline Phosphatase 66 U/L (38-126); Anion Gap 6 mmol/L; Blood Urea Nitrogen 8 mg/dL (7-17); Calcium 9.5 mg/dL (8.4-10.2); Carbon Dioxide 27 mmol/L (22-30); Chloride 99 mmol/L (98-107); Glucose 98 mg/dL (74-99); Non-African American GFR(CKD) >90 (>60 ml/min/1.73 sqM); Potassium 4.2 mmol/L (3.5-5.1); Sodium 132 mmol/L (137-145); Total Bilirubin 0.8 mg/dL (0.2-1.3); Total Protein 6.7 g/dL (6.3-8.2)
[2023-01-02] MEDS ORDERED: TEMAZEPAM 15 MG CAP PO PRN (06:02)
[2023-01-02] MEDS ORDERED: HEPARIN SODIUM 1,000 UN/ML (10ML VL) IV PRN (06:04)
[2023-01-02] MEDS ORDERED: HEPARIN SODIUM 1,000 UN/ML (10ML VL) IV ONE (06:04)
[2023-01-02] MEDS ORDERED: HEPARIN SOD,PORK IN 0.45% NACL 25,000 UNIT in 0.45% NACL 1 250ML.BAG IV SCH (06:15)
[2023-01-02] MEDS: METOPROLOL TARTRATE 50 MG TAB PO SCH ×2 (06:18→19:44)
[2023-01-02] MEDS: ASPIRIN 81 MG PO SCH (06:19)
[2023-01-02] MEDS ORDERED: ONDANSETRON 4 MG/2 ML VIAL IVP STA (06:27)
[2023-01-02] MEDS ORDERED: LEVOTHYROXINE 75 MCG TAB PO SCH (06:30)
[2023-01-02] MEDS ORDERED: MORPHINE SULFATE 4 MG/ML SYRINGE IVP STA (06:54)
--- NOTE | 2023-01-02 07:33 | P.HPIM ---
History of Present Illness This is a pleasant 72 years old female with past medical history of COPD, CVA/TIA, GERD/Reflux, Hyperlipidemia, Hypertension, Osteoarthritis hypothyroidism, mitral regurgitation, balance problem requiring walker, colorectal cancer in 2006 status post surgical treatment, nicotine dependence Patient was recently discharged from the hospital/this facility. On 12/28 she underwent unsuccessful left lower extremity angiogram of the left common femoral artery angiogram. Procedure complicated by hypotension. And abdominal discomfort, CT of the abdomen showed retroperitoneal hemorrhage Patient was discharged on dual antiplatelet therapy on 12/30. Post discharge patient developed progressive dyspnea, orthopnea. Patient currently afebrile, blood pressure 167/79. Patient is slightly tachypneic with a breathing rate 20-22. Oxygen saturating 98% on 2 L oxygen Hemoglobin is 9.2. Rest of CBC is unremarkable and BMP and liver enzymes unremarkable Mildly elevated troponin 0.53. Pro-BMP elevated and is 6490. Chest x-ray: Left lung mass and prominent vascular markings suspicious for CHF, chest x-ray was reviewed by [facility] EKG showing left bundle branch block, QTC 513 Review of Systems Review of systems CONSTITUTIONAL: No fever, no malaise, no fatigue. HEENT: No recent visual problems or hearing problems. Denied any sore throat. CARDIOVASCULAR: No orthopnea, PND, no palpitations, no syncope. PULMONARY: No chest wall tenderness, no cough, no hemoptysis. GASTROINTESTINAL: No diarrhea, no nausea, no vomiting, no abdominal pain. Normoactive bowel sounds. NEUROLOGICAL: No headaches, no weakness, no numbness. HEMATOLOGICAL: Denies any bleeding or petechiae. GENITOURINARY: Denies any burning micturition, frequency, or urgency. MUSCULOSKELETAL/RHEUMATOLOGICAL: Denies any joint pain, swelling, or any muscle pain. ENDOCRINE: Denies any polyuria or polydipsia. Past Medical History Past Medical History: Cancer, COPD, CVA/TIA, GERD/Reflux, Hyperlipidemia, Hypertension, Osteoarthritis (OA), Thyroid Disorder, Vascular Disorder Additional Past Medical History / Comment(s): PAD IN BILATERAL LEGS/CAROTID DISEASE, MITRAL VALVE REGURGITATION, HX STROKE IN 2006, LEFT SIDE WAS AFFECTED, ABLE TO USE ARM AND LEG BUT USES CANE/WALKER FOR BALANCE, HX COLORECTAL CANCER IN 2006/SURGERY ONLY, "BILATERAL CAROTIDS 100% BLOCKED." HYPERTHYROID. History of Any Multi-Drug Resistant Organisms: None Reported Past Surgical History: Adenoidectomy, Appendectomy, Bowel Resection, Hysterectomy, Tonsillectomy, Tubal Ligation Additional Past Surgical History / Comment(s): BOWEL SURGERY FOR CANCER (NO CHEMO OR RADIATION), BILATERAL CATARACTS REMOVED, ATTEMPTED LEFT LEG ARTHRECTOMY. Past Anesthesia/Blood Transfusion Reactions: No Reported Reaction, Motion Sickness Additional Past Anesthesia/Blood Transfusion Reaction / Comment(s): CLAUSTERPHOBIA. Past Psychological History: Anxiety Smoking Status: Current every day smoker Past Alcohol Use History: Daily Additional Past Alcohol Use History / Comment(s): STARTED SMOKING AT AGE 14, SMOKES 1 PPD. Drinks 3 beers per day. Past Drug Use History: None Reported - Past Family History Father Family Medical History: Diabetes Mellitus, Hypertension, Myocardial Infarction ([place]) Additional Family Medical History / Comment(s): SMOKER. Mother Family Medical History: Dementia Additional Family Medical History / Comment(s): BIPOLAR, DEPRESSION. Medications and Allergies Home Medications Medication Instructions Recorded Confirmed Type Temazepam [Restoril] 30 mg PO HS 06/17/14 01/01/23 History Atorvastatin [Lipitor] 20 mg PO HS tab 06/18/14 01/01/23 Rx Clopidogrel [Plavix] 75 mg PO DAILY 08/29/14 01/01/23 History Aspirin [Adult Low Dose Aspirin EC] 81 mg PO DAILY 10/07/20 01/01/23 History Famotidine 20 mg PO BID 10/07/20 01/01/23 History Acetaminophen [Tylenol Extra 1,000 mg PO BID PRN 01/06/21 01/01/23 History Strength] Levothyroxine Sodium [Synthroid] 75 mcg PO DAILY 09/05/22 01/01/23 History Metoprolol Tartrate [Lopressor] 50 mg PO BID #180 tab 12/30/22 01/01/23 Rx Midodrine [ProAmatine] 5 mg PO BID 01/01/23 01/01/23 History Allergies Allergy/AdvReac Type Severity Reaction Status Date / Time azithromycin Allergy Severe Verified 01/01/23 22:44 Dizziness codeine Allergy FLUSHING Verified 01/01/23 22:44 Penicillins AdvReac dizziness Verified 01/01/23 22:44 Physical Exam Vitals: Vital Signs Temp Pulse Pulse Resp BP BP Pulse Ox 01/02/23 04:00 87 22 167/79 98 01/02/23 02:00 89 20 01/02/23 00:00 97.3 F L 89 18 159/80 99 01/01/23 23:18 97.3 F L 89 18 99 01/01/23 22:50 78 18 97/57 98 01/01/23 20:00 78 18 106/61 96 01/01/23 17:32 81 24 97/73 96 01/01/23 16:40 98 F 81 18 97/67 97 Intake and Output 01/01/23 01/01/23 01/02/23 14:59 22:59 06:59 Output Total 800 Balance -800 Output: Urine 800 Other: Voiding Method External Catheter # Voids 0 Weight 69.853 kg 69.853 kg GENERAL: The patient is alert and oriented x3, not in any acute distress. Well developed, well nourished. HEENT: Pupils are round and equally reacting to light. EOMI. No scleral icterus. No conjunctival pallor. Normocephalic, atraumatic. No pharyngeal erythema. No thyromegaly. -CARDIOVASCULAR: S1 and S2 present. Systolic murmurs and the upper sternal border, rubs, or gallops. -PULMONARY: Chest is clear to auscultation, no wheezing , no crackles. Mildly t achypneic ABDOMEN: Soft, nontender, nondistended, normoactive bowel sounds. No palpable organomegaly. MUSCULOSKELETAL: No joint swelling or deformity. EXTREMITIES: No cyanosis, clubbing, or pedal edema. NEUROLOGICAL: Gross neurological examination did not reveal any focal deficits. SKIN: No rashes. no petechiae. Results CBC & Chem 7: 01/01/23 16:50 01/01/23 16:50 Labs: Abnormal Lab Results - Last 24 Hours (Table) 01/01/23 01/01/23 01/01/23 Range/Units 16:50 16:50 16:50 RBC 2.85 L (3.80-5.40) m/uL Hgb 9.2 L (11.4-16.0) gm/dL Hct 27.8 L (34.0-46.0) % Sodium 132 L (137-145) mmol/L Troponin I 0.576 H* (0.000-0.034) ng/mL 01/01/23 01/02/23 Range/Units 22:38 02:18 RBC (3.80-5.40) m/uL Hgb (11.4-16.0) gm/dL Hct (34.0-46.0) % Sodium (137-145) mmol/L Troponin I 0.564 H* 0.582 H* (0.000-0.034) ng/mL Thrombosis Risk Factor Assmnt - Choose All That Apply Any of the Below Risk Factors Present?: Yes Each Factor Represents 1 point: Abnormal pulmonary function (COPD), Heart failure (<1month), Swollen legs (current) Other Risk Factors: Yes Each Risk Factor Represents 2 Points: Age 61-74 years Thrombosis Risk Factor Assessment Total Risk Factor Score: 5 Thrombosis Risk Factor Assessment Level: High Risk Assessment and Plan Assessment: Elevated troponin suspicious for an STEMI Pulmonary vascular congestion is suspected secondary to acute CHF Peripheral vascular disease including bilateral carotid stenosis and previous history of bilateral iliac angioplasty. Unsuccessful left SFA angioplasty on 12/28 Recent retroperitoneal hemorrhage, one week prior to hospitalization secondary to unsuccessful angioplasty of the lower extremity subacute blood loss anemia secondary to above Left lung mass suspicious for neoplasm Nicotine dependence Diabetes mellitus Hypertension Hyperlipidemia History of osteoarthritis Hypothyroidism Plan: pt is started on heparin drip by cardiology team Continue with aspirin Cardiology consult Pulmonary team consult for lung mass Labs and medication were reviewed.. Continue same treatment. Continue with symptomatic treatment. Resume home medication. Monitor lytes and vitals. DVT and GI prophylaxis. Further recommendations depends on the clinical course of the patient DVT prophylaxis: heparin GI Prophylaxis: Pepcid PT/OT: Pending Prognosis is guarded
[2023-01-02] MEDS ORDERED: ALPRAZolam 0.5 MG TAB PO PRN ×2 (07:34→07:55)
--- NOTE | 2023-01-02 07:42 | P.CNPUL ---
History of Present Illness Consult date: 01/02/23 Requesting physician: Farhat Simon Reason for consult: lung mass Chief complaint: Shortness of breath and increased lower extremity swelling History of present illness: I am seeing this patient in consultation today 01/02/2023 for a left upper lobe lung mass measuring up to 4.7 cm. Patient is actually admitted for CHF exacerbation and possible NSTEMI. Patient is a 72-year-old female with past medical history significant for peripheral vascular disease with previous stents to bilateral iliac arteries, previous CVA/TIA, carotid artery stenosis, hyperlipidemia, hypertension, hypothyroidism, colorectal cancer, and chronic ongoing nicotine dependence. Her primary care provider is Dr. Veliz. Patient was actually seen back in December, in the hospital and was found to have a 2 x 4 x 3 cm spiculated mass within the left upper lobe on chest CTA. There was recommendation for follow-up PET scan and biopsy. The patient did not follow-up outpatient. She states that even if it was cancer, she would not want treatment. She does not see the need to pursue biopsy. Patient was recently hospitalized back on December 28 for attempted angioplasty of the left SFA which was occluded. Postoperatively, there was concerns for large left-sided retroperitoneal/pelvic hematoma/bleed, and the patient was discharged home 3 days ago. Since then, she's been having significant shortness of breath. She states that the shortness breath is worse when laying flat. She also reports increased lower extremity swelling. Denies any chest pain, heart palpitations. Denies any infectious symptoms such as fever, chills, myalgias, cough, hemoptysis. She denies any history of COPD or asthma. Up until 5 days ago, she continued to smoke 1 pack per day. Does not utilize any inhalers at home. Patient is currently sitting up in bed, on 2 L/m nasal cannula, in no acute distress. Chest x-ray on arrival showed pulmonary vascular congestion, stable cardiac silhouette, and a 4.7 cm left upper lobe pulmonary mass. Concerning for possible malignancy. NT proBNP was elevated at 6490. Troponins are elevated but flat. ECG shows normal sinus rhythm with T-wave inversion and ST depression in the inferior and lateral leads. Patient was started on a heparin infusion per protocol. Most recent CBC shows a WBC count of 6.9, hemoglobin 9.2, hematocrit 27.8, platelets 248. Doesn't look like baseline coagulation profile was drawn. BMP shows sodium 132, potassium 4.2, chloride 99, serum bicarb 27, BUN 8, creatinine 0.57, glucose 98. Patient appears hemodynamically stable at this time. She is being monitored on the cardiac stepdown unit. Review of Systems REVIEW OF SYSTEMS: CONSTITUTIONAL: Denies any recent significant weight loss or weight gain. EYES: Denies change in vision. EARS, NOSE, MOUTH, THROAT: Denies headaches, denies sore throat. CARDIOVASCULAR: Denies chest pain, palpitations or syncopal episodes. Admits increased lower extremity swelling and orthopnea RESPIRATORY: See HPI GASTROINTESTINAL: Denies change in appetite, abdominal pain, nausea and vomiting, or diarrhea GENITOURINARY: Denies hematuria, denies infections. MUSKULOSKELETAL: Denies pain, denies swelling. INTEGUMENTARY: Denies rash, denies eczema. NEUROLOGICAL: Denies recent memory loss, no recent seizure activity. PSYCHIATRIC: Denies anxiety, denies depression. HEMATOLOGIC/LYMPHATIC: Denies anemia, denies enlarged lymph node Past Medical History Past Medical History: Cancer, COPD, CVA/TIA, GERD/Reflux, Hyperlipidemia, Hypertension, Osteoarthritis (OA), Thyroid Disorder, Vascular Disorder Additional Past Medical History / Comment(s): PAD IN BILATERAL LEGS/CAROTID DISE ASE, MITRAL VALVE REGURGITATION, HX STROKE IN 2006, LEFT SIDE WAS AFFECTED, ABLE TO USE ARM AND LEG BUT USES CANE/WALKER FOR BALANCE, HX COLORECTAL CANCER IN 2006/SURGERY ONLY, "BILATERAL CAROTIDS 100% BLOCKED." HYPERTHYROID. History of Any Multi-Drug Resistant Organisms: None Reported Past Surgical History: Adenoidectomy, Appendectomy, Bowel Resection, Hysterectomy, Tonsillectomy, Tubal Ligation Additional Past Surgical History / Comment(s): BOWEL SURGERY FOR CANCER (NO CHEMO OR RADIATION), BILATERAL CATARACTS REMOVED, ATTEMPTED LEFT LEG ARTHRECTOMY. Past Anesthesia/Blood Transfusion Reactions: No Reported Reaction, Motion Sickness Additional Past Anesthesia/Blood Transfusion Reaction / Comment(s): CLAUSTERPHOBIA. Past Psychological History: Anxiety Smoking Status: Current every day smoker Past Alcohol Use History: Daily Additional Past Alcohol Use History / Comment(s): STARTED SMOKING AT AGE 14, SMOKES 1 PPD. Drinks 3 beers per day. Past Drug Use History: None Reported - Past Family History Father Family Medical History: Diabetes Mellitus, Hypertension, Myocardial Infarction ([place]) Additional Family Medical History / Comment(s): SMOKER. Mother Family Medical History: Dementia Additional Family Medical History / Comment(s): BIPOLAR, DEPRESSION. Medications and Allergies Home Medications Medication Instructions Recorded Confirmed Type Temazepam [Restoril] 30 mg PO HS 06/17/14 01/01/23 History Atorvastatin [Lipitor] 20 mg PO HS tab 06/18/14 01/01/23 Rx Clopidogrel [Plavix] 75 mg PO DAILY 08/29/14 01/01/23 History Aspirin [Adult Low Dose Aspirin EC] 81 mg PO DAILY 10/07/20 01/01/23 History Famotidine 20 mg PO BID 10/07/20 01/01/23 History Acetaminophen [Tylenol Extra 1,000 mg PO BID PRN 01/06/21 01/01/23 History Strength] Levothyroxine Sodium [Synthroid] 75 mcg PO DAILY 09/05/22 01/01/23 History Metoprolol Tartrate [Lopressor] 50 mg PO BID #180 tab 12/30/22 01/01/23 Rx Midodrine [ProAmatine] 5 mg PO BID 01/01/23 01/01/23 History Allergies Allergy/AdvReac Type Severity Reaction Status Date / Time azithromycin Allergy Severe Verified 01/01/23 22:44 Dizziness codeine Allergy FLUSHING Verified 01/01/23 22:44 Penicillins AdvReac dizziness Verified 01/01/23 22:44 Physical Exam Vitals: Vital Signs Temp Pulse Pulse Resp BP BP Pulse Ox 01/02/23 04:00 87 22 167/79 98 01/02/23 02:00 89 20 01/02/23 00:00 97.3 F L 89 18 159/80 99 01/01/23 23:18 97.3 F L 89 18 99 01/01/23 22:50 78 18 97/57 98 01/01/23 20:00 78 18 106/61 96 01/01/23 17:32 81 24 97/73 96 01/01/23 16:40 98 F 81 18 97/67 97 Intake and Output 01/01/23 01/01/23 01/02/23 14:59 22:59 06:59 Output Total 800 Balance -800 Output: Urine 800 Other: Voiding Method External Catheter # Voids 0 Weight 69.853 kg 71.9 kg GENERAL EXAM: Alert, 72-year-old white female appearing stated age, comfortable in no apparent distress. HEAD: Normocephalic and atraumatic EYES: Normal reaction of pupils, equal size. NOSE: Clear with pink turbinates. THROAT: No erythema or exudates. NECK: No masses, no JVD. CHEST: No chest wall deformity. LUNGS: Equal air entry with scattered bibasilar inspiratory crackles, and mild and expiratory wheezes throughout. On 2 L/m nasal cannula. No conversational dyspnea or accessory muscle use.. CVS: S1 and S2 normal with no audible murmur, regular rhythm. No extra heart sounds ABDOMEN: No hepatosplenomegaly, active bowel sounds, no guarding or rigidity. SPINE: No scoliosis or deformity SKIN: No rashes CENTRAL NERVOUS SYSTEM: No focal deficits, tone is normal in all 4 extremities. EXTREMITIES: There is 1-2+ bilateral pitting ankle edema. No clubbing, or cyanosis. Peripheral pulses are intact. Results - Laboratory Findings CBC and BMP: 01/01/23 16:50 01/01/23 16:50 Abnormal lab findings: Abnormal Labs 01/01/23 01/01/23 01/01/23 16:50 16:50 16:50 RBC 2.85 L Hgb 9.2 L Hct 27.8 L Sodium 132 L Troponin I 0.576 H* 01/01/23 01/02/23 22:38 02:18 RBC Hgb Hct Sodium Troponin I 0.564 H* 0.582 H* - Diagnostic Findings Chest x-ray: image reviewed Assessment and Plan Assessment: Left upper lobe lung mass now measuring up to 4.7 cm. This was previously demonstrated on a chest CTA back on 01/06/2021, which demonstrated a 2 x 4 x 3 cm spiculated mass within the left upper lobe. There were recommendation for PET scan and possible biopsy. The patient never did follow up outpatient. Chest x-ray on this admission shows a 4.7 cm left upper lobe mass. Patient is unsure if she wants to pursue any further diagnostic workup or treatment in this regard. Suspected CHF exacerbation Acute hypoxemic respiratory failure, currently on 2 L/m nasal cannula, likely related to above Elevated troponins and possible NSTEMI, troponin elevation is flat. Anemia, without any obvious acute blood loss Severe peripheral vascular disease with previous stenting the bilateral iliac arteries. Patient underwent 2 attempts at revascularization of the left SFA which was occluded back on December 28. Suspected underlying chronic obstructive pulmonary disease Chronic ongoing nicotine dependence, patient does state that she quit smoking 5 days ago. She has significant smoking history of one pack per day for over 50 years. History of CVA/TIA History of carotid artery stenosis Benign essential hypertension Hyperlipidemia Hypothyroidism History of colorectal cancer in 2006 Plan: Patient's medications, labs, and imaging review Continue supplemental oxygen I recommended follow up PET scan and possible biopsy. Findings are obviously concerning for malignancy. She is unsure if she wants to pursue this. She would not like any aggressive treatment even if she did have malignancy. Cardiology was consulted for the patient's CHF exacerbation and possible NSTEMI. Heparin is infusing per protocol We will continue to follow and further recommendations are forthcoming. I have personally seen and examined the patient, performed the documentation and the assessment and plan as written. Number of minutes spent on the visit:20 Time with Patient: Greater than 30
[2023-01-02 08:27] LABS: Basophils % (A) 0 %; Eosinophils # (A) 0.1 k/uL (0-0.7); Eosinophils % (A) 2 %; HCT 26.7 % (34.0-46.0); HGB 8.6 gm/dL (11.4-16.0); Lymphocytes # (A) 0.9 k/uL (1.0-4.8); Lymphocytes % (A) 11 %; MCH 31.7 pg (25.0-35.0); MCHC 32.3 g/dL (31.0-37.0); MCV 98.4 fL (80.0-100.0); Mean Platelet Volume 7.8; Monocytes # (A) 0.5 k/uL (0-1.0); Monocytes % (A) 7 %; Neutrophils # (A) 6.4 k/uL (1.3-7.7); Neutrophils % (A) 79 %; Platelet Count 226 k/uL (150-450); RBC 2.71 m/uL (3.80-5.40); RDW 14.5 % (11.5-15.5); WBC 8.1 k/uL (3.8-10.6)
[2023-01-02] MEDS ORDERED: CLOPIDOGREL 75 MG TAB PO SCH (09:00)
[2023-01-02] MEDS ORDERED: FUROSEMIDE 10 MG/ML 4 ML VIAL IV SCH (09:00)
[2023-01-02] MEDS ORDERED: FAMOTIDINE 20 MG TAB PO SCH (09:00)
[2023-01-02] MEDS: FUROSEMIDE 10 MG/ML 4 ML VIAL IV SCH ×2 (09:11→19:44)
[2023-01-02] MEDS: THIAMINE 100 MG/ML 2 ML VIAL IVP SCH (09:11)
[2023-01-02] MEDS: NICOTINE 21MG/24HR PATCH TRANSDERM SCH (09:11)
[2023-01-02] MEDS: FAMOTIDINE 20 MG/2 ML VIAL IV SCH ×2 (09:11→19:44)
--- NOTE | 2023-01-02 11:27 | P.CRDCN ---
History of Present Illness History of present illness: HISTORY OF PRESENT ILLNESS: This is a 72-year-old female with a past medical history significant for peripheral vascular disease, hypertension, hyperlipidemia, valvular heart disease, carotid atherosclerosis, and nicotine dependence. Patient follows in the office with Dr. Krishna. We have been asked to see the patient in consultation for congestive heart failure and abnormal troponins. patient was recently hospitalized and underwent attempted balloon angioplasty of the left SFA with Dr. Krishna on 12/28/2022. Patient examined at the bedside. patient states she was doing well when she was initially discharged. She states however over the past couple days she has been feeling short of breath got progressively worse yesterday. She states she is somewhat short of breath during the day but it is worse at night when she is trying to lay down and go to sleep. She denies any chest pain or pressure. She reports having lower extremity edema which she states she usually does not have. the patient was found to have elevated troponins and was started on IV heparin. Vital signs are stable. * EKG reveals sinus mechanism with nonspecific ST-T wave changes. Similar to previous EKG although more pronounced * Chest xray left lung mass. Workup for neoplasm is recommended. Prominent vascular markings. Correlate for volume overload. * Laboratory data: W BC 8.1. Hemoglobin 8.6. Platelet count 226. Sodium 132. Potassium 4.2. BUN 8. Creatinine 0.57. Troponin 0.576. 0.564. 0.582. ProBNP 6490. * Current home cardiac medications include metoprolol titrate 50 twice a day, Plavix 75 mg daily, Lipitor 20 mg at night, and aspirin 81 mg daily * Most recent echocardiogram obtained in February 2020 revealing normal EF, moderate MR REVIEW OF SYSTEMS: At the time of my exam: CONSTITUTIONAL: Denies fever or chills. HEENT: Denies blurred vision, vision changes, or eye pain. Denies hemoptysis CARDIOVASCULAR: Denies chest pain. Denies orthopnea. Denies PND. Denies palpitations RESPIRATORY: + shortness of breath. GASTROINTESTINAL: Denies abdominal pain. Denies nausea or vomiting. HEMATOLOGIC: Denies bleeding disorders. GENITOURINARY: Denies any blood in urine. SKIN: Denies pruitis. Denies rash. PHYSICAL EXAM: VITAL SIGNS: Reviewed. GENERAL: Well-developed in no acute distress. HEENT: Head is normocephalic. Pupils are equal, round. Sclerae anicteric. Mucous membranes of the mouth are moist. Neck supple. No JVD or thyromegaly LUNGS: Respirations even and unlabored. Lungs essentially clear to auscultation bilaterally. HEART: Regular rate and rhythm. S1 and S2 heard.systolic murmur noted ABDOMEN: Soft. Nondistended. Nontender. EXTREMITIES: Normal range of motion. No clubbing or cyanosis. Peripheral pulses intact. 1+ bilateral lower extremity edema NEUROLOGIC: Awake and alert. Oriented x 3. ASSESSMENT: Shortness of breath Acute heart failure with preserved ejection fraction Left upper lobe lung mass Moderate mitral regurgitation Peripheral vascular disease with recent attempted angioplasty of left SFA Abnormal troponins, flat, no evidence of acute coronary syndrome Hypertension Hyperlipidemia Nicotine dependence PLAN: An acute coronary event has been ruled out Obtain 2-D echo to assess cardiac structure and function Discontinue IV heparin Resume home cardiac medications Begin IV Lasix 40 mg every 12 hours Daily weights, accurate I&O, and monitoring of kidney function Further recommendations pending patient's course Nurse practitioner note has been reviewed by physician. Signing provider agrees with the documented findings, assessment, and plan of care. Past Medical History Past Medical History: Cancer, COPD, CVA/TIA, GERD/Reflux, Hyperlipidemia, Hypertension, Osteoarthritis (OA), Thyroid Disorder, Vascular Disorder Additional Past Medical History / Comment(s): PAD IN BILATERAL LEGS/CAROTID DISEASE, MITRAL VALVE REGURGITATION, HX STROKE IN 2006, LEFT SIDE WAS AFFECTED, ABLE TO USE ARM AND LEG BUT USES CANE/WALKER FOR BALANCE, HX COLORECTAL CANCER IN 2006/SURGERY ONLY, "BILATERAL CAROTIDS 100% BLOCKED." HYPERTHYROID. History of Any Multi-Drug Resistant Organisms: None Reported Past Surgical History: Adenoidectomy, Appendectomy, Bowel Resection, Hysterectomy, Tonsillectomy, Tubal Ligation Additional Past Surgical History / Comment(s): BOWEL SURGERY FOR CANCER (NO CHEMO OR RADIATION), BILATERAL CATARACTS REMOVED, ATTEMPTED LEFT LEG ARTHRECTOMY. Past Anesthesia/Blood Transfusion Reactions: No Reported Reaction, Motion Sic kness Additional Past Anesthesia/Blood Transfusion Reaction / Comment(s): C LAUSTERPHOBIA. Past Psychological History: Anxiety Smoking Status: Current every day smoker Past Alcohol Use History: Daily Additional Past Alcohol Use History / Comment(s): STARTED SMOKING AT AGE 14, SMOKES 1 PPD. Drinks 3 beers per day. Past Drug Use History: None Reported - Past Family History Father Family Medical History: Diabetes Mellitus, Hypertension, Myocardial Infarction ([place]) Additional Family Medical History / Comment(s): SMOKER. Mother Family Medical History: Dementia Additional Family Medical History / Comment(s): BIPOLAR, DEPRESSION. Medications and Allergies Home Medications Medication Instructions Recorded Confirmed Type Temazepam [Restoril] 30 mg PO HS 06/17/14 01/01/23 History Atorvastatin [Lipitor] 20 mg PO HS tab 06/18/14 01/01/23 Rx Clopidogrel [Plavix] 75 mg PO DAILY 08/29/14 01/01/23 History Aspirin [Adult Low Dose Aspirin EC] 81 mg PO DAILY 10/07/20 01/01/23 History Famotidine 20 mg PO BID 10/07/20 01/01/23 History Acetaminophen [Tylenol Extra 1,000 mg PO BID PRN 01/06/21 01/01/23 History Strength] Levothyroxine Sodium [Synthroid] 75 mcg PO DAILY 09/05/22 01/01/23 History Metoprolol Tartrate [Lopressor] 50 mg PO BID #180 tab 12/30/22 01/01/23 Rx Midodrine [ProAmatine] 5 mg PO BID 01/01/23 01/01/23 History Allergies Allergy/AdvReac Type Severity Reaction Status Date / Time azithromycin Allergy Severe Verified 01/01/23 22:44 Dizziness codeine Allergy FLUSHING Verified 01/01/23 22:44 Penicillins AdvReac dizziness Verified 01/01/23 22:44 Physical Exam Vitals: Vital Signs Temp Pulse Pulse Resp BP BP Pulse Ox 01/02/23 04:00 87 22 167/79 98 01/02/23 02:00 89 20 01/02/23 00:00 97.3 F L 89 18 159/80 99 01/01/23 23:18 97.3 F L 89 18 99 01/01/23 22:50 78 18 97/57 98 01/01/23 20:00 78 18 106/61 96 01/01/23 17:32 81 24 97/73 96 01/01/23 16:40 98 F 81 18 97/67 97 Intake and Output 01/01/23 01/02/23 01/02/23 22:59 06:59 14:59 Output Total 800 Balance -800 Output: Urine 800 Other: Voiding Method External Catheter # Voids 0 Weight 69.853 kg 71.9 kg Results 01/02/23 07:28 01/01/23 16:50 Cardiac Enzymes 01/01/23 01/01/23 01/01/23 Range/Units 16:50 16:50 22:38 AST 28 (14-36) U/L Troponin I 0.576 H* 0.564 H* (0.000-0.034) ng/mL 01/02/23 Range/Units 02:18 AST (14-36) U/L Troponin I 0.582 H* (0.000-0.034) ng/mL Coagulation 01/02/23 Range/Units 07:28 APTT 69.9 H (22.0-30.0) sec CBC 01/01/23 01/02/23 Range/Units 16:50 07:28 WBC 6.9 8.1 (3.8-10.6) k/uL RBC 2.85 L 2.71 L (3.80-5.40) m/uL Hgb 9.2 L 8.6 L (11.4-16.0) gm/dL Hct 27.8 L 26.7 L (34.0-46.0) % Plt Count 248 226 (150-450) k/uL Comprehensive Metabolic Panel 01/01/23 Range/Units 16:50 Sodium 132 L (137-145) mmol/L Potassium 4.2 (3.5-5.1) mmol/L Chloride 99 (98-107) mmol/L Carbon Dioxide 27 (22-30) mmol/L BUN 8 (7-17) mg/dL Creatinine 0.57 (0.52-1.04) mg/dL Glucose 98 (74-99) mg/dL Calcium 9.5 (8.4-10.2) mg/dL AST 28 (14-36) U/L ALT 19 (4-34) U/L Alkaline Phosphatase 66 (38-126) U/L Total Protein 6.7 (6.3-8.2) g/dL Albumin 3.8 (3.5-5.0) g/dL Current Medications Generic Name Dose Route Start Last Admin Trade Name Freq PRN Reason Stop Dose Admin Alprazolam 0.5 mg 01/02/23 07:55 Alprazolam 0.5 Mg Tab PO QID PRN Anxiety Aspirin 81 mg 01/02/23 09:00 01/02/23 06:19 Aspirin 81 Mg PO 81 mg DAILY ELOISA Administration Famotidine 20 mg 01/02/23 09:00 Famotidine 20 Mg/2 Ml Vial IV Q12HR ELOISA Heparin Sodium (Porcine) 0 unit 01/02/23 06:04 Heparin Sodium 1,000 Un/Ml (10ml Vl) IV PER PROTOCOL PRN Low PTT Protocol Heparin Sodium/Sodium Chloride 250 mls @ 8.382 mls/hr 01/02/23 06:15 01/02/23 06:19 25,000 unit/ Sodium Chloride IV 12 units/kg/hr .Q24H ELOISA 8.382 mls/hr Administration Protocol 12 UNITS/KG/HR Metoprolol Tartrate 50 mg 01/02/23 09:00 01/02/23 06:18 Metoprolol Tartrate 50 Mg Tab PO 50 mg BID ELOISA Administration Nicotine 1 patch 01/02/23 09:00 Nicotine 21mg/24hr Patch TRANSDERM DAILY ELOISA Sodium Chloride 10 ml 01/02/23 09:00 Sodium Chloride 0.9% Flush 10 Ml Syringe IV BID ELOISA Thiamine HCl 100 mg 01/02/23 09:00 Thiamine 100 Mg/Ml 2 Ml Vial IVP DAILY ELOISA Intake and Output 01/01/23 01/02/23 01/02/23 22:59 06:59 14:59 Output Total 800 Balance -800 Output: Urine 800 Other: Voiding Method External Catheter # Voids 0 Weight 69.853 kg 71.9 kg 01/02/23 07:28 01/01/23 16:50
[2023-01-02 13:18] VITALS: BMI 25.5
[2023-01-02] MEDS ORDERED: HEPARIN SODIUM,PORCINE 5,000 UNIT/ML 1 ML VIAL SQ SCH (21:00)
[2023-01-02] MEDS ORDERED: ATORVASTATIN 20 MG TAB PO SCH (21:00)
[2023-01-03 07:55] LABS: Prothrombin Time 10.6 sec (9.0-12.0)
[2023-01-03 07:58] LABS: Basophils % (A) 0 %; Eosinophils # (A) 0.2 k/uL (0-0.7); Eosinophils % (A) 3 %; HCT 28.8 % (34.0-46.0); HGB 9.3 gm/dL (11.4-16.0); Lymphocytes # (A) 0.8 k/uL (1.0-4.8); Lymphocytes % (A) 11 %; MCH 32.2 pg (25.0-35.0); MCHC 32.2 g/dL (31.0-37.0); Macrocytosis Slight; Mean Platelet Volume 7.5; Monocytes # (A) 0.6 k/uL (0-1.0); Monocytes % (A) 8 %; Neutrophils # (A) 5.7 k/uL (1.3-7.7); Neutrophils % (A) 77 %; Platelet Count 281 k/uL (150-450); RBC 2.89 m/uL (3.80-5.40); RDW 14.5 % (11.5-15.5); WBC 7.5 k/uL (3.8-10.6)
[2023-01-03] MEDS: NICOTINE 21MG/24HR PATCH TRANSDERM SCH (08:00)
[2023-01-03] MEDS: ASPIRIN 81 MG PO SCH (08:01)
[2023-01-03] MEDS: FUROSEMIDE 10 MG/ML 4 ML VIAL IV SCH (08:01)
[2023-01-03] MEDS: METOPROLOL TARTRATE 50 MG TAB PO SCH (08:01)
[2023-01-03] MEDS: FAMOTIDINE 20 MG/2 ML VIAL IV SCH (08:01)
[2023-01-03] MEDS: THIAMINE 100 MG/ML 2 ML VIAL IVP SCH (08:01)
[2023-01-03] MEDS: HEPARIN SODIUM,PORCINE 5,000 UNIT/ML 1 ML VIAL SQ SCH ×2 (08:01→08:03)
[2023-01-03 08:03] LABS: African American GFR (CKD) >90 (>60 ml/min/1.73 sqM); Anion Gap 4 mmol/L; Blood Urea Nitrogen 13 mg/dL (7-17); Calcium 9.2 mg/dL (8.4-10.2); Carbon Dioxide 34 mmol/L (22-30); Chloride 95 mmol/L (98-107); Glucose 103 mg/dL (74-99); Non-African American GFR(CKD) 81 (>60 ml/min/1.73 sqM); Sodium 133 mmol/L (137-145)
[2023-01-03 08:14] VITALS: RESP 20; TEMP 97.7
--- NOTE | 2023-01-03 11:16 | CA ---
Transthoracic Echo Report Name: Michelle Sinclair Age: 72 Gender: F : 1950 Exam Date: 01/02/2023 14:08 Exam Location: [facility] Echo Ht (in): 66 Wt (lb): 158 Ordering Physician: Gillian Leon Attending/Referring Phys: [id number], Edward Senior Quality Control Inspector Kristopher Alexander Procedure CPT: Indications: LV function Cardiac Hx: Technical Quality: Fair Contrast 1: Total Dose (mL): Contrast 2: Total Dose (mL): MEASUREMENTS (Male / Female) Normal Values 2D ECHO LV Diastolic Diameter PLAX 4.8 cm 4.2 - 5.9 / 3.9 - 5.3 cm LV Systolic Diameter PLAX 3.8 cm IVS Diastolic Thickness 1.1 cm 0.6 - 1.0 / 0.6 - 0.9 cm LVPW Diastolic Thickness 1.1 cm 0.6 - 1.0 / 0.6 - 0.9 cm LV Relative Wall Thickness 0.5 RV Internal Dim ED PLAX 2.4 cm LVOT Diameter 2.2 cm Aortic Root Diameter 2.8 cm LA Systolic Diameter LX 3.4 cm 3.0 - 4.0 / 2.7 - 3.8 cm LV Diastolic Volume MOD BP 40.2 cm??? 67 - 155 / 56 - 104 cm??? LV Systolic Volume MOD BP 22.0 cm??? 22 - 58 / 19 - 49 cm??? LV Ejection Fraction MOD BP 45.3 % >= 55 % LV Cardiac Index MOD BP 752.8 cm???/min???m??? LV Diastolic Volume MOD 4C 38.1 cm??? LV Systolic Volume MOD 4C 22.8 cm??? LV Ejection Fraction MOD 4C 40.2 % LV Cardiac Index MOD 4C 634.1 cm???/min???m??? LV Diastolic Length 4C 5.5 cm LV Systolic Length 4C 5.5 cm LV Diastolic Volume MOD 2C 38.2 cm??? LV Systolic Volume MOD 2C 20.3 cm??? LV Ejection Fraction MOD 2C 47.0 % LV Cardiac Index MOD 2C 741.0 cm???/min???m??? LV Diastolic Length 2C 6.1 cm LV Systolic Length 2C 5.7 cm LA Volume 53.3 cm??? 18 - 58 / 22 - 52 cm??? Ascending Aorta Diameter 3.0 cm DOPPLER AV Peak Velocity 111.2 cm/s AV Peak Gradient 4.9 mmHg AV Mean Velocity 79.0 cm/s AV Mean Gradient 2.8 mmHg AV Velocity Time Integral 26.0 cm LVOT Peak Velocity 79.2 cm/s LVOT Peak Gradient 2.5 mmHg LVOT Velocity Time Integral 18.0 cm LVOT Stroke Volume 70.9 cm??? LVOT Stroke Volume Index 39.2 ml/m??? LVOT Cardiac Index 2930.9 cm???/min???m??? AV Area Cont Eq vti 2.7 cm??? AV Area Cont Eq pk 2.8 cm??? MV Peak Velocity 145.7 cm/s MV Peak Gradient 8.5 mmHg MV Mean Velocity 71.4 cm/s MV Mean Gradient 2.7 mmHg MV Velocity Time Integral 35.1 cm MR Peak Velocity 455.7 cm/s MR Peak Gradient 83.1 mmHg Mitral E Point Velocity 126.6 cm/s Mitral A Point Velocity 118.2 cm/s Mitral E to A Ratio 1.1 MV Deceleration Time 186.7 ms MV E' Velocity 3.6 cm/s Mitral E to MV E' Ratio 35.5 FINDINGS Left Ventricle Mildly increased septal wall thickness. Mildly increased posterior wall thickness. Left ventricular ejection fraction 50-55% Right Ventricle Normal right ventricular size. Right Atrium Normal right atrial size. Left Atrium Mildly increased left atrial volume. LA volume index= 29.5ml/m2 Mitral Valve Severe posterior mitral annulus calcification. Mild to moderate anterior leaflet calcification. Mild MR. Aortic Valve Trileaflet aortic valve. Mild AV calcification.no aortic valve stenosis or regurgitation. Tricuspid Valve Tricuspid valve not well visualized. No tricuspid regurgitation. Pulmonic Valve Pulmonic valve not well visualized. No pulmonic regurgitation. Pericardium Normal pericardium. Aorta Normal size aortic root and proximal ascending aorta. CONCLUSIONS Mildly increased left ventricular wall thickness Left ventricular ejection fraction 50-55% Moderate mitral annular calcification Mild mitral regurgitation No tricuspid regurgitation No pericardial effusion Previewed by: Dr. Abdelrahman Price DO (Electronically Signed) Final Date: 03 January 2023 11:15
[2023-01-03 11:19] VITALS: BP 114/58; PULSE 65
--- NOTE | 2023-01-03 12:50 | P.PN ---
Subjective HISTORY OF PRESENT ILLNESS: This is a 72-year-old female with a past medical history significant for peripheral vascular disease, hypertension, hyperlipidemia, valvular heart disease, carotid atherosclerosis, and nicotine dependence. Patient follows in the office with Dr. Krishna. We have been asked to see the patient in consultation for congestive heart failure and abnormal troponins. patient was recently hospitalized and underwent attempted balloon angioplasty of the left SFA with Dr. Krishna on 12/28/2022. Patient examined at the bedside. patient states she was doing well when she was initially discharged. She states however over the past couple days she has been feeling short of breath got progressively worse yester day. She states she is somewhat short of breath during the day but it is worse at night when she is trying to lay down and go to sleep. She denies any chest pain or pressure. She reports having lower extremity edema which she states she usually does not have. the patient was found to have elevated troponins and was started on IV heparin. Vital signs are stable. * EKG reveals sinus mechanism with nonspecific ST-T wave changes. Similar to previous EKG although more pronounced * Chest xray left lung mass. Workup for neoplasm is recommended. Prominent vascular markings. Correlate for volume overload. * Laboratory data: W BC 8.1. Hemoglobin 8.6. Platelet count 226. Sodium 132. Potassium 4.2. BUN 8. Creatinine 0.57. Troponin 0.576. 0.564. 0.582. ProBNP 6490. * Current home cardiac medications include metoprolol titrate 50 twice a day, Plavix 75 mg daily, Lipitor 20 mg at night, and aspirin 81 mg daily * Most recent echocardiogram obtained in February 2020 revealing normal EF, m kevin MR 01/03/2023 Patient examined this morning at the bedside. Patient denies chest pain or pressure. She denies shortness of breath. Echocardiogram completed revealing preserved LV systolic function. PHYSICAL EXAM: VITAL SIGNS: Reviewed. GENERAL: Well-developed in no acute distress. HEENT: Head is normocephalic. Pupils are equal, round. Sclerae anicteric. Mucous membranes of the mouth are moist. Neck supple. No JVD or thyromegaly LUNGS: Respirations even and unlabored. Lungs essentially clear to auscultation bilaterally. HEART: Regular rate and rhythm. S1 and S2 heard.systolic murmur noted ABDOMEN: Soft. Nondistended. Nontender. EXTREMITIES: Normal range of motion. No clubbing or cyanosis. Peripheral pulses intact. 1+ bilateral lower extremity edema NEUROLOGIC: Awake and alert. Oriented x 3. ASSESSMENT: Shortness of breath Acute heart failure with preserved ejection fraction Left upper lobe lung mass Moderate mitral regurgitation Peripheral vascular disease with recent attempted angioplasty of left SFA Abnormal troponins, flat, no evidence of acute coronary syndrome Hypertension Hyperlipidemia Nicotine dependence PLAN: Discontinue IV Lasix Begin oral Lasix 40 mg daily Continue additional cardiac medications Patient is stable for discharge home today from a cardiac standpoint Nurse practitioner note has been reviewed by physician. Signing provider agrees with the documented findings, assessment, and plan of care. Objective - Vital Signs Vital signs: Vital Signs Temp 97.7 F 01/03/23 11:17 Pulse 65 01/03/23 11:17 Resp 20 01/03/23 11:17 BP 114/58 01/03/23 11:17 Pulse Ox 98 01/03/23 11:17 FiO2 Intake & Output 01/02/23 01/03/23 01/03/23 18:59 06:59 18:59 Intake Total 540 Output Total 1400 500 Balance -1400 40 Weight 71.9 kg Intake: Oral 540 Output: Urine 1400 500 Other: Voiding Method External Catheter External Catheter External Catheter # Voids 1 - Labs CBC & Chem 7: 01/03/23 07:07 01/03/23 07:07 Labs: Abnormal Lab Results - Last 24 Hours (Table) 01/03/23 01/03/23 Range/Units 07:07 07:07 RBC 2.89 L (3.80-5.40) m/uL Hgb 9.3 L (11.4-16.0) gm/dL Hct 28.8 L (34.0-46.0) % Lymphocytes # 0.8 L (1.0-4.8) k/uL Sodium 133 L (137-145) mmol/L Chloride 95 L (98-107) mmol/L Carbon Dioxide 34 H (22-30) mmol/L Glucose 103 H (74-99) mg/dL
--- NOTE | 2023-01-03 13:16 | CDI ---
Documentation Clarification Form Date: 01/03/2023 12:43:26 PM From: Ariadna Bartlett RN CCDS Phone: [phone] Admit Date: 01/01/2023 10:15:00 PM Patient Name: Michelle Sinclair Visit Number: [id number] Discharge Date: ATTENTION: The Clinical Documentation Specialists (CDI) and [facility] Coding Staff appreciate your assistance in clarifying documentation. Please respond to the clarification below the line at the bottom and electronically sign. The CDI & [facility] Coding staff will review the response and follow-up if needed. Please note: Queries are made part of the Legal Health Record. If you have any questions, please contact the author of this message via ITS. Dr. Arpit Campos Acute Hypoxemic Respiratory is documented, Pulmonary consult, which may lack sufficient clinical evidence/support in the medical record. Additional clarification is requested. History/Risk Factors: 72-year-old female presents to the ED with shortness of breath over the past two days getting progressively worse. Medical History: Smokes one pack per day stopped five days ago, COPD, HTN and Colorectal cancer. 01/02, ED note Clinical Indicators: 01/02, Pulmonary consult Lung exam: Equal air entry with scattered bibasilar inspiratory crackles, and mild expiratory wheezes throughout. On 2L/nasal cannula. NO conversational dyspnea or accessory muscle use. 01/01 16:40 RR 18, SpO2 97% Room Air 01/01 20:00 RR 18, SpO2 96% Room Air 01/01 23:18 RR 18, SpO2 99% 2L nasal cannula 01/02 11:39 RR 16, SpO2 100% 2L nasal cannula 01/03 04:00 RR 16, SpO2 98% 2L nasal cannula 01/03 07:51 RR 20, SpO2 90% room air 01/03 09:36 SpO2 98% room air 01/03 11:17 RR 20, SpO2, 98% room air Treatment: 2L nasal cannula and room air Please clarify if Acute Hypoxemic Respiratory Failure is a valid diagnosis? [ ] Yes, Acute Hypoxemic Respiratory Failure is present as evidence by (additional clinical support): [ X ] No, Acute Hypoxemic Respiratory Failure is ruled out [ ] Other (please specify diagnosis) [ ] Unable to determine (Template Last Revised: June 2020) MTDD
--- NOTE | 2023-01-03 14:02 | P.PN ---
Subjective Progress Note Date: 01/03/23 Principal diagnosis: Acute diastolic congestive heart failure and left lung mass highly suspicious for bronchogenic carcinoma I am seeing this patient in consultation today 01/02/2023 for a left upper lobe lung mass measuring up to 4.7 cm. Patient is actually admitted for CHF exacerbation and possible NSTEMI. Patient is a 72-year-old female with past medical history significant for peripheral vascular disease with previous stents to bilateral iliac arteries, previous CVA/TIA, carotid artery stenosis, hyperlipidemia, hypertension, hypothyroidism, colorectal cancer, and chronic ongoing nicotine dependence. Her primary care provider is Dr. Veliz. Patient was actually seen back in December, in the hospital and was found to have a 2 x 4 x 3 cm spiculated mass within the left upper lobe on chest CTA. There was recommendation for follow-up PET scan and biopsy. The patient did not follow-up outpatient. She states that even if it was cancer, she would not want treatment. She does not see the need to pursue biopsy. Patient was recently hospitalized back on December 28 for attempted angioplasty of the left SFA which was occluded. Postoperatively, there was concerns for large left-sided retroperitoneal/pelvic hematoma/bleed, and the patient was discharged home 3 days ago. Since then, she's been having significant shortness of breath. She states that the shortness breath is worse when laying flat. She also reports increased lower extremity swelling. Denies any chest pain, heart palpitations. Denies any infectious symptoms such as fever, chills, myalgias, cough, hemoptysis. She denies any history of COPD or asthma. Up until 5 days ago, she continued to smoke 1 pack per day. Does not utilize any inhalers at home. Patient is currently sitting up in bed, on 2 L/m nasal cannula, in no acute distress. Chest x-ray on arrival showed pulmonary vascular congestion, stable cardiac silhouette, and a 4.7 cm left upper lobe pulmonary mass. Concerning for possible malignancy. NT proBNP was elevated at 6490. Troponins are elevated but flat. ECG shows normal sinus rhythm with T-wave inversion and ST depression in the inferior and lateral leads. Patient was started on a heparin infusion per protocol. Most recent CBC shows a WBC count of 6.9, hemoglobin 9.2, hematocrit 27.8, platelets 248. Doesn't look like baseline coagulation profile was drawn. BMP shows sodium 132, potassium 4.2, chloride 99, serum bicarb 27, BUN 8, creatinine 0.57, glucose 98. Patient appears hemodynamically stable at this time. She is being monitored on the cardiac stepdown unit. Patient was reevaluated today on 01/03/2023, patient is doing great, relatively asymptomatic she is now on room air, O2 sats is 98%, apparently the patient never had O2 saturation below 90% even on room air. Hence the patient did not have acute hypoxic respiratory failure but she did have acute diastolic congestive heart failure with left lung mass. Clinically the patient is feeling better hardly any pulmonary symptoms today, no cough no wheezing no shortness of breath, patient is being considered for discharge planning however she needs to BE cleared by cardiology pulmonary-wong the patient needs follow-up with Dr. Crenshaw if she decides to have something done regarding her lung mass which is highly suspicious for bronchogenic carcinoma/lung cancer and the patient is aware labs today were reviewed WBC of 7.5 hemoglobin 9.3 electrolytes are normal renal profile is normal. Objective - Vital Signs Vital signs: Vital Signs Temp 97.7 F 01/03/23 11:17 Pulse 65 01/03/23 11:17 Resp 20 01/03/23 11:17 BP 114/58 01/03/23 11:17 Pulse Ox 98 01/03/23 11:17 FiO2 Intake & Output 01/02/23 01/03/23 01/03/23 18:59 06:59 18:59 Intake Total 540 Output Total 1400 500 Balance -1400 40 Weight 71.9 kg Intake: Oral 540 Output: Urine 1400 500 Other: Voiding Method External Catheter External Catheter External Catheter # Voids 1 - Exam Physical Exam: Revealed 72-year-old female in no distress on room air HEENT:[Neck is supple.] [No neck masses.] [No thyromegaly.] [No JVD.] Chest: [Clear throughout, no crackles, no rhonchi, no wheezes.] Cardiac Exam: [Normal S1 and S2, no S3 gallop, 2/6 systolic murmur thought the precordium Abdomen: [Soft, nontender, no megaly, no rebound, no guarding, normal bowel sounds.] Extremities: [No clubbing, no edema, no cyanosis.] Neurological Exam: [No focal neurologic deficit.] Alert oriented 3 Psychiatric: Normal mood affect and normal mental status examination. Skin: No rashes Musculoskeletal: No deformities and no limitation in range of motion - Labs CBC & Chem 7: 01/03/23 07:07 01/03/23 07:07 Labs: Abnormal Lab Results - Last 24 Hours (Table) 01/03/23 01/03/23 Range/Units 07:07 07:07 RBC 2.89 L (3.80-5.40) m/uL Hgb 9.3 L (11.4-16.0) gm/dL Hct 28.8 L (34.0-46.0) % Lymphocytes # 0.8 L (1.0-4.8) k/uL Sodium 133 L (137-145) mmol/L Chloride 95 L (98-107) mmol/L Carbon Dioxide 34 H (22-30) mmol/L Glucose 103 H (74-99) mg/dL Assessment and Plan Assessment: Impression: Acute congestive heart failure with preserved ejection fraction, improved and responded well to diuretics Left upper lobe mass highly consistent with bronchogenic carcinoma needs further workup, however the patient is reluctant to have any workup Moderate mitral regurgitation Peripheral vessel occlusive disease Benign essential hypertension Possible acute non-ST elevation myocardial infarction Dyslipidemia Nicotine dependence Patient did not have acute hypoxic respiratory failure on presentation. She never had a low O2 saturation below 90% on room air based on the documentations in the chart. Recommendation: Agree with oral Lasix Agree with present cardiac medications Consider discharge planning if the patient is cleared by cardiology FOR her lung mass in the patient changes her mind she is to call the office and make appointment with Dr. THAKKAR Patient is very well aware that the lung mass is highly suspicious for lung cancer Time with Patient: Less than 30
[2023-01-03] MEDS ORDERED: TEMAZEPAM 15 MG CAP PO SCH (21:00)
--- NOTE | 2023-01-04 06:17 | P.DS ---
Providers Date of admission: 01/01/23 22:15 Attending physician: Jose Nieto Consults: 01/01/23 22:12 Consult Physician Routine Consulting Provider: Leandro Krsihna Consult Reason/Comments: CHF exacrebation/NSTEMI Do you want consulting provider notified?: Yes 01/02/23 06:03 Consult Physician Routine Consulting Provider: Arpit Campos Consult Reason/Comments: lung mass, ? neoplasm Do you want consulting provider notified?: Yes, Notify in am Primary care physician: [facility] Course: Diagnoses: Pulmonary vascular congestion is suspected secondary to acute CHF Elevated troponin most likely secondary to acute CHF Left lung mass suspicious for neoplasm, Follow-up with pulmonary as an outpatient. Patient is aware Peripheral vascular disease including bilateral carotid stenosis and previous history of bilateral iliac angioplasty. Unsuccessful left SFA angioplasty on 12/28 Recent retroperitoneal hemorrhage, one week prior to hospitalization secondary to unsuccessful angioplasty of the lower extremity subacute blood loss anemia secondary to above Nicotine dependence Diabetes mellitus Hypertension Hyperlipidemia History of osteoarthritis Hypothyroidism Hospital course: This is a pleasant 72 years old female with past medical history of COPD, CVA/TIA, GERD/Reflux, Hyperlipidemia, Hypertension, Osteoarthritis hypothyroidism, mitral regurgitation, balance problem requiring walker, c olorectal cancer in 2006 status post surgical treatment, nicotine dependence Patient was recently discharged from the hospital/this facility. On 12/28 she underwent unsuccessful left lower extremity angiogram of the left common femoral artery angiogram. Procedure complicated by hypotension. And abdominal discomfort, CT of the abdomen showed retroperitoneal hemorrhage Patient was discharged on dual antiplatelet therapy on 12/30. Post discharge patient developed progressive dyspnea, orthopnea. Patient was admitted with acute CHF exacerbation and she was evaluated by cardiology service, patient received IV Lasix and she showed interval improvement in her breathing significantly improved. Patient also has mildly elevated troponin with no significant chest pain or discomfort. Most likely sec ondary to CHF. Patient today was breathing at room air, not dyspneic denies chest pain denies any other new complaints and she was eager to be discharged home. She does not think she needs to stay in the hospital because she does not want to pay her co-pay with insurance she states from last admission. Patient was eager to go home today. Patient was cleared for discharge by cardiology and pulmonary surface. Patient will be discharged on oral Lasix 40 mg once daily recommended by senior mechanical development engineer, patient informed and agrees. Also patient with left lung mass suspicious for neoplasm patient is a cigarette smoker. Patient developed by pulmonary service and recommended outpatient workup like PET scan and others. Patient is aware about the possibility of neoplasms and her appointment with Dr. Sandoval on 01/14. Also the patient asked me to talk to her daughter Celsa which she already told by the patient about her lung mass. Also I told him about the possibility of cancer with the patient and the daughter verbalized understanding and acceptance and they are aware of her appointment with Dr. Sandoval as above. Problems and management plan were discussed with the patient and he verbalized understanding and acceptance Patient was found stable and can be discharged home in guarded prognosis however he needs follow-up as an outpatient. Patient was instructed to follow up with PCP Dr. Veliz with the appointments made for her on 01/10 within one week and patient agrees Also patient informed about her appointment with Dr. Diego on 01/07 and she agrees. Patient informed about her appointment with Dr. Sandoval in 01/14 she said she will follow-up. Also I told the daughter Ms. Steen about her mother appointments and also she verbalized understanding and acceptance with the Physical exam Gen: patient is a AAOx3, no distress CVS: S1-S2, RRR, no murmur Lungs: B/L CTA, no wheezing Abdomen: soft, no distention, no tenderness, positive bowel sounds Extremity: no leg edema or induration Time spent more than 35 minutes Patient Condition at Discharge: Fair Plan - Discharge Summary Discharge Rx Participant: No New Discharge Prescriptions: New Furosemide [Lasix] 40 mg PO DAILY #30 tab Thiamine [Vitamin B-1] 100 mg PO DAILY #30 tablet Nicotine 21Mg/24Hr Patch [Habitrol] 1 patch TRANSDERM DAILY #3 patch Continue Atorvastatin [Lipitor] 20 mg PO HS tab Clopidogrel [Plavix] 75 mg PO DAILY Famotidine 20 mg PO BID Aspirin [Adult Low Dose Aspirin EC] 81 mg PO DAILY Acetaminophen [Tylenol Extra Strength] 1,000 mg PO BID PRN PRN Reason: Pain Levothyroxine Sodium [Synthroid] 75 mcg PO DAILY Metoprolol Tartrate [Lopressor] 50 mg PO BID #180 tab Changed Temazepam [Restoril] 15 mg PO HS #0 No Action Midodrine [ProAmatine] 5 mg PO BID Discharge Medication List Atorvastatin [Lipitor] 20 mg PO HS tab 06/18/14 [Rx] Clopidogrel [Plavix] 75 mg PO DAILY 08/29/14 [History] Aspirin [Adult Low Dose Aspirin EC] 81 mg PO DAILY 10/07/20 [History] Famotidine 20 mg PO BID 10/07/20 [History] Acetaminophen [Tylenol Extra Strength] 1,000 mg PO BID PRN 01/06/21 [History] Levothyroxine Sodium [Synthroid] 75 mcg PO DAILY 09/05/22 [History] Metoprolol Tartrate [Lopressor] 50 mg PO BID #180 tab 12/30/22 [Rx] Midodrine [ProAmatine] 5 mg PO BID 01/01/23 [History] Furosemide [Lasix] 40 mg PO DAILY #30 tab 01/03/23 [Rx] Nicotine 21Mg/24Hr Patch [Habitrol] 1 patch TRANSDERM DAILY #3 patch 01/03/23 [Rx] Temazepam [Restoril] 15 mg PO HS #0 01/03/23 [Rx] Thiamine [Vitamin B-1] 100 mg PO DAILY #30 tablet 01/03/23 [Rx] Follow up Appointment(s)/Referral(s): Arpit Campos MD [STAFF PHYSICIAN] - 01/14/23 2:00 pm (For left lung mass, possible neoplasm.) Elizabeth Veliz MD [Primary Care Provider] - 01/10/23 1:45 pm Berhane Diego MD [STAFF PHYSICIAN] - 01/07/23 10:45 am (With Dr. Krishna) Patient Instructions/Handouts: Heart Failure (DC) Activity/Diet/Wound Care/Special Instructions: heart healthy diet activity is restricted till you see your doctor Discharge/Stand Alone Forms: Who Do I Call?, Community Resources, Personal [employer] Machine Setter Discharge Disposition: HOME WITH HOME HEALTH SERVICES
[2023-01-04] MEDS ORDERED: FUROSEMIDE 40 MG TAB PO SCH (09:00)
--- NOTE | 2023-01-07 14:38 | CDI ---
Documentation Clarification Form Date: 01/07/2023 02:02:30 PM From: Cortney Castillo RN, CCDS Email: [email or web address] Admit Date: 01/01/2023 10:15:00 PM Patient Name: Michelle Sinclair Visit Number: [id number] Discharge Date: 01/03/2023 02:53:00 PM ATTENTION: The Clinical Documentation Specialists (CDI) and [facility] Coding Staff appreciate your assistance in clarifying documentation. Please respond to the clarification below the line at the bottom and electronically sign. The CDI & [facility] Coding staff will review the response and follow-up if needed. Please note: Queries are made part of the Legal Health Record. If you have any questions, please contact the author of this message via ITS. Dr. Dougherty Sheet Your patient had elevated troponin levels. Please clarify if there is an additional diagnosis and/or clinical significance related to this value. Patient history/risk factors: PVD, HTN, HLD, valve disease, CAD, s/p unsuccessful left lower extremity angiogram on 12/28. Presented with shortness of breath, found to have elevated troponins. The patient was admitted with acute CHF and elevated troponin most likely secondary to acute CHF. Clinical indicators: 01/01-01/02 Troponins: 0.576-0.564-0.582 01/01 BNP: 6490 01/02 H&P: "Elevated troponin suspicious for NSTEMI." 01/02 Cardiology: "Acute heart failure with preserved ejection fraction. Abnormal troponins, flat, no evidence of acute coronary syndrome." Discharge summary: "Pulmonary vascular congestion is suspected secondary to acute CHF. Elevated troponin most likely secondary to acute CHF." Treatment: IV Lasix 40mg Q12H 01/02-01/03; Heparin 4000 units IVP x1 on 01/02 followed by drip on 01/02 then discontinued; Lopressor 50mg po BID 01/02-01/03 Is there an additional diagnosis and/or clinical significance related to the above lab result/information: [ ] Type 2 ID secondary to acute CHF [ ] No additional diagnosis/Not clinically significant [ ] Other, please specify [ ] Unable to determine Type 2 ID secondary to acute CHF MTDD
== END 2023-01-03 14:53 | disposition home or self-care (01) | DRG 280 ==
LOC: EC 15:27 → 3SCARD 22:15
PROVIDERS: ADMIT Hospitalist; ATTEND Hospitalist
DX: I11.0 Hypertensive heart disease with heart failure (principal); I50.31 Acute diastolic (congestive) heart failure; I21.A1 Myocardial infarction type 2; D50.0 Iron deficiency anemia secondary to blood loss (chronic); R58 Hemorrhage, not elsewhere classified; F17.210 Nicotine dependence, cigarettes, uncomplicated; I44.7 Left bundle-branch block, unspecified; I34.0 Nonrheumatic mitral (valve) insufficiency; E11.51 Type 2 diabetes mellitus with diabetic peripheral angiopathy without gangrene; E78.5 Hyperlipidemia, unspecified; E03.9 Hypothyroidism, unspecified; J44.9 Chronic obstructive pulmonary disease, unspecified; Z79.890 Hormone replacement therapy; F41.9 Anxiety disorder, unspecified; I65.23 Occlusion and stenosis of bilateral carotid arteries; Z79.02 Long term (current) use of antithrombotics/antiplatelets; Z79.82 Long term (current) use of aspirin; Z79.899 Other long term (current) drug therapy; Z86.73 Personal history of transient ischemic attack (TIA), and cerebral infarction without residual deficits; Z92.21 Personal history of antineoplastic chemotherapy; Z85.048 Personal history of other malignant neoplasm of rectum, rectosigmoid junction, and anus; Z88.1 Allergy status to other antibiotic agents; Z88.0 Allergy status to penicillin; Z88.5 Allergy status to narcotic agent
CPT/HCPCS: 36415; 71046; 80048; 80053; 83605; 83880; 84484; 85025; 85610; 85730; 93005; 93306; 99291

== ENCOUNTER → 2023-12-05 | Outpatient (CLI) | payer MEDICARE ==
--- NOTE | 2023-12-26 09:18 | PE ---
Patient: Michelle Sinclair Ordering Physician: Unknown, Unknown ID: [id number] Phone, Pager: Phone: N/A Tayler er: N/A : 1950 Age/Gender: 73Y, F Primary Location: N/A Procedure: PET CT fusion skull to thi Study Date: 12/05/2023 10:08:00 AM EXAMINATION TYPE: PET CT fusion skull to thigh DATE OF EXAM: 12/08/2023 CLINICAL INDICATION: Lung cancer. TECHNIQUE: Following the intravenous administration of 9.93 mCi of F-18 FDG, whole body images are performed from the skull base to the midthigh. Images are reviewed on the computer in the coronal, a xial, and sagittal planes. Reconstructed rotating images are created on independent workstation and reviewed on the computer. A non-contrast CT is performed in conjunction with the PET scan. Glucose level 113 mg/dL CT DLP: 573 mGycm, Automated exposure control for dose reduction was used. COMPARISON: CT 12/30/2022, PET/CT None, MRI: None FINDINGS: Mediastinal SUV mean is 2.6. Hepatic parenchyma SUV mean is 3.2 . SKULL BASE AND NECK: No FDG avid lymph nodes bilaterally. Left measuring 11 mm Max SUV 13.3. On the right max SUV 6.3, measurements are difficult without IV co ntrast. CHEST, MEDIASTINUM, AND HILAR REGION: Abnormal uptake throughout the including the mediastinum and lungs examples include: * Precarinal soft tissue max SUV 11.8 measuring at least 16 mm. * Right pulmonary hilum max SUV 14.2. Measurements are difficult without IV contrast. * Subcarinal max SUV 9.9 Measurements are difficult without IV contrast. * Soft tissue extending along the pleura on the left aspect of the mediastinum multiple lymph nodes measuring up to 12 mm and max SUV 13.2 anteriorly. * Left pulmonary hilum max SUV 14.1. Left upper lobe mass measuring 3.4 x 3.4 cm Max SUV 16.4. * Airspace opacities within the right lung with more focal uptake measuring 10 and 14 mm Max SUV 5.2 and 4.6 respectively. * Periaortic lymph node max SUV 5.2 measuring 6 mm. ABDOMEN AND PELVIS: No suspicious radiotracer activity. MUSCULOSKELETAL STRUCTURES: No suspicious radiotracer activity. OTHER CT: Atherosclerosis of the arterial vasculature including the carotid bifurcations and coronary arteries. Mitral valve annular calcifications. Renal sinus calcifications likely vascular in etiolog y. Bilateral iliac artery stent grafts are present. Scattered colonic diverticula. IMPRESSION: Left upper lung mass with metastatic disease to the mediastinum and lower neck bilaterally. Possible right lung metastatic disease also present.
== END | disposition home or self-care (01) ==
LOC: RADPETMAIN 09:00
PROVIDERS: ATTEND Internal Medicine Critical Care Medicine
DX: C78.01 Secondary malignant neoplasm of right lung (principal)
CPT/HCPCS: 78815; A9552

== ENCOUNTER 2024-01-14 11:06 | Day surgery (SDC) | payer MEDICARE ==
[2024-01-14 11:53] LABS: African American GFR (CKD) >90 (>60 ml/min/1.73 sqM); Blood Urea Nitrogen 14 mg/dL (7-17); Non-African American GFR(CKD) 89 (>60 ml/min/1.73 sqM)
[2024-01-14 13:07] VITALS: PULSE 87; RESP 22; TEMP 98
--- NOTE | 2024-01-14 13:17 | CT ---
EXAMINATION TYPE: CT brain w con CT DLP: 1131.90 mGycm, Automated exposure control for dose reduction was used. DATE OF EXAM: 01/14/2024 12:47 PM COMPARISON: CT brain 06/17/2014. CLINICAL INDICATION:Female, 73 years old with history of C34.12 BRAIN W; PHH, Dizziness, prior hx of stroke TECHNIQUE: Axial CT images of the brain were obtained after the uneventful administration of 100 mL I sovue [address] dose reduction strategies were utilized during this examination. Coronal and sagittal reformats reviewed. FINDINGS: Extra-axial spaces: No abnormal extra-axial fluid collections. Ventricular system: Within normal limits Cerebral parenchyma: No acute intraparenchymal hemorrhage or mass effect. Regions of encephalomalacia demonstrated. These involve the left frontoparietal near the vertex and the right frontoparietal lob es most prominent along the right frontal lobe anteriorly. The remaining alan-white junction is well differentiated. Scattered hypoattenuating areas are seen within the periventricular white matter. No abnormal enhancement is seen after the administration of intravenous contrast. Cerebellum: Unremarkable. Mass effect: No evidence of midline shift. Intracranial vasculature: Atherosclerotic calcifications of the intracranial vessels. Hypoplastic prasanna earance of the visualized A1 segment of the right ARIA. Soft tissues: Normal. Calvarium/osseous structures: No depressed skull fracture. Benign hyperostosis frontalis noted. Paranasal sinuses and mastoid air cells: Clear. Visualized orbits: Bilateral aphakia IMPRESSION: 1. No acute intracranial process and no evidence to suggest intracranial mass. 2. Encephalomalacia involving the bilateral frontoparietal lobes from prior reported CVA. 3. Nonspecific white matter changes, likely secondary to chronic small vessel ischemic disease. [facility], , 01/14/2024 1:14 PM
[2024-01-14 14:05] VITALS: BP 168/86
--- NOTE | 2024-01-14 16:52 | US ---
EXAMINATION TYPE: US discontinued FNA panel DATE OF EXAM: 01/14/2024 1:51 PM CLINICAL INDICATION:Female, 73 years old with history of C34.12 LUNG CANCER; , COMPARISON: 12/05/2023 ATTENDING: Dr. Bhaskar San PROCEDURE: Informed consent was obtained. The risks and benefits of the procedure were discussed with the patien t. This area was interrogated by grayscale and color Doppler imaging there are multiple large vascula r structures around these lymph nodes. This in combination with patient's clavicle made attempt of th e biopsied to be unsafe and the procedure was canceled. Patient was agreeable to cancellation. IMPRESSION: Canceled ultrasound guided biopsy secondary to multiple large vascular structures adjacent to the lym ph nodes. [facility], , 01/14/2024 4:50 PM
== END 2024-01-14 14:04 | disposition home or self-care (01) ==
LOC: RADPROMAIN 11:06
PROVIDERS: ATTEND Internal Medicine Hematology & Oncology
DX: C34.12 Malignant neoplasm of upper lobe, left bronchus or lung
CPT/HCPCS: 36415; 70460; 76536; 82565; 84520

== ENCOUNTER → 2024-02-14 | Outpatient (CLI) | payer MEDICARE ==
[2024-02-14 14:05] LABS: African American GFR (CKD) >90 (>60 ml/min/1.73 sqM); Blood Urea Nitrogen 12 mg/dL (7-17); Non-African American GFR(CKD) 87 (>60 ml/min/1.73 sqM)
--- NOTE | 2024-02-14 14:57 | CT ---
EXAMINATION TYPE: CT chest w con CT DLP: 423.3 mGycm, Automated exposure control for dose reduction was used. DATE OF EXAM: 02/14/2024 2:35 PM COMPARISON: PET CT 12/26/2023, CTA chest 01/06/2021 CLINICAL INDICATION:Female, 73 years old with history of C34.12 LUNG CANCER; PHH, lung ca f/u TECHNIQUE: Multiple axial images were obtained through the chest following the administration of 100 cc of Isovue 300. . Coronal and sagittal reformats reviewed. FINDINGS: LUNGS/ PLEURA: Small left pleural effusion. No pneumothorax. Increased size of heterogenous enhancin g left upper lobe anterior pulmonary mass measuring 6.7 x 5.4 cm (series 3, image 14). Demonstrated F DG activity in prior PET/CT. Previously measured 3.5 x 3.5 cm. Development of posterior right upper l obe 3.8 x 2.9 cm heterogenous enhancing mass (series 3, image 15). Patchy atelectasis within the depe ndent portion of the right lower lobe. AIRWAY: Patent and unremarkable.. HEART: The heart is mildly increased in size.. No pericardial effusion. Severe coronary artery calcif ications. Mitral annulus calcifications. MEDIASTINUM: The fine heterogenous enhancing soft tissue identified within the prevascular space exte nding into the AP window and surrounding the trachea and extends into the right hilar region. This is consistent with conglomerate adenopathy and was FDG avid on prior PET/CT. Overall relatively similar to prior exam. VASCULATURE: No aortic aneurysm. Moderate atherosclerotic calcification of the aorta and its branche s. At least moderate stenosis involving the proximal left subclavian artery. Poor visualization of th e bilateral common carotid arteries just after their origin. MUSCULOSKELETAL: No acute osseous abnormalities. No aggressive osseous lesion. Multilevel degenerativ e disc disease. Prominent Schmorl's node involving the superior endplate of the T12 vertebral body. I ncreased thoracic kyphosis. SOFT TISSUES/LYMPH NODES: Unremarkable. LOWER NECK: Prominent left supraclavicular lymph nodes which are FDG avid on prior PET/CT. Overall vi sualized portion is similar to prior exam. UPPER ABDOMEN: Stable left superior renal pole exophytic 4.5 cm cyst. A few stable nonenlarged miguel lonic lymph nodes identified. Small hiatal hernia. IMPRESSION: 1. Progression of disease with increasing size of left upper lobe pulmonary mass measuring up to 6.7 cm. Additional new posterior right upper lobe 3.8 cm mass most consistent with metastasis. Similar a ppearance of confluent metastatic adenopathy within the mediastinum extending into the right hilum. S imilar left supraclavicular metastatic prominent lymph nodes. 2. Increased small left pleural effusion. 3. Moderate stenosis involving the proximal left subclavian artery with poor visualization of the mil ateral common carotid arteries after the origins. May be due to contrast phase. Consider further eval uation with carotid ultrasound. [facility], , 02/14/2024 2:55 PM
== END | disposition home or self-care (01) ==
LOC: RADCTMAIN 13:19
PROVIDERS: ATTEND Internal Medicine Hematology & Oncology
DX: C34.12 Malignant neoplasm of upper lobe, left bronchus or lung (principal); J90 Pleural effusion, not elsewhere classified; J98.4 Other disorders of lung; R91.8 Other nonspecific abnormal finding of lung field
CPT/HCPCS: 82565; 84520; 71260; 36415; Q9967

== ENCOUNTER 2024-04-10 06:53 | Inpatient (IN) | payer MEDICARE ==
--- NOTE | 2024-04-10 07:24 | ED ---
General Adult HPI - General Chief complaint: Shortness of Breath Stated complaint: SAIGE Time Seen by Provider: 04/10/24 07:02 Source: patient, EMS, RN notes reviewed Mode of arrival: EMS Limitations: no limitations - History of Present Illness Initial comments: Patient is a 74-year-old female presenting to the emergency department with concerns for difficulty breathing. Onset of symptoms was around 4 this morning. Patient does have occasional cough. No fever. Symptoms are similar to previous COPD. Patient also has known untreated lung cancer. Patient is on Eliquis. No chest pain. No calf pain. - Related Data Home Medications Medication Instructions Recorded Confirmed Aspirin [Adult Low Dose Aspirin EC] 81 mg PO DAILY 10/07/20 01/14/24 Famotidine 20 mg PO BID 10/07/20 01/14/24 Levothyroxine Sodium [Synthroid] 75 mcg PO DAILY 09/05/22 01/14/24 Albuterol Inhaler [Ventolin Hfa 2 puff INHALATION QID 01/09/24 01/14/24 Inhaler] Apixaban [Eliquis] 2.5 mg PO BID 01/09/24 01/14/24 Cholecalciferol [Vitamin D3 (125 125 mcg PO DAILY 01/09/24 01/14/24 Mcg = 5000 Iu)] Fluticasone/Vilanterol [Breo 1 inhalation INHALATION DAILY 01/09/24 01/14/24 Ellipta 200-25 Mcg Inhaler] Temazepam [Restoril] 30 mg PO HS 01/09/24 01/14/24 Previous Rx's Medication Instructions Recorded Atorvastatin [Lipitor] 20 mg PO HS tab 06/18/14 Metoprolol Tartrate [Lopressor] 50 mg PO BID #180 tab 12/30/22 Furosemide [Lasix] 40 mg PO DAILY #30 tab 01/03/23 Nicotine 21Mg/24Hr Patch [Habitrol] 1 patch TRANSDERM DAILY #3 patch 01/03/23 Allergies Allergy/AdvReac Type Severity Reaction Status Date / Time azithromycin Allergy Severe Verified 04/10/24 07:00 Dizziness codeine Allergy FLUSHING Verified 04/10/24 07:00 Penicillins AdvReac dizziness Verified 04/10/24 07:00 Review of Systems ROS Statement: Those systems with pertinent positive or pertinent negative responses have been documented in the HPI. ROS Other: All systems not noted in ROS Statement are negative. Constitutional: Denies: fever, chills Eyes: Denies: eye pain ENT: Denies: ear pain Respiratory: Reports: as per HPI, cough, dyspnea Cardiovascular: Denies: chest pain Endocrine: Denies: fatigue Gastrointestinal: Denies: abdominal pain Musculoskeletal: Denies: back pain Past Medical History Past Medical History: Cancer, COPD, CVA/TIA, GERD/Reflux, Hyperlipidemia, Hypertension, Osteoarthritis (OA), Thyroid Disorder, Vascular Disorder Additional Past Medical History / Comment(s): PAD IN BILATERAL LEGS/CAROTID DIS EASE, MITRAL VALVE REGURGITATION, HX STROKE IN 2006, LEFT SIDE WAS AFFECTED, ABLE TO USE ARM AND LEG BUT USES CANE/WALKER FOR BALANCE, HX COLORECTAL CANCER IN 2006/SURGERY ONLY, "BILATERAL CAROTIDS 100% BLOCKED." HYPERTHYROID. Lung CA 2023 History of Any Multi-Drug Resistant Organisms: None Reported Past Surgical History: Adenoidectomy, Appendectomy, Bowel Resection, Hysterectomy, Tonsillectomy, Tubal Ligation Additional Past Surgical History / Comment(s): BOWEL SURGERY FOR CANCER (NO CHEMO OR RADIATION), BILATERAL CATARACTS REMOVED, ATTEMPTED LEFT LEG ARTHRECTOMY. Past Anesthesia/Blood Transfusion Reactions: No Reported Reaction, Motion Sickness Additional Past Anesthesia/Blood Transfusion Reaction / Comment(s): CLAUSTERPHOBIA. Past Psychological History: Anxiety Smoking Status: Former smoker - Past Family History Father Family Medical History: Diabetes Mellitus, Hypertension, Myocardial Infarction ([place]) Additional Family Medical History / Comment(s): SMOKER. Mother Family Medical History: Dementia Additional Family Medical History / Comment(s): BIPOLAR, DEPRESSION. General Exam Limitations: no limitations General appearance: alert, in no apparent distress Head exam: Present: normocephalic Eye exam: Present: normal appearance Neck exam: Present: normal inspection Respiratory exam: Present: wheezes Cardiovascular Exam: Present: regular rate, normal rhythm GI/Abdominal exam: Present: soft. Absent: tenderness Extremities exam: Present: normal inspection. Absent: pedal edema, calf tenderness Neurological exam: Present: alert Psychiatric exam: Present: normal affect, normal mood Skin exam: Present: normal color Course Vital Signs 04/10/24 04/10/24 04/10/24 06:55 07:00 07:56 Temperature 98.8 F Pulse Rate 92 87 Respiratory 20 20 Rate Blood Pressure 91/74 O2 Sat by Pulse 93 L Oximetry 1204/10/24 04/10/24 08:07 09:27 09:30 Temperature Pulse Rate 89 96 96 Respiratory 22 21 Rate Blood Pressure 86/65 92/67 O2 Sat by Pulse 96 97 Oximetry 04/10/24 09:45 Temperature Pulse Rate 97 Respiratory 20 Rate Blood Pressure 76/57 O2 Sat by Pulse 96 Oximetry EKG Findings - EKG Results: EKG: interpreted by ERMD (Left axis. Left bundle branch block. Nonspecific ST- T), sinus rhythm Medical Decision Making - Medical Decision Making Was pt. sent in by a medical professional or institution (, PA, COMMISSARY AGENT, urgent care, hospital, or half-way...) When possible be specific @ -No Did you speak to anyone other than the patient for history (EMS, parent, family, police, friend...)? What history was obtained from this source @ -Daughter arrives and helps provide additional history including patient's pulmonary and oncology physicians Did you review nursing and triage notes (agree or disagree)? Why? @ -I reviewed and agree with nursing and triage notes Were old charts reviewed (outside hosp., previous admission, EMS record, old EKG, old radiological studies, urgent care reports/EKG's, half-way records)? Report findings @ -Previous chest x-ray reviewed, without concern for airspace disease like today Differential Diagnosis (chest pain, altered mental status, abdominal pain women, abdominal pain men, vaginal bleeding, weakness, fever, dyspnea, syncope, headache, dizziness, GI bleed, back pain, seizure, CVA, palpatations, mental health, musculoskeletal)? @ -Differential Dyspnea: Coronary syndrome, arrhythmia, tamponade, asthma, COPD, pulmonary embolism, pneumonia, pneumothorax, pulmonary effusion, anaphylaxis, diabetic ketoacidosis, flailed chest, pulmonary contusion, diaphragmatic rupture, anemia, neuromuscular, this is not meant to be an all-inclusive list. EKG interpreted by me (3pts min.). @ -As above X-rays interpreted by me (1pt min.). @ -Chest x-ray shows bilateral opacities with concern for airspace disease on the right upper CT interpreted by me (1pt min.). @ -None done U/S interpreted by me (1pt. min.). @ -None done What testing was considered but not performed or refused? (CT, X-rays, U/S, labs)? Why? @ -None What meds were considered but not given or refused? Why? @ -Consider pressors however blood pressure improved with IV fluids Did you discuss the management of the patient with other professionals (professionals i.e. , PA, COMMISSARY AGENT, lab, RT, psych nurse, social media coordinator, lane marker installer, teacher, chief analytics officer, upper caser)? Give summary @ -Case discussed with Dr. Ybarra who will admit covering Dr. Veliz Was smoking cessation discussed for >3mins.? @ -No Was critical care preformed (if so, how long)? @ -33 minutes critical care time Were there social determinants of health that impacted care today? How? (Homelessness, low income, unemployed, alcoholism, drug addiction, transportation, low edu. Level, literacy, decrease access to med. care, fpc, rehab)? @ -No Was there de-escalation of care discussed even if they declined (Discuss DNR or withdrawal of care, Hospice)? DNR status @ -No What co-morbidities impacted this encounter? (DM, HTN, Smoking, COPD, CAD, Cancer, CVA, ARF, Chemo, Hep., AIDS, mental health diagnosis, sleep apnea, morbid obesity)? @ -History of COPD and lung cancer Was patient admitted / discharged? Hospital course, mention meds given and route, prescriptions, significant lab abnormalities, going to OR and other pertinent info. @ -Patient presents with dyspnea. Chest x-ray concerning for pneumonia. P atient does require fluid boluses for blood pressure support. Patient will be admitted with consults. [place] orders written. Patient and family are updated. Undiagnosed new problem with uncertain prognosis? @ -No Drug Therapy requiring intensive monitoring for toxicity (Heparin, Nitro, Insulin, Cardizem)? @ -No Were any procedures done? @ -No Diagnosis/symptom? @ -Pneumonia, sepsis Acute, or Chronic, or Acute on Chronic? @ -Acute, acute Uncomplicated (without systemic symptoms) or Complicated (systemic symptoms)? @ -Complicated with hypotension that improved with fluid bolus Side effects of treatment? @ -No Exacerbation, Progression, or Severe Exacerbation? @ -No Poses a threat to life or bodily function? How? (Chest pain, [place], PA, pneumonia, PE, COPD, DKA, ARF, appy, cholecystitis, CVA, Diverticulitis, Homicidal, Suicidal, threat to staff... and all critical care pts) @ -Threat to pulmonary function - Lab Data Result diagrams: 04/10/24 07:02 04/10/24 07:02 Lab Results 04/10/24 04/10/24 04/10/24 Range/Units 07:02 07:02 07:02 WBC 9.5 (3.8-10.6) k/uL RBC 4.03 (3.80-5.40) m/uL Hgb 12.3 (11.4-16.0) gm/dL Hct 38.8 (34.0-46.0) % MCV 96.3 (80.0-100.0) fL MCH 30.4 (25.0-35.0) pg MCHC 31.6 (31.0-37.0) g/dL RDW 12.6 (11.5-15.5) % Plt Count 282 (150-450) k/uL MPV 6.9 Neutrophils % 80 % Lymphocytes % 9 % Monocytes % 6 % Eosinophils % 4 % Basophils % 0 % Neutrophils # 7.6 (1.3-7.7) k/uL Lymphocytes # 0.8 L (1.0-4.8) k/uL Monocytes # 0.5 (0-1.0) k/uL Eosinophils # 0.4 (0-0.7) k/uL Basophils # 0.0 (0-0.2) k/uL PT 10.7 (10.0-12.5) sec INR 1.0 (<1.2) APTT 23.3 (22.0-30.0) sec Sodium 136 L (137-145) mmol/L Potassium 3.4 L (3.5-5.1) mmol/L Chloride 95 L (98-107) mmol/L Carbon Dioxide 39 H (22-30) mmol/L Anion Gap 2 mmol/L BUN 16 (7-17) mg/dL Creatinine 0.80 (0.52-1.04) mg/dL Est GFR (CKD-EPI)AfAm 83 (>60 ml/min/1.73 sqM) Est GFR (CKD-EPI)NonAf 72 (>60 ml/min/1.73 sqM) Glucose 153 H (74-99) mg/dL Plasma Lactic Acid Jose (0.7-2.0) mmol/L Calcium 9.5 (8.4-10.2) mg/dL Magnesium 2.2 (1.6-2.3) mg/dL Total Bilirubin 0.4 (0.2-1.3) mg/dL AST 18 (14-36) U/L ALT 13 (4-34) U/L Alkaline Phosphatase 97 (38-126) U/L Total Protein 6.9 (6.3-8.2) g/dL Albumin 4.1 (3.5-5.0) g/dL Influenza Type A (PCR) (Not Detectd) Influenza Type B (PCR) (Not Detectd) RSV (PCR) (Not Detectd) SARS-CoV-2 (PCR) (Not Detectd) 04/10/24 04/10/24 Range/Units 07:02 08:17 WBC (3.8-10.6) k/uL RBC (3.80-5.40) m/uL Hgb (11.4-16.0) gm/dL Hct (34.0-46.0) % MCV (80.0-100.0) fL MCH (25.0-35.0) pg MCHC (31.0-37.0) g/dL RDW (11.5-15.5) % Plt Count (150-450) k/uL MPV Neutrophils % % Lymphocytes % % Monocytes % % Eosinophils % % Basophils % % Neutrophils # (1.3-7.7) k/uL Lymphocytes # (1.0-4.8) k/uL Monocytes # (0-1.0) k/uL Eosinophils # (0-0.7) k/uL Basophils # (0-0.2) k/uL PT (10.0-12.5) sec INR (<1.2) APTT (22.0-30.0) sec Sodium (137-145) mmol/L Potassium (3.5-5.1) mmol/L Chloride (98-107) mmol/L Carbon Dioxide (22-30) mmol/L Anion Gap mmol/L BUN (7-17) mg/dL Creatinine (0.52-1.04) mg/dL Est GFR (CKD-EPI)AfAm (>60 ml/min/1.73 sqM) Est GFR (CKD-EPI)NonAf (>60 ml/min/1.73 sqM) Glucose (74-99) mg/dL Plasma Lactic Acid Jose 1.6 (0.7-2.0) mmol/L Calcium (8.4-10.2) mg/dL Magnesium (1.6-2.3) mg/dL Total Bilirubin (0.2-1.3) mg/dL AST (14-36) U/L ALT (4-34) U/L Alkaline Phosphatase (38-126) U/L Total Protein (6.3-8.2) g/dL Albumin (3.5-5.0) g/dL Influenza Type A (PCR) Not Detected (Not Detectd) Influenza Type B (PCR) Not Detected (Not Detectd) RSV (PCR) Not Detected (Not Detectd) SARS-CoV-2 (PCR) Not Detected (Not Detectd) Critical Care Time Critical Care Time: Yes Disposition Clinical Impression: Pneumonia, Sepsis Disposition: ADMITTED IP TO THIS [facility] Condition: Serious Is patient prescribed a controlled substance at d/c from ED?: No Referrals: Elizabeth Veliz MD [Primary Care Provider] - 1-2 days Time of Disposition: 10:23
[2024-04-10] MEDS: IPRATROPIUM-ALBUTEROL 3 ML NEB INHALATION STA (07:55)
[2024-04-10] MEDS: methylPREDNISolone SOD SUCCI 125 MG/2 ML VIAL IV STA (07:59)
[2024-04-10] MEDS: LACTATED RINGERS 1,000 ML IV STA (08:00)
[2024-04-10] MEDS: LACTATED RINGERS 1,000 ML BAG IV STA (08:00)
[2024-04-10 08:18] LABS: Basophils % (A) 0 %; Eosinophils # (A) 0.4 k/uL (0-0.7); Eosinophils % (A) 4 %; HCT 38.8 % (34.0-46.0); HGB 12.3 gm/dL (11.4-16.0); Lymphocytes # (A) 0.8 k/uL (1.0-4.8); Lymphocytes % (A) 9 %; MCH 30.4 pg (25.0-35.0); MCHC 31.6 g/dL (31.0-37.0); MCV 96.3 fL (80.0-100.0); Mean Platelet Volume 6.9; Monocytes # (A) 0.5 k/uL (0-1.0); Monocytes % (A) 6 %; Neutrophils # (A) 7.6 k/uL (1.3-7.7); Neutrophils % (A) 80 %; Platelet Count 282 k/uL (150-450); RBC 4.03 m/uL (3.80-5.40); RDW 12.6 % (11.5-15.5); WBC 9.5 k/uL (3.8-10.6)
[2024-04-10 08:24] LABS: ALT 13 U/L (4-34); AST 18 U/L (14-36); African American GFR (CKD) 83 (>60 ml/min/1.73 sqM); Albumin 4.1 g/dL (3.5-5.0); Alkaline Phosphatase 97 U/L (38-126); Anion Gap 2 mmol/L; Blood Urea Nitrogen 16 mg/dL (7-17); Calcium 9.5 mg/dL (8.4-10.2); Carbon Dioxide 39 mmol/L (22-30); Chloride 95 mmol/L (98-107); Glucose 153 mg/dL (74-99); Magnesium 2.2 mg/dL (1.6-2.3); Non-African American GFR(CKD) 72 (>60 ml/min/1.73 sqM); Potassium 3.4 mmol/L (3.5-5.1); Sodium 136 mmol/L (137-145); Total Bilirubin 0.4 mg/dL (0.2-1.3); Total Protein 6.9 g/dL (6.3-8.2)
[2024-04-10 08:33] LABS: Partial Thromboplastin Time 23.3 sec (22.0-30.0); Prothrombin Time 10.7 sec (10.0-12.5)
--- NOTE | 2024-04-10 08:50 | XR ---
EXAMINATION TYPE: XR chest 2V DATE OF EXAM: 04/10/2024 8:32 AM COMPARISON: 01/01/[address] 02/14/2024 CLINICAL INDICATION: Female, 74 years old with shortness of breath, history of difficulty breathing, , TECHNIQUE: AP and lateral views FINDINGS: Heart borderline enlarged. Hyperinflation. Multifocal opacities are present, left greater than right upper lobes and left lower lung. Additional left pleural effusion noted. IMPRESSION: Ongoing moderate left pleural effusion with adjacent atelectasis and/or consolidation. Known large le ft upper lobe mass. Known smaller right upper lobe mass but now with new surrounding airspace disease . Correlate for superimposed pneumonia. [facility], , 04/10/2024 8:47 AM
[2024-04-10] MEDS: LORazepam 2 MG/ML INJ IV STA (09:33)
[2024-04-10] MEDS ORDERED: IPRATROPIUM-ALBUTEROL 3 ML NEB INHALATION PRN (10:23)
[2024-04-10] MEDS ORDERED: PNEUMONIA PROTOCOL UTILIZED 1 EACH MISC PO PRN (10:23)
[2024-04-10] MEDS: IPRATROPIUM-ALBUTEROL 3 ML NEB INHALATION SCH (11:32)
[2024-04-10] MEDS: LEVOFLOXACIN 750MG-D5W PMX 750 MG in DEXTROSE/WATER 1 150ML.BAG IVPB STA (11:48)
[2024-04-10] MEDS ORDERED: ACETAMINOPHEN TAB 325 MG TAB PO PRN (12:41)
[2024-04-10] MEDS: ACETAMINOPHEN ORAL SUSP 160 MG/5 ML CUP PO PRN (13:11)
[2024-04-10] MEDS: methylPREDNISolone SOD SUCCI 125 MG/2 ML VIAL IV SCH (14:00)
[2024-04-10] MEDS: CEFEPIME 2 GM in SODIUM CHLORIDE 0.9% 100 ML IVPB SCH (14:04)
--- NOTE | 2024-04-10 15:01 | P.CNPUL ---
History of Present Illness Consult date: 04/10/24 Requesting physician: Gerald Munson Reason for consult: dyspnea, abnormal CXR/CT Chief complaint: Shortness of breath History of present illness: This is a very pleasant 74-year-old female patient with a known history of lung mass highly suspicious for bronchogenic carcinoma noted back in December 2022, diastolic congestive heart failure, CVA/TIA, peripheral vascular disease, carotid artery stenosis, hypertension, hyperlipidemia, hypothyroidism, chronic obstructive pulmonary disease with chronic tobacco dependence and a history of colorectal cancer. She had initially declined any bronchoscopy with biopsy with Dr. Quiroga. A PET scan from December 2023 revealed left upper lobe lung mass with metastatic disease to the mediastinum and lower neck bilaterally. Possible right lung metastasis also present. She was to undergo a biopsy of the left neck mass on January 14, 2024 however interventional radiology felt it too close to blood vessels to do safely. A CT scan of the chest dated February 14, 2024 showed progression of disease with increasing size of the left upper lobe pulmonary mass measuring up to 6.7 cm. Additional new posterior right upper lobe 3.8 cm mass consistent with metastasis. Similar appearance of confluent metastatic adenopathy within the mediastinum extending into the right hilum. Similar left supraclavicular metastatic prominent lymph nodes. She presented here to the emergency room this morning with complaints of increasing shortness of breath and some difficulty in swallowing. Chest x-ray reveals ongoing moderate left pleural effusion with adjacent atelectasis and/or consolidation. Known large left upper lobe mass. Known smaller right upper lobe mass but now with surrounding airspace disease. Correlate for superimposed pneumonia. Is currently sitting up in a stretcher. Awake and alert in no acute distress. Maintaining O2 saturations in the mid 90s on 3 L/min per nasal cannula. Afebrile. Hemodynamically stable. White count 9.5. Hemoglobin 12.3. Platelets 282. Sodium 136. Potassium 3.4. Bicarb 39. BUN 16. Creatinine 0.80. Glucose 153. Viral screen negative. Review of Systems REVIEW OF SYSTEMS: CONSTITUTIONAL: Denies any recent significant weight loss or weight gain. EYES: Denies change in vision. EARS, NOSE, MOUTH, THROAT: Positive for difficulty swallowing. CARDIOVASCULAR: Denies chest pain, palpitations or syncopal episodes. RESPIRATORY: Positive for shortness of breath, cough, congestion no hemoptysis. GASTROINTESTINAL: Denies change in appetite, denies abdominal pain GENITOURINARY: Denies hematuria, denies infections. MUSKULOSKELETAL: Denies pain, denies swelling. INTEGUMENTARY: Denies rash, denies eczema. NEUROLOGICAL: Denies recent memory loss, no recent seizure activity. PSYCHIATRIC: Denies anxiety, denies depression. HEMATOLOGIC/LYMPHATIC: Positive for enlarged lymph nodes. Past Medical History Past Medical History: Cancer, COPD, CVA/TIA, GERD/Reflux, Hyperlipidemia, Hypertension, Osteoarthritis (OA), Thyroid Disorder, Vascular Disorder Additional Past Medical History / Comment(s): PAD IN BILATERAL LEGS/CAROTID DISEASE, MITRAL VALVE REGURGITATION, HX STROKE IN 2006, LEFT SIDE WAS AFFECTED, ABLE TO USE ARM AND LEG BUT USES CANE/WALKER FOR BALANCE, HX COLORECTAL CANCER IN 2006/SURGERY ONLY, "BILATERAL CAROTIDS 100% BLOCKED." HYPERTHYROID. Lung [place] 2023 History of Any Multi-Drug Resistant Organisms: None Reported Past Surgical History: Adenoidectomy, Appendectomy, Bowel Resection, Hysterectomy, Tonsillectomy, Tubal Ligation Additional Past Surgical History / Comment(s): BOWEL SURGERY FOR CANCER (NO CHEMO OR RADIATION), BILATERAL CATARACTS REMOVED, ATTEMPTED LEFT LEG ARTHRECTOMY. Past Anesthesia/Blood Transfusion Reactions: No Reported Reaction, Motion Sickness Additional Past Anesthesia/Blood Transfusion Reaction / Comment(s): CLAUSTERPHOBIA. Past Psychological History: Anxiety Smoking Status: Former smoker - Past Family History Father Family Medical History: Diabetes Mellitus, Hypertension, Myocardial Infarction ([place]) Additional Family Medical History / Comment(s): SMOKER. Mother Family Medical History: Dementia Additional Family Medical History / Comment(s): BIPOLAR, DEPRESSION. Medications and Allergies Home Medications Medication Instructions Recorded Confirmed Type Atorvastatin [Lipitor] 20 mg PO HS tab 06/18/14 04/10/24 Rx Aspirin [Adult Low Dose Aspirin EC] 81 mg PO DAILY 10/07/20 04/10/24 History Famotidine 20 mg PO BID 10/07/20 04/10/24 History Levothyroxine Sodium [Synthroid] 75 mcg PO DAILY 09/05/22 04/10/24 History Metoprolol Tartrate [Lopressor] 50 mg PO BID #180 tab 12/30/22 04/10/24 Rx Furosemide [Lasix] 40 mg PO DAILY #30 tab 01/03/23 04/10/24 Rx Albuterol Inhaler [Ventolin Hfa 2 puff INHALATION RT-QID 01/09/24 04/10/24 History Inhaler] Apixaban [Eliquis] 2.5 mg PO BID 01/09/24 04/10/24 History Cholecalciferol [Vitamin D3 (125 125 mcg PO DAILY 01/09/24 04/10/24 History Mcg = 5000 Iu)] Fluticasone/Vilanterol [Breo 1 puff INHALATION RT-DAILY 01/09/24 04/10/24 Histor y Ellipta 200-25 Mcg Inhaler] Temazepam [Restoril] 15 mg PO HS 04/10/24 04/10/24 History Allergies Allergy/AdvReac Type Severity Reaction Status Date / Time azithromycin Allergy dizziness, Verified 04/10/24 10:23 sweating, shaking codeine Allergy dizziness, Verified 04/10/24 10:23 sweating, shaking Penicillins AdvReac dizziness, Verified 04/10/24 10:23 sweating, shaking Physical Exam Vitals: Vital Signs Temp Pulse Resp BP Pulse Ox 04/10/24 12:00 101 H 20 85/58 96 04/10/24 11:44 97 04/10/24 11:32 96 04/10/24 11:00 95 20 83/62 95 04/10/24 10:00 97 17 101/79 93 L 04/10/24 09:45 97 20 76/57 96 04/10/24 09:30 96 21 92/67 97 04/10/24 09:27 96 22 86/65 96 04/10/24 08:07 89 04/10/24 07:56 87 04/10/24 07:00 20 04/10/24 06:55 98.8 F 92 20 91/74 93 L Intake and Output 04/09/24 04/10/24 04/10/24 22:59 06:59 14:59 Other: Weight 65.589 kg GENERAL EXAM: Alert, very pleasant 74-year-old female, on 3 L nasal cannula, fairly comfortable in no apparent distress. HEAD: Normocephalic. EYES: Normal reaction of pupils, equal size. NOSE: Clear with pink turbinates. THROAT: No erythema or exudates. NECK: No masses, no JVD. Left palpable lymph node supraclavicular. CHEST: No chest wall deformity. LUNGS: Equal air entry with few scattered rhonchi bilaterally. CVS: S1 and S2 normal with no audible murmur, regular rhythm. ABDOMEN: No hepatosplenomegaly, normal bowel sounds, no guarding or rigidity. SPINE: No scoliosis or deformity SKIN: No rashes CENTRAL NERVOUS SYSTEM: No focal deficits, tone is normal in all 4 extremities. EXTREMITIES: There is no peripheral edema. No clubbing, no cyanosis. Peripheral pulses are intact. Results - Laboratory Findings CBC and BMP: 04/10/24 07:02 04/10/24 07:02 PT/INR, D-dimer PT 10.7 sec (10.0-12.5) 04/10/24 07:02 INR 1.0 (<1.2) 04/10/24 07:02 Abnormal lab findings: Abnormal Labs 04/10/24 04/10/24 07:02 07:02 Lymphocytes # 0.8 L Sodium 136 L Potassium 3.4 L Chloride 95 L Carbon Dioxide 39 H Glucose 153 H - Diagnostic Findings Chest x-ray: image reviewed Assessment and Plan Assessment: Acute hypoxemic respiratory failure secondary to suspected postobstructive pneumonia in a patient with most likely metastatic lung cancer. Declined bronchoscopy and biopsies over a year ago. A PET scan from December 2023 revealed left upper lobe lung mass with metastatic disease to the mediastinum and lower neck bilaterally. Possible right lung metastasis also present. A CT scan of the chest dated February 14, 2024 showed progression of disease with increasing size of the left upper lobe pulmonary mass measuring up to 6.7 cm. Additional new posterior right upper lobe 3.8 cm mass consistent with metastasis. Similar appearance of confluent metastatic adenopathy within the mediastinum extending into the right hilum. Similar left supraclavicular metastatic prominent lymph nodes. Left supraclavicular neck mass that was to be biopsied 01/14/2024 however interventional radiology felt there were blood vessels too near the area to perform it safely Dysphagia suspect secondary to above History of diastolic congestive heart failure Moderate mitral regurgitation Peripheral vascular disease Hypertension Hyperlipidemia Chronic tobacco dependence Chronic obstructive pulmonary disease Plan: The patient was seen and evaluated Chest x-ray, labs and medications reviewed Continue cefepime and Levaquin Continue bronchodilators, steroids Lactated Ringer's at 130 mL/h Medical oncology consult The patient is adamant about a DNR/DNI CODE STATUS Not likely to proceed with any further intervention Family and patient are considering hospice We will continue to follow and make further recommendations based on her cli nical status I have personally seen and examined the patient, performed the documentation and the assessment and plan as written. Number of minutes spent on the visit: 20 Dictation was produced using [employer] dictation software. Please excuse any grammatical, word or spelling errors.
--- NOTE | 2024-04-10 19:26 | P.CONS ---
History of Present Illness - Reason for Consult Consult date: 04/10/24 lung cancer Requesting physician: Lenny Beltre - Chief Complaint SOB - History of Present Illness Patient is a 74 year old female follows with Dr. Ramirez, who initially presented with abnormal CXR showing a BRENDA lung lesion, and was seen by Dr Quiroga. PET scan on 12/05/2023 showed suspicious uptake in 3.4 cm BRENDA lung mass,bilateral neck,hilar and mediastinal nodes and possible mets to contralateral lung. She was offered a biopsy by Dr Quiroga but she initially declined it. She had CT brain on 01/14/2024 which was negative for mets. Attempted US guided biopsy of left supraclavicular node was aborted at [facility]. At her last f/u patient was agreeable to attempt a CT guided biopsy at least for diagnostic purposes, although she may not be a good candidate for systemic therapy. CT chest was obtained on 02/14/24 showed progression of disease with increasing size of the left upper lobe pulmonary mass measuring up to 6.7 cm. Additional new posterior right upper lobe 3.8 cm mass. Similar appearance of confluent metastatic adenopathy within the mediastinum extending to the right hilum and similar left supraclavicular metastatic prominent lymph nodes. Increased small left pleural effusion. However, since patient decided not to pursue biopsy at [place]. F/u with Dr. Ramirez was scheduled on 04/13. At today's visit, pt stating she does not want a biopsy or to undergo any systemic treatment. Patient presented to the emergency room with complaints of increasing shortness of breath. Patient also reports cough with clear sputum but states this has been at baseline. Denies fever and chills. Denies hemoptysis. She is also reporting increased dysphagia over the last 2 weeks with decreased oral intake, but is able to tolerate soft foods and fluids. Upon admit chest x-ray showed ongoing moderate left pleural effusion with adjacent atelectasis and/or consolidation. Known large left upper lobe mass. Known smaller right upper lobe mass but now with new surrounding airspace disease. Patient is afebrile, SpO2 in the mid 90s on 3 L nasal cannula. Hypotension was noted with systolic pressure in the 70s. Viral panel negative. IV antibiotics has been started, p ulmonology consulted. WBC 9.5, hemoglobin 12.3, platelets 182,000. Review of Systems 10 point ROS is negative except as stated in the HPI Past Medical History Past Medical History: Cancer, COPD, CVA/TIA, GERD/Reflux, Hyperlipidemia, Hypertension, Osteoarthritis (OA), Thyroid Disorder, Vascular Disorder Additional Past Medical History / Comment(s): PAD IN BILATERAL LEGS/CAROTID DISEASE, MITRAL VALVE REGURGITATION, HX STROKE IN 2006, LEFT SIDE WAS AFFECTED, ABLE TO USE ARM AND LEG BUT USES CANE/WALKER FOR BALANCE, HX COLORECTAL CANCER IN 2006/SURGERY ONLY, "BILATERAL CAROTIDS 100% BLOCKED." HYPERTHYROID. Lung CA 2023 History of Any Multi-Drug Resistant Organisms: None Reported Past Surgical History: Adenoidectomy, Appendectomy, Bowel Resection, Hysterectomy, Tonsillectomy, Tubal Ligation Additional Past Surgical History / Comment(s): BOWEL SURGERY FOR CANCER (NO CHEMO OR RADIATION), BILATERAL CATARACTS REMOVED, ATTEMPTED LEFT LEG ARTHRECTOMY. Past Anesthesia/Blood Transfusion Reactions: No Reported Reaction, Motion Sickness Additional Past Anesthesia/Blood Transfusion Reaction / Comm: CLAUSTERPHOBIA. Past Psychological History: Anxiety Smoking Status: Former smoker - Past Family History Father Family Medical History: Diabetes Mellitus, Hypertension, Myocardial Infarction ([place]) Additional Family Medical History / Comment(s): SMOKER. Mother Family Medical History: Dementia Additional Family Medical History / Comment(s): BIPOLAR, DEPRESSION. Medications and Allergies Home Medications Medication Instructions Recorded Confirmed Type Atorvastatin [Lipitor] 20 mg PO HS tab 06/18/14 04/10/24 Rx Aspirin [Adult Low Dose Aspirin EC] 81 mg PO DAILY 10/07/20 04/10/24 History Famotidine 20 mg PO BID 10/07/20 04/10/24 History Levothyroxine Sodium [Synthroid] 75 mcg PO DAILY 09/05/22 04/10/24 History Metoprolol Tartrate [Lopressor] 50 mg PO BID #180 tab 12/30/22 04/10/24 Rx Furosemide [Lasix] 40 mg PO DAILY #30 tab 01/03/23 04/10/24 Rx Albuterol Inhaler [Ventolin Hfa 2 puff INHALATION RT-QID 01/09/24 04/10/24 H istory Inhaler] Apixaban [Eliquis] 2.5 mg PO BID 01/09/24 04/10/24 History Cholecalciferol [Vitamin D3 (125 125 mcg PO DAILY 01/09/24 04/10/24 History Mcg = 5000 Iu)] Fluticasone/Vilanterol [Breo 1 puff INHALATION RT-DAILY 01/09/24 04/10/24 History Ellipta 200-25 Mcg Inhaler] Temazepam [Restoril] 15 mg PO HS 04/10/24 04/10/24 History Allergies Allergy/AdvReac Type Severity Reaction Status Date / Time azithromycin Allergy dizziness, Verified 04/10/24 10:23 sweating, shaking codeine Allergy dizziness, Verified 04/10/24 10:23 sweating, shaking Penicillins AdvReac dizziness, Verified 04/10/24 10:23 sweating, shaking Physical Exam Vitals: Vital Signs Temp Pulse Resp BP Pulse Ox 04/10/24 12:00 101 H 20 85/58 96 04/10/24 11:44 97 04/10/24 11:32 96 04/10/24 11:00 95 20 83/62 95 04/10/24 10:00 97 17 101/79 93 L 04/10/24 09:45 97 20 76/57 96 04/10/24 09:30 96 21 92/67 97 04/10/24 09:27 96 22 86/65 96 04/10/24 08:07 89 04/10/24 07:56 87 04/10/24 07:00 20 04/10/24 06:55 98.8 F 92 20 91/74 93 L Intake and Output 04/09/24 04/10/24 04/10/24 22:59 06:59 14:59 Other: Weight 65.589 kg - Constitutional General appearance: no acute distress - EENT Eyes: anicteric sclerae, EOMI ENT: hearing grossly normal - Respiratory Respiratory: bilateral: diminished (L>R) - Cardiovascular tachycardic - Gastrointestinal General gastrointestinal: soft, no tenderness - Integumentary Integumentary: no cyanotic - Musculoskeletal Musculoskeletal: generalized weakness - Psychiatric Psychiatric: A&O x's 3 Results CBC & Chem 7: 04/10/24 07:02 04/10/24 07:02 Labs: Abnormal Lab Results - Last 24 Hours (Table) 04/10/24 04/10/24 Range/Units 07:02 07:02 Lymphocytes # 0.8 L (1.0-4.8) k/uL Sodium 136 L (137-145) mmol/L Potassium 3.4 L (3.5-5.1) mmol/L Chloride 95 L (98-107) mmol/L Carbon Dioxide 39 H (22-30) mmol/L Glucose 153 H (74-99) mg/dL Chest x-ray: report reviewed CT scan - chest: report reviewed Assessment and Plan (1) Lung mass Current Visit: Yes Status: Acute Priority: High Code(s): R91.8 - OTHER NONSPECIFIC ABNORMAL FINDING OF LUNG FIELD SNOMED Code(s): 778383095 (2) Pneumonia Current Visit: Yes Status: Acute Code(s): J18.9 - PNEUMONIA, UNSPECIFIED ORGANISM SNOMED Code(s): 644286901 (3) Sepsis Current Visit: Yes Status: Acute Priority: High Code(s): A41.9 - SEPSIS, UNSPECIFIED ORGANISM SNOMED Code(s): 29720354 Plan: Pneumonia: Presented with complaints of increasing shortness of breath. She is also reporting increased dysphagia over the last 2 weeks with decreased oral intake. -Upon admit chest x-ray showed ongoing moderate left pleural effusion with adjacent atelectasis and/or consolidation. Known large left upper lobe mass. Known smaller right upper lobe mass but now with new surrounding airspace disease. -Patient is afebrile, SpO2 in the mid 90s on 3 L nasal cannula. Hypotension was noted with systolic pressure in the 70s. -Viral panel negative. Blood and sputum cultures pending. IV antibiotics has been started, pulmonology consulted. -Defer management to pulmonology and admitting team Lung masses, lymphadenopathy: -History as dictated in the HPI -PET scan on 12/05/2023 showed suspicious uptake in 3.4 cm BRENDA lung mass,bilateral neck,hilar and mediastinal nodes and possible mets to contralateral lung. She was offered a biopsy by Dr Quiroga but she initially declined it. -Attempted US guided biopsy of left supraclavicular node was aborted at [facility]. At her last f/u patient was agreeable to attempt a CT guided biopsy at least for diagnostic purposes, although she may not be a good candidate for systemic ther apy. CT chest was obtained on 02/14/24 showed progression of disease with increasing size of the left upper lobe pulmonary mass measuring up to 6.7 cm. Additional new posterior right upper lobe 3.8 cm mass. Similar appearance of confluent metastatic adenopathy within the mediastinum extending to the right hilum and similar left supraclavicular metastatic prominent lymph nodes. -However, since last f/u, patient decided not to pursue biopsy at [place]. F/u with Dr. Ramirez was scheduled on 04/13 to discuss goals of care. At today's visit, pt stating she does not want a biopsy or to undergo any systemic treatment, but is agreeable to IV abx and supportive care. We also discussed possible palliative RT and comfort care measures, however at this time, patient wanted to further think about treatment options vs comfort care measures. Will continue to follow Case briefly discussed with pulmonology team Doctor attests: I performed a history and physical examination of this patient, developed impression and plan of care. Discussed with dictator. I agree with dictators note, documented as a scribe.
[2024-04-10] MEDS: APIXABAN 2.5 MG TABLET PO SCH (21:09)
[2024-04-10] MEDS: ATORVASTATIN 20 MG TAB PO SCH (21:11)
[2024-04-10] MEDS: FAMOTIDINE 20 MG TAB PO SCH (21:16)
[2024-04-10] MEDS: TEMAZEPAM 15 MG CAP PO SCH (21:20)
--- NOTE | 2024-04-10 22:57 | P.CONS ---
History of Present Illness - Reason for Consult Consult date: 04/10/24 Sepsis Requesting physician: Jose Nieto - Chief Complaint Shortness of breath and cough x few days - History of Present Illness Patient is a 74-year-old female with a past medical history significant for CVA TIA hypertension hyperlipidemia did have a lung mass highly suspicious for bronchogenic carcinoma however did not have any biopsy done patient now presenting to the hospital for evaluation of increasing shortness of breath that apparently has been getting worse since around 4 this morning however the daughter mention breathing has been getting worse over the last few days patient also have a cough mild to moderate intensity not bring up any sputum denies any URI symptoms chest pain with coughing but no worsening no nausea no vomiting no abdominal pain or any diarrhea on presentation to the hospital the patient was afebrile patient was tachycardic mildly hypertensive and also hypoxic currently on 3 L nasal cannula oxygen patient did have white count of 9.5 creatinine is 0.8 liver enzymes are normal influenza RSV COVID testing was negative patient did have a chest x-ray ongoing moderate left effusion with adjacent atelectasis/consolidation noted large left upper lobe mass the right upper lobe mass now with surrounding airspace disease concerning for possible postobstructive pneumonia patient has been started on cefepime because of her penicillin allergy infectious disease was consulted for further management of antibiotic therapy Review of Systems Positive point and negatives has been mentioned in the HPI, complete review of systems was performed and all other systems are negative Past Medical History Past Medical History: Cancer, COPD, CVA/TIA, GERD/Reflux, Hyperlipidemia, Hypertension, Osteoarthritis (OA), Thyroid Disorder, Vascular Disorder Additional Past Medical History / Comment(s): PAD IN BILATERAL LEGS/CAROTID DISEASE, MITRAL VALVE REGURGITATION, HX STROKE IN 2006, LEFT SIDE WAS AFFECTED, ABLE TO USE ARM AND LEG BUT USES CANE/WALKER FOR BALANCE, HX COLORECTAL CANCER IN 2006/SURGERY ONLY, "BILATERAL CAROTIDS 100% BLOCKED." HYPERTHYROID. Lung CA 2023 History of Any Multi-Drug Resistant Organisms: None Reported Past Surgical History: Adenoidectomy, Appendectomy, Bowel Resection, Hysterectomy, Tonsillectomy, Tubal Ligation Additional Past Surgical History / Comment(s): BOWEL SURGERY FOR CANCER (NO CHEMO OR RADIATION), BILATERAL CATARACTS REMOVED, ATTEMPTED LEFT LEG ARTHRECTOMY. Past Anesthesia/Blood Transfusion Reactions: No Reported Reaction, Motion Sickness Additional Past Anesthesia/Blood Transfusion Reaction / Comm: CLAUSTERPHOBIA. Past Psychological History: Anxiety Smoking Status: Former smoker - Past Family History Father Family Medical History: Diabetes Mellitus, Hypertension, Myocardial Infarction ([place]) Additional Family Medical History / Comment(s): SMOKER. Mother Family Medical History: Dementia Additional Family Medical History / Comment(s): BIPOLAR, DEPRESSION. Medications and Allergies Home Medications Medication Instructions Recorded Confirmed Type Atorvastatin [Lipitor] 20 mg PO HS tab 06/18/14 04/10/24 Rx Aspirin [Adult Low Dose Aspirin EC] 81 mg PO DAILY 10/07/20 04/10/24 History Famotidine 20 mg PO BID 10/07/20 04/10/24 History Levothyroxine Sodium [Synthroid] 75 mcg PO DAILY 09/05/22 04/10/24 History Metoprolol Tartrate [Lopressor] 50 mg PO BID #180 tab 12/30/22 04/10/24 Rx Furosemide [Lasix] 40 mg PO DAILY #30 tab 01/03/23 04/10/24 Rx Albuterol Inhaler [Ventolin Hfa 2 puff INHALATION RT-QID 01/09/24 04/10/24 History Inhaler] Apixaban [Eliquis] 2.5 mg PO BID 01/09/24 04/10/24 History Cholecalciferol [Vitamin D3 (125 125 mcg PO DAILY 01/09/24 04/10/24 History Mcg = 5000 Iu)] Fluticasone/Vilanterol [Breo 1 puff INHALATION RT-DAILY 01/09/24 04/10/24 History Ellipta 200-25 Mcg Inhaler] Temazepam [Restoril] 15 mg PO HS 04/10/24 04/10/24 History Allergies Allergy/AdvReac Type Severity Reaction Status Date / Time azithromycin Allergy dizziness, Verified 04/10/24 10:23 sweating, shaking codeine Allergy dizziness, Verified 04/10/24 10:23 sweating, shaking Penicillins AdvReac dizziness, Verified 04/10/24 10:23 sweating, shaking Physical Exam Vitals: Vital Signs Temp Pulse Resp BP Pulse Ox 04/10/24 12:00 101 H 20 85/58 96 04/10/24 11:44 97 04/10/24 11:32 96 04/10/24 11:00 95 20 83/62 95 04/10/24 10:00 97 17 101/79 93 L 04/10/24 09:45 97 20 76/57 96 04/10/24 09:30 96 21 92/67 97 04/10/24 09:27 96 22 86/65 96 04/10/24 08:07 89 04/10/24 07:56 87 04/10/24 07:00 20 04/10/24 06:55 98.8 F 92 20 91/74 93 L Intake and Output 04/09/24 04/10/24 04/10/24 22:59 06:59 14:59 Other: Weight 65.589 kg GENERAL DESCRIPTION: Elderly female lying in bed, no distress. No tachypnea or accessory muscle of respiration use. HEENT: Shows Pallor , no scleral icterus. Oral mucous membrane is dry. NECK: Trachea central, no thyromegaly. LUNGS: Unlabored breathing. Coarse breath sounds bilaterally HEART: S1, S2, regular rate and rhythm. No loud murmur ABDOMEN: Soft, no tenderness , EXTREMITIES: No edema of feet. SKIN: No rash, no masses palpable. NEUROLOGICAL: The patient is awake, alert, oriented x3, mood and affect normal. Results CBC & Chem 7: 04/10/24 07:02 04/10/24 07:02 Labs: Abnormal Lab Results - Last 24 Hours (Table) 04/10/24 04/10/24 Range/Units 07:02 07:02 Lymphocytes # 0.8 L (1.0-4.8) k/uL Sodium 136 L (137-145) mmol/L Potassium 3.4 L (3.5-5.1) mmol/L Chloride 95 L (98-107) mmol/L Carbon Dioxide 39 H (22-30) mmol/L Glucose 153 H (74-99) mg/dL Assessment and Plan (1) Lung mass Current Visit: Yes Status: Acute Priority: High Code(s): R91.8 - OTHER NONSPECIFIC ABNORMAL FINDING OF LUNG FIELD SNOMED Code(s): 601011189 (2) Pneumonia Current Visit: Yes Status: Acute Code(s): J18.9 - PNEUMONIA, UNSPECIFIED ORGANISM SNOMED Code(s): 345659210 Plan: 1patient presented to hospital with increasing shortness of breath the patient also have a cough in this patient with known lung mass concerning for possible bronchogenic carcinoma with a chest x-ray not showing airspace disease surrounding the right upper lobe mass with a question of possible postobstructive pneumonia 2-patient with multiple antibiotic ALLERGIES that would limit the number of antibiotic safe to use 3-try to obtain sputum for Gram stain and culture 4-continue with cefepime and Levaquin while waiting for the workup to be completed We will follow on clinical condition and cultures to further adjust medication if needed Thank you for this consultation we will follow the patient along with you Dictation was produced using [employer] dictation software. please excuse any grammatical, word or spelling errors. Time with Patient: Greater than 30
--- NOTE | 2024-04-10 23:43 | HP ---
HISTORY AND PHYSICAL CHIEF COMPLAINT: Shortness of breath. HISTORY OF PRESENT ILLNESS: This 74-year-old woman with a past medical history of CHF, COPD, lung cancer, complaining of increasing shortness of breath and cough. The patient had bilateral upper lobe lesions and possible surrounding pneumonia. The patient was admitted for further evaluation. There is no history of any fever, rigors, or chills at this time. COVID-19 is negative. PAST MEDICAL HISTORY: History of CHF, COPD, lung cancer, and multiple medical issues. Rest of the history and chart is also reviewed. HOME MEDICATIONS: Reviewed, which include Restoril. Rest of medications reviewed. ALLERGIES: Reviewed include Zithromax. FAMILY HISTORY: History of diabetes mellitus and hypertension. SOCIAL HISTORY: Previous history of smoking. Daily alcohol. REVIEW OF SYSTEMS: Fourteen-point review is negative except as mentioned earlier. PHYSICAL EXAMINATION: VITAL SIGNS: Pulse is 101, blood pressure 85/58, and respiration 20. HEENT: Conjunctivae normal. NECK: No JVD. CARDIOVASCULAR: S1, S2. RESPIRATIONS: Breath sounds diminished at the bases. A few scattered rhonchi. No crackles. ABDOMEN: Soft and nontender. LEGS: No edema. NERVOUS SYSTEM: Nonfocal. LABORATORY DATA: Reviewed. ASSESSMENT: 1. Acute bilateral pneumonia, possibly postobstructive with sepsis present on admission. 2. Chronic obstructive pulmonary disease acute exacerbation. 3. Lung cancer. 4. Cerebrovascular accident and transient ischemic attack. 5. Hypertension. 6. Hyperlipidemia. 7. History of EtOH. 8. Multiple complex medical issues. RECOMMENDATIONS AND DISCUSSION: This is a 74-year-old woman, who presented with multiple complex medical issues. We will monitor the patient closely. Continue the current medications. Continue symptomatic treatment, otherwise. At this time, I recommend empiric antibiotics and consult Pulmonary and Infectious Disease. Overall prognosis extremely guarded because of multiple complex medical issues. Further medications to follow. See orders for details. We will also check cortisol also. We will continue to administer Solu- Medrol as well. MMODL / IJN: [id number] / MTDD
[2024-04-11] MEDS: SODIUM CHLORIDE 0.9% 500 ML 500 ML IV STA (01:18)
[2024-04-11] MEDS: DILTIAZEM DRIP BOLUS FROM BAG 1 MG SOLN IV ONE (01:29)
[2024-04-11] MEDS: DILTIAZEM 125 MG in SODIUM CHLORIDE 0.9% 100 ML IV SCH (01:30)
[2024-04-11] MEDS: CEFEPIME 2 GM in SODIUM CHLORIDE 0.9% 100 ML IVPB SCH ×2 (02:47→16:21)
[2024-04-11] MEDS: SODIUM CHLORIDE 0.9% 1,000 ML IV ONE (05:14)
[2024-04-11] MEDS: DEXTROSE 5% IN WATER 100 ML with AMIODARONE 150 MG IV ONE (05:15)
[2024-04-11] MEDS: AMIODARONE 360 MG in DEXTROSE 5% IN WATER 200 ML IV ONE (05:37)
[2024-04-11] MEDS: HEPARIN SOD,PORK IN 0.45% NACL 25,000 UNIT in 0.45% NACL 1 250ML.BAG IV SCH (05:43)
[2024-04-11] MEDS: LEVOTHYROXINE 75 MCG TAB PO SCH (06:39)
--- NOTE | 2024-04-11 06:49 | XR ---
EXAM: XR Chest, 1 View CLINICAL HISTORY: pneumonia TECHNIQUE: Frontal view of the chest. COMPARISON: Yesterday FINDINGS: Lungs: bilateral airspace opacities and masses are unchanged. Pleural space: Left pleural effusion and compressive atelectasis are unchanged. Mediastinum: Unchanged. Bones/joints: No acute findings. IMPRESSION: No substantial change.
[2024-04-11] MEDS: SYMBICORT 160-4.5 MCG INHALER INHALATION SCH (06:50)
[2024-04-11 08:09] LABS: Basophils % (A) 0 %; Eosinophils % (A) 0 %; HCT 32.9 % (34.0-46.0); HGB 10.7 gm/dL (11.4-16.0); Lymphocytes # (A) 0.3 k/uL (1.0-4.8); Lymphocytes % (A) 2 %; MCH 31.5 pg (25.0-35.0); MCHC 32.6 g/dL (31.0-37.0); MCV 96.8 fL (80.0-100.0); Mean Platelet Volume 6.8; Monocytes # (A) 0.8 k/uL (0-1.0); Monocytes % (A) 6 %; Neutrophils # (A) 13.4 k/uL (1.3-7.7); Neutrophils % (A) 92 %; Platelet Count 275 k/uL (150-450); RDW 12.9 % (11.5-15.5); WBC 14.7 k/uL (3.8-10.6)
[2024-04-11 08:27] LABS: African American GFR (CKD) >90 (>60 ml/min/1.73 sqM); Anion Gap 5 mmol/L; Blood Urea Nitrogen 14 mg/dL (7-17); Calcium 8.8 mg/dL (8.4-10.2); Carbon Dioxide 30 mmol/L (22-30); Chloride 100 mmol/L (98-107); Glucose 153 mg/dL (74-99); Non-African American GFR(CKD) 89 (>60 ml/min/1.73 sqM); Potassium 3.3 mmol/L (3.5-5.1); Sodium 135 mmol/L (137-145)
[2024-04-11] MEDS: LEVOFLOXACIN 750 MG TAB PO SCH (09:19)
[2024-04-11] MEDS: METOPROLOL TARTRATE 50 MG TAB PO SCH (09:19)
[2024-04-11] MEDS: ASPIRIN 81 MG PO SCH (09:20)
[2024-04-11] MEDS: PANTOPRAZOLE 40 MG TABLET PO SCH (09:20)
[2024-04-11] MEDS: CHOLECALCIFEROL 125 MCG (5000 IU) TABLET PO SCH (09:20)
--- NOTE | 2024-04-11 11:08 | P.CRDCN ---
History of Present Illness History of present illness: HISTORY OF PRESENT ILLNESS: This is a 74-year-old female with a past medical history significant for suspected metastatic lung cancer, paroxysmal atrial fibrillation, hypertension, hyperlipidemia, COPD, and peripheral arterial disease with previous angioplasty and stenting of the lower extremities. Patient follows in the office with Dr. Krishna. We have been asked to see the patient in consultation for atrial fibrillation. Patient examined at the bedside in the emergency room. Patient presented to the hospital for chief complaint of shortness of breath. Patient states she has been feeling short of breath for the past 3 to 4 days. She denies any chest pain or pressure. She also reports having some palpitations. Patient was found to be in A-fib with RVR. Patient was started on IV Amio and IV heparin. She does have a known history of atrial fibrillation and is on Eliquis outpatient. She states that she is also having some difficulty swallowing and needs her pills crushed. DIAGNOSTICS: - EKG reveals A-fib with RVR. Bedside telemetry reveals sinus mechanism. - Chest xray ongoing moderate left pleural effusion with adjacent atelectasis and/or consolidation. Known large left upper lobe mass. Known smaller right upper lobe mass but now with new surrounding airspace disease. Correlate for superimposed pneumonia. - Laboratory data: WBC 14.7. Hemoglobin 10.7. Platelet count 275. Sodium 135. Potassium 3.3. BUN 14. Creatinine 0.59. - Current home cardiac medications include Eliquis 2.5 mg twice a day, aspirin 81 mg daily, atorvastatin 20 mg at night, Lasix 40 mg daily, metoprolol tartrate 50 mg twice a day - Most recent echocardiogram obtained in December 2022 revealed ejection fraction 50 to 55%, mild MR -Patient underwent Lexiscan stress test in 2014 which was negative for ischemia REVIEW OF SYSTEMS: At the time of my exam: CONSTITUTIONAL: Denies fever or chills. HEENT: Denies blurred vision, vision changes, or eye pain. Denies hemoptysis CARDIOVASCULAR: Denies chest pain. Denies orthopnea. Denies PND. Denies palpitations RESPIRATORY: Denies shortness of breath. GASTROINTESTINAL: Denies abdominal pain. Denies nausea or vomiting. HEMATOLOGIC: Denies bleeding disorders. GENITOURINARY: Denies any blood in urine. SKIN: Denies pruitis. Denies rash. PHYSICAL EXAM: VITAL SIGNS: Reviewed. GENERAL: Well-developed in no acute distress. HEENT: Head is normocephalic. Pupils are equal, round. Sclerae anicteric. Mucous membranes of the mouth are moist. Neck supple. No JVD or thyromegaly LUNGS: Respirations even and unlabored. Lungs diminished bilaterally. HEART: Regular rate and rhythm. S1 and S2 heard. ABDOMEN: Soft. Nondistended. Nontender. EXTREMITIES: Normal range of motion. No clubbing or cyanosis. Peripheral pulses intact. No lower extremity edema NEUROLOGIC: Awake and alert. Oriented x 3. ASSESSMENT: Shortness of breath Pneumonia Acute hypoxic respiratory failure Paroxysmal atrial fibrillation with RVR, currently maintaining sinus mechanism Suspected metastatic lung cancer; apparently declining bronchoscopy and biopsy over a year ago, PET scan from 12/2023 revealing left upper lobe mass with metastatic disease to mediastinum and lower neck Dysphagia Hypertension Hyperlipidemia COPD Peripheral arterial disease with previous lower extremity angioplasty and stenting Nicotine dependence PLAN: Obtain 2D echo to assess cardiac structure and function Patient is complaining of difficulty swallowing her pills this morning. We will continue with IV heparin due to dysphagia. Will hold Eliquis at this time. Also continue amiodarone infusion at 0.5 mg for rhythm control Will resume metoprolol. Patient states she can take this crushed in applesauce. Continue telemetry monitoring Further recommendations pending patient course Nurse practitioner note has been reviewed by physician. Signing provider agrees with the documented findings, assessment, and plan of care documented by COMMUNICATIONS MAINTAINER as a scribe. Past Medical History Past Medical History: Cancer, COPD, CVA/TIA, GERD/Reflux, Hyperlipidemia, Hypertension, Osteoarthritis (OA), Thyroid Disorder, Vascular Disorder Additional Past Medical History / Comment(s): PAD IN BILATERAL LEGS/CAROTID DISEASE, MITRAL VALVE REGURGITATION, HX STROKE IN 2006, LEFT SIDE WAS AFFECTED, ABLE TO USE ARM AND LEG BUT USES CANE/WALKER FOR BALANCE, HX COLORECTAL CANCER IN 2006/SURGERY ONLY, "BILATERAL CAROTIDS 100% BLOCKED." HYPERTHYROID. Lung CA 2023 History of Any Multi-Drug Resistant Organisms: None Reported Past Surgical History: Adenoidectomy, Appendectomy, Bowel Resection, Hysterectomy, Tonsillectomy, Tubal Ligation Additional Past Surgical History / Comment(s): BOWEL SURGERY FOR CANCER (NO CHEMO OR RADIATION), BILATERAL CATARACTS REMOVED, ATTEMPTED LEFT LEG ARTHRECTOMY. Past Anesthesia/Blood Transfusion Reactions: No Reported Reaction, Motion Sickness Additional Past Anesthesia/Blood Transfusion Reaction / Comment(s): CLAUSTERPHOBIA. Past Psychological History: Anxiety Smoking Status: Former smoker - Past Family History Father Family Medical History: Diabetes Mellitus, Hypertension, Myocardial Infarction ([place]) Additional Family Medical History / Comment(s): SMOKER. Mother Family Medical History: Dementia Additional Family Medical History / Comment(s): BIPOLAR, DEPRESSION. Medications and Allergies Home Medications Medication Instructions Recorded Confirmed Type Atorvastatin [Lipitor] 20 mg PO HS tab 06/18/14 04/10/24 Rx Aspirin [Adult Low Dose Aspirin EC] 81 mg PO DAILY 10/07/20 04/10/24 History Famotidine 20 mg PO BID 10/07/20 04/10/24 History Levothyroxine Sodium [Synthroid] 75 mcg PO DAILY 09/05/22 04/10/24 History Metoprolol Tartrate [Lopressor] 50 mg PO BID #180 tab 12/30/22 04/10/24 Rx Furosemide [Lasix] 40 mg PO DAILY #30 tab 01/03/23 04/10/24 Rx Albuterol Inhaler [Ventolin Hfa 2 puff INHALATION RT-QID 01/09/24 04/10/24 History Inhaler] Apixaban [Eliquis] 2.5 mg PO BID 01/09/24 04/10/24 History Cholecalciferol [Vitamin D3 (125 125 mcg PO DAILY 01/09/24 04/10/24 History Mcg = 5000 Iu)] Fluticasone/Vilanterol [Breo 1 puff INHALATION RT-DAILY 01/09/24 04/10/24 History Ellipta 200-25 Mcg Inhaler] Temazepam [Restoril] 15 mg PO HS 04/10/24 04/10/24 History Allergies Allergy/AdvReac Type Severity Reaction Status Date / Time azithromycin Allergy dizziness, Verified 04/10/24 10:23 sweating, shaking codeine Allergy dizziness, Verified 04/10/24 10:23 sweating, shaking Penicillins AdvReac dizziness, Verified 04/10/24 10:23 sweating, shaking Physical Exam Vitals: Vital Signs Temp Pulse Resp BP Pulse Ox 04/11/24 06:08 98.0 F 106 H 22 141/87 96 04/11/24 05:40 133 H 20 106/85 95 04/11/24 05:30 124 H 24 92/66 95 04/11/24 05:20 147 H 22 103/86 95 04/11/24 05:10 146 H 24 87/59 92 L 04/11/24 05:00 144 H 22 69/49 95 04/11/24 04:50 168 H 22 82/68 95 04/11/24 04:40 168 H 24 107/53 95 04/11/24 04:30 172 H 24 88/58 94 L 04/11/24 04:20 146 H 22 73/63 95 04/11/24 04:10 174 H 24 86/72 95 04/11/24 04:00 156 H 22 85/73 93 L 04/11/24 03:50 149 H 23 99/74 95 04/11/24 03:40 141 H 20 85/72 92 L 04/11/24 03:30 151 H 22 109/97 92 L 04/11/24 03:20 172 H 22 83/73 94 L 04/11/24 03:10 151 H 22 84/44 93 L 04/11/24 03:00 161 H 22 96/63 92 L 04/11/24 02:50 152 H 22 91/79 93 L 04/11/24 02:40 176 H 22 86/75 93 L 04/11/24 02:30 142 H 22 108/60 92 L 04/11/24 02:20 147 H 22 123/72 93 L 04/11/24 02:10 168 H 22 105/93 93 L 04/11/24 02:00 147 H 22 103/70 95 04/11/24 01:50 149 H 22 109/81 93 L 04/11/24 01:45 158 H 20 116/66 93 L 04/11/24 01:40 151 H 22 116/66 94 L 04/11/24 01:35 147 H 22 118/75 94 L 04/11/24 01:30 158 H 22 82/52 94 L 04/11/24 01:25 156 H 22 110/82 95 04/11/24 01:20 190 H 22 82/54 94 L 04/11/24 01:15 170 H 22 65/24 94 L 04/11/24 01:10 149 H 22 118/75 95 04/11/24 01:00 110 H 22 80/61 95 04/11/24 00:45 107 H 18 91/71 93 L 04/11/24 00:30 108 H 20 80/61 92 L 04/11/24 00:15 106 H 20 81/63 92 L 04/11/24 00:00 108 H 22 78/61 92 L 04/10/24 23:45 104 H 22 90/72 93 L 04/10/24 23:30 108 H 22 83/65 94 L 04/10/24 23:15 107 H 22 87/73 92 L 04/10/24 23:00 111 H 22 94/57 93 L 04/10/24 22:45 106 H 20 95/54 93 L 04/10/24 21:40 112 H 20 80/66 93 L 04/10/24 18:40 112 H 18 85/65 92 L 04/10/24 18:24 108 H 04/10/24 18:20 108 H 19 86/62 98 04/10/24 18:13 106 H 04/10/24 18:10 106 H 24 80/59 93 L 04/10/24 18:00 107 H 19 84/62 91 L 04/10/24 17:50 108 H 18 83/58 92 L 04/10/24 17:40 107 H 24 69/55 92 L 04/10/24 17:30 106 H 24 86/59 93 L 04/10/24 17:00 108 H 24 72/55 93 L 04/10/24 16:00 110 H 26 H 75/56 94 L 04/10/24 15:04 102 H 04/10/24 15:00 97.9 F 100 27 H 101/74 98 04/10/24 14:54 99 04/10/24 14:50 100 23 81/47 95 04/10/24 14:40 101 H 22 73/42 95 04/10/24 14:36 100 20 73/42 93 L 04/10/24 12:00 101 H 20 85/58 96 04/10/24 11:44 97 04/10/24 11:32 96 04/10/24 11:00 95 20 83/62 95 Results 04/11/24 07:33 04/11/24 07:33 CBC 04/11/24 Range/Units 07:33 WBC 14.7 H (3.8-10.6) k/uL RBC 3.40 L (3.80-5.40) m/uL Hgb 10.7 L (11.4-16.0) gm/dL Hct 32.9 L (34.0-46.0) % Plt Count 275 (150-450) k/uL Comprehensive Metabolic Panel 04/11/24 Range/Units 07:33 Sodium 135 L (137-145) mmol/L Potassium 3.3 L (3.5-5.1) mmol/L Chloride 100 (98-107) mmol/L Carbon Dioxide 30 (22-30) mmol/L BUN 14 (7-17) mg/dL Creatinine 0.59 (0.52-1.04) mg/dL Glucose 153 H (74-99) mg/dL Calcium 8.8 (8.4-10.2) mg/dL Current Medications Generic Name Dose Route Start Last Admin Trade Name Freq PRN Reason Stop Dose Admin Acetaminophen 650 mg 04/10/24 12:49 04/10/24 13:11 Acetaminophen Oral Susp 160 Mg/5 Ml Cup PO 650 mg Q6HR PRN Administration Fever and/or Mild Pain Albuterol/Ipratropium 3 ml 04/10/24 12:00 04/11/24 06:51 Ipratropium-Albuterol 3 Ml Neb INHALATION Not Given RT-QID ELOISA Albuterol/Ipratropium 3 ml 04/10/24 10:23 Ipratropium-Albuterol 3 Ml Neb INHALATION RT-Q4H PRN shortness of breath Aspirin 81 mg 04/11/24 09:00 04/11/24 09:20 Aspirin 81 Mg PO 81 mg DAILY ELOISA Administration Atorvastatin Calcium 20 mg 04/10/24 21:00 04/10/24 21:11 Atorvastatin 20 Mg Tab PO 20 mg HS ELOISA Administration Budesonide/Formoterol Fumarate 2 puff 04/11/24 08:00 04/11/24 06:50 Symbicort 160-4.5 Mcg Inhaler INHALATION 2 puff RT-BID ELOISA Administration Cholecalciferol 125 mcg 04/11/24 09:00 04/11/24 09:20 Cholecalciferol 125 Mcg (5000 Iu) Tablet PO 125 mcg DAILY ELOISA Administration Famotidine 20 mg 04/10/24 21:00 04/11/24 09:20 Famotidine 20 Mg Tab PO 20 mg BID ELOISA Administration Cefepime HCl 2 gm/ Sodium 100 mls @ 25 mls/hr 04/11/24 02:00 04/11/24 02:47 Chloride IVPB Not Given Q12H ELOISA Protocol Heparin Sodium/Sodium Chloride 250 mls @ 7.871 mls/hr 04/11/24 05:45 04/11/24 05:43 25,000 unit/ Sodium Chloride IV 12 units/kg/hr .Q24H ELOISA 7.871 mls/hr Administration Protocol 12 UNITS/KG/HR Amiodarone HCl 450 mg/ 250 mls @ 16.667 mls/hr 04/11/24 09:30 Dextrose/Water IV .Q15H ELOISA Protocol 0.5 MG/MIN Levofloxacin 750 mg 04/11/24 09:00 04/11/24 09:19 Levofloxacin 750 Mg Tab PO 04/14/24 09:01 750 mg DAILY ELOISA Administration Protocol Levothyroxine Sodium 75 mcg 04/11/24 06:30 04/11/24 06:39 Levothyroxine 75 Mcg Tab PO Not Given DAILY@0630 [facility] Methylprednisolone Sodium Succinate 60 mg 04/10/24 13:45 04/11/24 06:06 Methylprednisolone Sod Succi 125 Mg/2 Ml Vial IV 60 mg Q6HR ELOISA Administration Metoprolol Tartrate 50 mg 04/11/24 09:00 04/11/24 09:19 Metoprolol Tartrate 50 Mg Tab PO 50 mg BID ELOISA Administration Miscellaneous Information 1 each 04/10/24 10:23 Pneumonia Protocol Utilized 1 Each Misc PO ONCE PRN Per Protocol Pantoprazole Sodium 40 mg 04/11/24 07:30 04/11/24 09:20 Pantoprazole 40 Mg Tablet PO 40 mg [id number] ELOISA Administration Temazepam 15 mg 04/10/24 21:00 04/10/24 21:20 Temazepam 15 Mg Cap PO Not Given HS ELOISA 04/11/24 07:33 04/11/24 07:33
[2024-04-11] MEDS ORDERED: AMIODARONE 450 MG in DEXTROSE 5% IN WATER 250 ML IV SCH (11:15)
[2024-04-11] MEDS: AMIODARONE 450 MG in DEXTROSE 5% IN WATER 250 ML IV SCH (11:29)
[2024-04-11] MEDS ORDERED: Magnesium Replacement Protocol 1 EACH MISC MISCELLANE PRN (14:10)
[2024-04-11] MEDS ORDERED: Potassium Replacement Protocol 1 EACH MISC MISCELLANE PRN (14:10)
--- NOTE | 2024-04-11 16:23 | P.PN ---
Subjective Progress Note Date: 04/11/24 This is a very pleasant 74-year-old female patient with a known history of lung mass highly suspicious for bronchogenic carcinoma noted back in December 2022, diastolic congestive heart failure, CVA/TIA, peripheral vascular disease, carotid artery stenosis, hypertension, hyperlipidemia, hypothyroidism, chronic obstructive pulmonary disease with chronic tobacco dependence and a history of colorectal cancer. She had initially declined any bronchoscopy with biopsy with Dr. Quiroga. A PET scan from December 2023 revealed left upper lobe lung mass with metastatic disease to the mediastinum and lower neck bilaterally. Possible right lung metastasis also present. She was to undergo a biopsy of the left neck mass on January 14, 2024 however interventional radiology felt it too close to blood vessels to do safely. A CT scan of the chest dated February 14, 2024 showed progression of disease with increasing size of the left upper lobe pulmonary mass measuring up to 6.7 cm. Additional new posterior right upper lobe 3.8 cm mass consistent with metastasis. Similar appearance of confluent metastatic adenopathy within the mediastinum extending into the right hilum. Similar left supraclavicular metastatic prominent lymph nodes. She presented here to the emergency room this morning with complaints of increasing shortness of breath and some difficulty in swallowing. Chest x-ray reveals ongoing moderate left pleural effusion with adjacent atelectasis and/or consolidation. Known large left upper lobe mass. Known smaller right upper lobe mass but now with surrounding airspace disease. Correlate for superimposed pneumonia. Is currently sitting up in a stretcher. Awake and alert in no acute distress. Maintaining O2 saturations in the mid 90s on 3 L/min per nasal cannula. Afebrile. Hemodynamically stable. White count 9.5. Hemoglobin 12.3. Platelets 282. Sodium 136. Potassium 3.4. Bicarb 39. BUN 16. Creatinine 0.80. Glucose 153. Viral screen negative. The patient is seen today April 11, 2024 in follow-up in the emergency department. She is awake and alert in no acute distress. Feeling about the same today compared to yesterday. No improvement. She did develop atrial fibrillation with a rapid ventricular response and is now on a heparin drip. Amiodarone drip at 1 mg/min. Maintaining O2 saturations in the 90s on 6 L high flow nasal cannula. She is afebrile. Blood pressure stable. Slightly tachycardic still. Blood and sputum cultures revealed no growth. White count 14.7. Hemoglobin 10.7. Platelets 275. Sodium 135. Potassium 3.3. Bicarb 30. BUN 14. Creatinine 0.59. Viral screen was negative. She is continued on DuoNeb and elations, Symbicort, Solu-Medrol. Antibiotics in the form of Levaquin and cefepime. Today's chest x-ray showing similar findings of left pleural effusion with adjacent atelectasis and/or consolidation. Known left upper lobe mass. Known smaller right upper lobe mass. Objective - Vital Signs Vital signs: Vital Signs Temp 97.3 F L 04/11/24 11:07 Pulse 112 H 04/11/24 16:14 Resp 20 04/11/24 16:14 BP 123/82 04/11/24 16:14 Pulse Ox 93 L 04/11/24 16:14 FiO2 - Exam GENERAL EXAM: Alert,, frail 74-year-old female, on 3 L nasal cannula, fairly comfortable in no apparent distress. HEAD: Normocephalic. EYES: Normal reaction of pupils, equal size. NOSE: Clear with pink turbinates. THROAT: No erythema or exudates. NECK: No masses, no JVD. Left palpable lymph node supraclavicular. CHEST: No chest wall deformity. LUNGS: Equal air entry with few scattered rhonchi bilaterally. CVS: S1 and S2 normal with no audible murmur, irregular rhythm. ABDOMEN: No hepatosplenomegaly, normal bowel sounds, no guarding or rigidity. SPINE: No scoliosis or deformity SKIN: No rashes CENTRAL NERVOUS SYSTEM: No focal deficits, tone is normal in all 4 extremities. EXTREMITIES: There is no peripheral edema. No clubbing, no cyanosis. Peripheral pulses are intact. - Labs CBC & Chem 7: 04/11/24 07:33 04/11/24 07:33 Labs: Abnormal Lab Results - Last 24 Hours (Table) 04/11/24 04/11/24 Range/Units 07:33 07:33 WBC 14.7 H (3.8-10.6) k/uL RBC 3.40 L (3.80-5.40) m/uL Hgb 10.7 L (11.4-16.0) gm/dL Hct 32.9 L (34.0-46.0) % Neutrophils # 13.4 H (1.3-7.7) k/uL Lymphocytes # 0.3 L (1.0-4.8) k/uL Sodium 135 L (137-145) mmol/L Potassium 3.3 L (3.5-5.1) mmol/L Glucose 153 H (74-99) mg/dL Microbiology - Last 24 Hours (Table) 04/10/24 08:17 Blood Culture - Preliminary Blood 04/10/24 14:55 Gram Stain - Final Sputum Sputum Culture - Final Assessment and Plan Assessment: Acute hypoxemic respiratory failure secondary to suspected postobstructive pneumonia in a patient with most likely metastatic lung cancer. Declined bronchoscopy and biopsies over a year ago. A PET scan from December 2023 re vealed left upper lobe lung mass with metastatic disease to the mediastinum and lower neck bilaterally. Possible right lung metastasis also present. A CT scan of the chest dated February 14, 2024 showed progression of disease with increasing size of the left upper lobe pulmonary mass measuring up to 6.7 cm. Additional new posterior right upper lobe 3.8 cm mass consistent with metastasis. Similar appearance of confluent metastatic adenopathy within the mediastinum extending into the right hilum. Similar left supraclavicular metastatic prominent lymph nodes. Atrial fibrillation with a rapid ventricular response requiring amiodarone drip at 1 mg/min, heparin drip initiated Left supraclavicular neck mass that was to be biopsied 01/14/2024 however interventional radiology felt there were blood vessels too near the area to perform it safely Dysphagia suspect secondary to above History of diastolic congestive heart failure Moderate mitral regurgitation Peripheral vascular disease Hypertension Hyperlipidemia Chronic tobacco dependence Chronic obstructive pulmonary disease Plan: The patient was seen and evaluated Chest x-ray, labs and medications reviewed Continue cefepime and Levaquin Continue bronchodilators, steroids Currently on amiodarone and heparin drip Prognosis is poor DNR/DNI CODE STATUS Family and patient are considering hospice We will continue to follow I have personally seen and examined the patient, performed the documentation and the assessment and plan as written. Number of minutes spent on the visit: 10 Dictation was produced using [employer] software. Please excuse any grammatical, word or spelling errors.
[2024-04-11] MEDS: ONDANSETRON 4 MG/2 ML VIAL IVP PRN (18:59)
[2024-04-11] MEDS: ACETAMINOPHEN IV (For NPO) 1,000 MG in EMPTY BAG 1 BAG IVPB PRN (18:59)
[2024-04-12 08:51] LABS: Basophils % (A) 0 %; Eosinophils # (A) 0.1 k/uL (0-0.7); Eosinophils % (A) 0 %; HGB 11.2 gm/dL (11.4-16.0); Lymphocytes # (A) 0.2 k/uL (1.0-4.8); Lymphocytes % (A) 1 %; MCH 31.7 pg (25.0-35.0); MCV 95.9 fL (80.0-100.0); Mean Platelet Volume 7.1; Monocytes # (A) 0.6 k/uL (0-1.0); Monocytes % (A) 3 %; Neutrophils # (A) 16.8 k/uL (1.3-7.7); Neutrophils % (A) 95 %; Platelet Count 300 k/uL (150-450); RBC 3.55 m/uL (3.80-5.40); RDW 13.3 % (11.5-15.5); WBC 17.7 k/uL (3.8-10.6)
[2024-04-12 09:20] LABS: African American GFR (CKD) >90 (>60 ml/min/1.73 sqM); Anion Gap 4 mmol/L; Blood Urea Nitrogen 15 mg/dL (7-17); Calcium 9.1 mg/dL (8.4-10.2); Carbon Dioxide 33 mmol/L (22-30); Chloride 95 mmol/L (98-107); Glucose 170 mg/dL (74-99); Non-African American GFR(CKD) 88 (>60 ml/min/1.73 sqM); Potassium 3.1 mmol/L (3.5-5.1); Sodium 132 mmol/L (137-145)
--- NOTE | 2024-04-12 12:54 | CA ---
Transthoracic Echo Report Name: Michelle Sinclair Age: 74 Gender: F : 1950 Exam Date: 04/12/2024 10:06 Exam Location: [facility] Ht (in): 66 Wt (lb): 144 Ordering Physician: Gillian Leon Attending/Referring Phys: [id number], Edward Mapping Engineer Velia Flores RDCS Procedure CPT: Indications: LV function, AF, lung mass Cardiac Hx: Technical Quality: Fair Contrast 1: Total Dose (mL): Contrast 2: Total Dose (mL): MEASUREMENTS (Male / Female) Normal Values 2D ECHO LV Diastolic Diameter PLAX 4.6 cm 4.2 - 5.9 / 3.9 - 5.3 cm LV Systolic Diameter PLAX 3.6 cm IVS Diastolic Thickness 1.2 cm 0.6 - 1.0 / 0.6 - 0.9 cm LVPW Diastolic Thickness 1.2 cm 0.6 - 1.0 / 0.6 - 0.9 cm LV Relative Wall Thickness 0.5 RV Internal Dim ED PLAX 3.1 cm LA Systolic Diameter LX 3.6 cm 3.0 - 4.0 / 2.7 - 3.8 cm LV Diastolic Volume MOD 4C 50.9 cm??? LV Systolic Volume MOD 4C 29.1 cm??? LV Ejection Fraction MOD 4C 42.9 % LV Cardiac Index MOD 4C 1236.7 cm???/min???m??? LV Diastolic Length 4C 7.2 cm LV Systolic Length 4C 6.3 cm LV Diastolic Volume MOD 2C 59.3 cm??? LV Systolic Volume MOD 2C 23.7 cm??? LV Ejection Fraction MOD 2C 60.1 % LV Cardiac Index MOD 2C 2017.3 cm???/min???m??? LV Diastolic Length 2C 7.7 cm LV Systolic Length 2C 6.6 cm LA Volume 65.6 cm??? 18 - 58 / 22 - 52 cm??? LA Volume Index 37.5 cm???/m??? 16 - 28 cm???/m??? M-MODE Aortic Root Diameter MM 3.5 cm AV Cusp Separation MM 2.4 cm DOPPLER AV Peak Velocity 103.4 cm/s AV Peak Gradient 4.3 mmHg MV Area PHT 5.8 cm??? MV Deceleration Time 110.4 ms TR Peak Velocity 316.5 cm/s TR Peak Gradient 40.1 mmHg Right Ventricular Systolic Press 45.1 mmHg FINDINGS Left Ventricle Left ventricular ejection fraction is estimated at 45-50 %. Left ventricular cavity size normal. Mildly increased septal wall thickness. Mildly increased posterior wall thickness. Right Ventricle Normal right ventricular size. Moderate pulmonary hypertension. Right Atrium Right atrium not well visualized. Left Atrium Moderately increased left atrial volume. Mildly increased left atrial area. Mitral Valve Mild thickening/calcification of the anterior mitral valve leaflet. Severe thickening/calcification of the posterior mitral valve leaflet. Mild mitral regurgitation. Aortic Valve Trileaflet aortic valve. Aortic valve sclerosis. Tricuspid Valve Structurally normal tricuspid valve. Mild tricuspid regurgitation. Pulmonic Valve Pulmonic valve not well visualized. Trace to mild pulmonic regurgitation. Pericardium No pericardial effusion. Aorta Normal size aortic root and proximal ascending aorta. CONCLUSIONS Mild LV systolic dysfunction with an ejection fraction of 45% Mitral annular calcification with mild mitral regurgitation Moderate pulmonary hypertension Previewed by: Dr. Berhane Diego MD (Electronically Signed) Final Date: 12 April 2024 12:53
--- NOTE | 2024-04-12 13:35 | P.PN ---
Subjective HISTORY OF PRESENT ILLNESS: This is a 74-year-old female with a past medical history significant for suspected metastatic lung cancer, paroxysmal atrial fibrillation, hypertension, hyperlipidemia, COPD, and peripheral arterial disease with previous angioplasty and stenting of the lower extremities. Patient follows in the office with Dr. Krishna. We have been asked to see the patient in consultation for atrial fibrillation. Patient examined at the bedside in the emergency room. Patient presented to the hospital for chief complaint of shortness of breath. Patient states she has been feeling short of breath for the past 3 to 4 days. She den ies any chest pain or pressure. She also reports having some palpitations. Patient was found to be in A-fib with RVR. Patient was started on IV Amio and IV heparin. She does have a known history of atrial fibrillation and is on Eliquis outpatient. She states that she is also having some difficulty swallowing and needs her pills crushed. DIAGNOSTICS: - EKG reveals A-fib with RVR. Bedside telemetry reveals sinus mechanism. - Chest xray ongoing moderate left pleural effusion with adjacent atelectasis and/or consolidation. Known large left upper lobe mass. Known smaller right upper lobe mass but now with new surrounding airspace disease. Correlate for superimposed pneumonia. - Laboratory data: WBC 14.7. Hemoglobin 10.7. Platelet count 275. Sodium 135. Potassium 3.3. BUN 14. Creatinine 0.59. - Current home cardiac medications include Eliquis 2.5 mg twice a day, aspirin 81 mg daily, atorvastatin 20 mg at night, Lasix 40 mg daily, metoprolol tartrate 50 mg twice a day - Most recent echocardiogram obtained in December 2022 revealed ejection fraction 50 to 55%, mild MR -Patient underwent Lexiscan stress test in 2014 which was negative for ischemia 04/12/2024 Patient examined this morning at the bedside. Patient currently denies chest pain or pressure. Patient remains on IV heparin and IV amiodarone as she has unable to take oral medications. Patient states that she is going hospice tomorrow and does not want these medications continued. PHYSICAL EXAM: VITAL SIGNS: Reviewed. GENERAL: Well-developed in no acute distress. HEENT: Head is normocephalic. Pupils are equal, round. Sclerae anicteric. Mucous membranes of the mouth are moist. Neck supple. No JVD or thyromegaly LUNGS: Respirations even and unlabored. Lungs diminished bilaterally. HEART: Regular rate and rhythm. S1 and S2 heard. ABDOMEN: Soft. Nondistended. Nontender. EXTREMITIES: Normal range of motion. No clubbing or cyanosis. Peripheral pulses intact. No lower extremity edema NEUROLOGIC: Awake and alert. Oriented x 3. ASSESSMENT: Shortness of breath Pneumonia Acute hypoxic respiratory failure Paroxysmal atrial fibrillation with RVR, currently maintaining sinus mechanism Suspected metastatic lung cancer; apparently declining bronchoscopy and biopsy over a year ago, PET scan from 12/2023 revealing left upper lobe mass with metastatic disease to mediastinum and lower neck Dysphagia Hypertension Hyperlipidemia COPD Peripheral arterial disease with previous lower extremity angioplasty and stenting Nicotine dependence PLAN: Patient states she is going hospice tomorrow and does not want any of her medications continued at this time. May discontinue IV heparin and IV amiodarone per patient request Cardiology will sign off at this time. Please reconsult if needed. Nurse practitioner note has been reviewed by physician. Signing provider agrees with the documented findings, assessment, and plan of care documented by TOOL MAINTENANCE WORKER as a scribe. Objective - Vital Signs Vital signs: Vital Signs Temp 98.1 F 04/12/24 04:00 Pulse 102 H 04/12/24 12:56 Resp 18 04/12/24 08:30 BP 146/77 04/12/24 08:30 Pulse Ox 89 L 04/12/24 09:49 FiO2 Intake & Output 04/11/24 04/12/24 04/12/24 18:59 06:59 18:59 Intake Total 392.435 Output Total 400 Balance -7.565 Weight 65.5 kg Intake: Intake, IV Titration 392.435 Amount Amiodarone 450 mg In 204.449 Dextrose 5% in Water 250 ml @ 0.5 MG/MIN 16.667 mls/hr IV .Q15H ELOISA Rx#: [id number] Heparin Sod,Pork in 0.45% 187.986 NaCl 25,000 unit In 0.45 % NaCl 1 250ml.bag @ 12 UNITS/KG/HR 7.871 mls/hr IV .Q24H ELOISA Rx#: [id number] Output: Urine 400 Other: Voiding Method External Catheter External Catheter - Labs CBC & Chem 7: 04/12/24 08:18 04/12/24 08:18 Labs: Abnormal Lab Results - Last 24 Hours (Table) 04/12/24 04/12/24 04/12/24 Range/Units 08:18 08:18 08:18 WBC 17.7 H (3.8-10.6) k/uL RBC 3.55 L (3.80-5.40) m/uL Hgb 11.2 L (11.4-16.0) gm/dL Neutrophils # 16.8 H (1.3-7.7) k/uL Lymphocytes # 0.2 L (1.0-4.8) k/uL APTT 32.1 H (22.0-30.0) sec Sodium 132 L (137-145) mmol/L Potassium 3.1 L (3.5-5.1) mmol/L Chloride 95 L (98-107) mmol/L Carbon Dioxide 33 H (22-30) mmol/L Glucose 170 H (74-99) mg/dL Microbiology - Last 24 Hours (Table) 04/10/24 08:17 Blood Culture - Preliminary Blood
[2024-04-12] MEDS: ACETAMINOPHEN IV (For NPO) 1,000 MG in EMPTY BAG 1 BAG IVPB PRN (14:26)
--- NOTE | 2024-04-12 14:41 | P.PN ---
Subjective Progress Note Date: 04/11/24 Principal diagnosis: Reason for follow-up is pneumonia Patient is a 74-year-old female with a past medical history significant for CVA TIA hypertension hyperlipidemia did have a lung mass highly suspicious for bronchogenic carcinoma however did not have any biopsy done patient now presenting to the hospital for evaluation of increasing shortness of breath and cough patient did have CT with a left upper lobe mass surrounding airspace disease concerning for possible postoperative pneumonia. On today's evaluation that is 04/11/2024, patient did not have any fever and denies any chills, patient is breathing slightly comfortably on 3 L current oxygen, patient with no chest pain or any worsening cough patient did not have any abdominal pain nausea vomiting or any loose stools. Patient white count is 14.7, creatinine 0.59 Objective - Vital Signs Vital signs: Vital Signs Temp 97.3 F L 04/11/24 11:07 Pulse 92 04/11/24 11:07 Resp 18 04/11/24 11:07 BP 135/81 04/11/24 11:07 Pulse Ox 93 L 04/11/24 11:07 FiO2 - Exam GENERAL DESCRIPTION: An elderly female lying in bed in no distress RESPIRATORY SYSTEM: Unlabored breathing , coarse breath sounds HEART: S1 S2 regular rate and rhythm , ABDOMEN: Soft , no tenderness EXTREMITIES: No edema feet - Labs CBC & Chem 7: 04/12/24 08:18 04/12/24 08:18 Labs: Abnormal Lab Results - Last 24 Hours (Table) 04/11/24 04/11/24 Range/Units 07:33 07:33 WBC 14.7 H (3.8-10.6) k/uL RBC 3.40 L (3.80-5.40) m/uL Hgb 10.7 L (11.4-16.0) gm/dL Hct 32.9 L (34.0-46.0) % Neutrophils # 13.4 H (1.3-7.7) k/uL Lymphocytes # 0.3 L (1.0-4.8) k/uL Sodium 135 L (137-145) mmol/L Potassium 3.3 L (3.5-5.1) mmol/L Glucose 153 H (74-99) mg/dL Microbiology - Last 24 Hours (Table) 04/10/24 14:55 Gram Stain - Final Sputum Sputum Culture - Final Assessment and Plan (1) Lung mass Current Visit: Yes Status: Acute Priority: High Code(s): R91.8 - OTHER NONSPECIFIC ABNORMAL FINDING OF LUNG FIELD SNOMED Code(s): 707504377 (2) Pneumonia Current Visit: Yes Status: Acute Code(s): J18.9 - PNEUMONIA, UNSPECIFIED ORGANISM SNOMED Code(s): 786750315 Plan: 1patient presented to hospital with increasing shortness of breath the patient also have a cough in this patient with known lung mass concerning for possible bronchogenic carcinoma with a chest x-ray not showing airspace disease surrounding the right upper lobe mass with a question of possible postobstructive pneumonia 2-patient with multiple antibiotic ALLERGIES that would limit the number of antibiotic safe to use 3-blood and sputum cultures currently pending 4-patient continue with cefepime while waiting for the workup to be completed Dictation was produced using [employer] dictation software. please excuse any grammatical, word or spelling errors. Time with Patient: Less than 30
--- NOTE | 2024-04-12 14:42 | P.PN ---
Subjective Progress Note Date: 04/12/24 Principal diagnosis: Reason for follow-up is pneumonia Patient is a 74-year-old female with a past medical history significant for CVA TIA hypertension hyperlipidemia did have a lung mass highly suspicious for bronchogenic carcinoma however did not have any biopsy done patient now presenting to the hospital for evaluation of increasing shortness of breath and cough patient did have CT with a left upper lobe mass surrounding airspace disease concerning for possible postoperative pneumonia. On today's evaluation that is 04/12/2024, Patient is afebrile patient is cu rrently on 6 L nasal oxygen and mention breathing slightly comfortably the patient continued to have a cough with occasional sputum production hemoptysis denies any chest pain no nausea vomiting abdominal pain or diarrhea. Patient white count of 17.7 creatinine 0.61 urine for Legionella antigen nega tive blood and sputum culture currently pending Objective - Vital Signs Vital signs: Vital Signs Temp 98.1 F 04/12/24 04:00 Pulse 102 H 04/12/24 12:56 Resp 18 04/12/24 08:30 BP 146/77 04/12/24 08:30 Pulse Ox 89 L 04/12/24 09:49 FiO2 Intake & Output 04/11/24 04/12/24 04/12/24 18:59 06:59 18:59 Intake Total 392.435 Output Total 400 Balance -7.565 Weight 65.5 kg Intake: Intake, IV Titration 392.435 Amount Amiodarone 450 mg In 204.449 Dextrose 5% in Water 250 ml @ 0.5 MG/MIN 16.667 mls/hr IV .Q15H ELOISA Rx#: [id number] Heparin Sod,Pork in 0.45% 187.986 NaCl 25,000 unit In 0.45 % NaCl 1 250ml.bag @ 12 UNITS/KG/HR 7.871 mls/hr IV .Q24H ELOISA Rx#: [id number] Output: Urine 400 Other: Voiding Method External Catheter External Catheter - Exam GENERAL DESCRIPTION: An elderly female lying in bed in no distress RESPIRATORY SYSTEM: Unlabored breathing , coarse breath sounds HEART: S1 S2 regular rate and rhythm , ABDOMEN: Soft , no tenderness EXTREMITIES: No edema feet - Labs CBC & Chem 7: 04/12/24 08:18 04/12/24 08:18 Labs: Abnormal Lab Results - Last 24 Hours (Table) 04/12/24 04/12/24 04/12/24 Range/Units 08:18 08:18 08:18 WBC 17.7 H (3.8-10.6) k/uL RBC 3.55 L (3.80-5.40) m/uL Hgb 11.2 L (11.4-16.0) gm/dL Neutrophils # 16.8 H (1.3-7.7) k/uL Lymphocytes # 0.2 L (1.0-4.8) k/uL APTT 32.1 H (22.0-30.0) sec Sodium 132 L (137-145) mmol/L Potassium 3.1 L (3.5-5.1) mmol/L Chloride 95 L (98-107) mmol/L Carbon Dioxide 33 H (22-30) mmol/L Glucose 170 H (74-99) mg/dL Microbiology - Last 24 Hours (Table) 04/10/24 08:17 Blood Culture - Preliminary Blood Assessment and Plan (1) Lung mass Current Visit: Yes Status: Acute Priority: High Code(s): R91.8 - OTHER NONSPECIFIC ABNORMAL FINDING OF LUNG FIELD SNOMED Code(s): 500666419 (2) Pneumonia Current Visit: Yes Status: Acute Code(s): J18.9 - PNEUMONIA, UNSPECIFIED ORGANISM SNOMED Code(s): 979794403 Plan: 1patient presented to hospital with increasing shortness of breath the patient also have a cough in this patient with known lung mass concerning for possible bronchogenic carcinoma with a chest x-ray not showing airspace disease surrounding the right upper lobe mass with a question of possible postobstructive pneumonia 2-patient with multiple antibiotic ALLERGIES that would limit the number of antibiotic safe to use 3-blood and sputum cultures currently pending, urine for the urine antigen has been negative 4-patient continue with cefepime however discontinue Levaquin as urine for Legionella antigen is negative and monitor clinical course closely Dictation was produced using [employer] dictation software. please excuse any grammatical, word or spelling errors. Time with Patient: Less than 30
--- NOTE | 2024-04-12 14:56 | P.PN ---
Subjective Progress Note Date: 04/12/24 This is a very pleasant 74-year-old female patient with a known history of lung mass highly suspicious for bronchogenic carcinoma noted back in December 2022, diastolic congestive heart failure, CVA/TIA, peripheral vascular disease, carotid artery stenosis, hypertension, hyperlipidemia, hypothyroidism, chronic obstructive pulmonary disease with chronic tobacco dependence and a history of colorectal cancer. She had initially declined any bronchoscopy with biopsy with Dr. Quiroga. A PET scan from December 2023 revealed left upper lobe lung mass with metastatic disease to the mediastinum and lower neck bilaterally. Possible right lung metastasis also present. She was to undergo a biopsy of the left neck mass on January 14, 2024 however interventional radiology felt it too close to blood vessels to do safely. A CT scan of the chest dated February 14, 2024 showed progression of disease with increasing size of the left upper lobe pulmonary mass measuring up to 6.7 cm. Additional new posterior right upper lobe 3.8 cm mass consistent with metastasis. Similar appearance of confluent metastatic adenopathy within the mediastinum extending into the right hilum. Similar left supraclavicular metastatic prominent lymph nodes. She presented here to the emergency room this morning with complaints of increasing shortness of breath and some difficulty in swallowing. Chest x-ray reveals ongoing moderate left pleural effusion with adjacent atelectasis and/or consolidation. Known large left upper lobe mass. Known smaller right upper lobe mass but now with surrounding airspace disease. Correlate for superimposed pneumonia. Is currently sitting up in a stretcher. Awake and alert in no acute distress. Maintaining O2 saturations in the mid 90s on 3 L/min per nasal cannula. Afebrile. Hemodynamically stable. White count 9.5. Hemoglobin 12.3. Platelets 282. Sodium 136. Potassium 3.4. Bicarb 39. BUN 16. Creatinine 0.80. Glucose 153. Viral screen negative. The patient is seen today April 11, 2024 in follow-up in the emergency department. She is awake and alert in no acute distress. Feeling about the same today compared to yesterday. No improvement. She did develop atrial fibrillation with a rapid ventricular response and is now on a heparin drip. Amiodarone drip at 1 mg/min. Maintaining O2 saturations in the 90s on 6 L high flow nasal cannula. She is afebrile. Blood pressure stable. Slightly tachycardic still. Blood and sputum cultures revealed no growth. White count 14.7. Hemoglobin 10.7. Platelets 275. Sodium 135. Potassium 3.3. Bicarb 30. BUN 14. Creatinine 0.59. Viral screen was negative. She is continued on DuoNeb and elations, Symbicort, Solu-Medrol. Antibiotics in the form of Levaquin and cefepime. Today's chest x-ray showing similar findings of left pleural effusion with adjacent atelectasis and/or consolidation. Known left upper lobe mass. Known smaller right upper lobe mass. The patient is seen today April 12, 2024 in follow-up on the selective care unit. She is awake and alert in no acute distress. She remains quite weak and debilitated. She is maintaining O2 saturation in the high 80s low 90s on 6 L high flow nasal cannula. Blood culture reveals no growth. Sputum culture revealed no growth. Count 17.7. Hemoglobin 11.2. Platelets 300. Sodium 132. Potassium 3.1. Bicarb 33. BUN 15. Creatinine 0.61. Glucose 170. She remains on DuoNeb inhalations, Symbicort, Solu-Medrol. Antibiotics in the form of cefepime. Echocardiogram reveals impaired left ventricular systolic function with ejection fraction of 45%. Moderate pulmonary hypertension Objective - Vital Signs Vital signs: Vital Signs Temp 98.1 F 04/12/24 04:00 Pulse 102 H 04/12/24 12:56 Resp 18 04/12/24 08:30 BP 146/77 04/12/24 08:30 Pulse Ox 89 L 04/12/24 09:49 FiO2 Intake & Output 04/11/24 04/12/24 04/12/24 18:59 06:59 18:59 Intake Total 392.435 Output Total 400 Balance -7.565 Weight 65.5 kg Intake: Intake, IV Titration 392.435 Amount Amiodarone 450 mg In 204.449 Dextrose 5% in Water 250 ml @ 0.5 MG/MIN 16.667 mls/hr IV .Q15H ELOISA Rx#: [id number] Heparin Sod,Pork in 0.45% 187.986 NaCl 25,000 unit In 0.45 % NaCl 1 250ml.bag @ 12 UNITS/KG/HR 7.871 mls/hr IV .Q24H ELOISA Rx#: [id number] Output: Urine 400 Other: Voiding Method External Catheter External Catheter - Exam GENERAL EXAM: Alert, weak, frail 74-year-old female, on 3 L nasal cannula, comfortable in no apparent distress. HEAD: Normocephalic. EYES: Normal reaction of pupils, equal size. NOSE: Clear with pink turbinates. THROAT: No erythema or exudates. NECK: No masses, no JVD. Left palpable lymph node supraclavicular. CHEST: No chest wall deformity. LUNGS: Equal air entry with few scattered rhonchi bilaterally. CVS: S1 and S2 normal with no audible murmur, irregular rhythm. ABDOMEN: No hepatosplenomegaly, normal bowel sounds, no guarding or rigidity. SPINE: No scoliosis or deformity SKIN: No rashes CENTRAL NERVOUS SYSTEM: No focal deficits, tone is normal in all 4 extremities. EXTREMITIES: There is no peripheral edema. No clubbing, no cyanosis. Peripheral pulses are intact. - Labs CBC & Chem 7: 04/12/24 08:18 04/12/24 08:18 Labs: Abnormal Lab Results - Last 24 Hours (Table) 04/12/24 04/12/24 04/12/24 Range/Units 08:18 08:18 08:18 WBC 17.7 H (3.8-10.6) k/uL RBC 3.55 L (3.80-5.40) m/uL Hgb 11.2 L (11.4-16.0) gm/dL Neutrophils # 16.8 H (1.3-7.7) k/uL Lymphocytes # 0.2 L (1.0-4.8) k/uL APTT 32.1 H (22.0-30.0) sec Sodium 132 L (137-145) mmol/L Potassium 3.1 L (3.5-5.1) mmol/L Chloride 95 L (98-107) mmol/L Carbon Dioxide 33 H (22-30) mmol/L Glucose 170 H (74-99) mg/dL Microbiology - Last 24 Hours (Table) 04/10/24 08:17 Blood Culture - Preliminary Blood Assessment and Plan Assessment: Acute hypoxemic respiratory failure secondary to suspected postobstructive pneumonia in a patient with most likely metastatic lung cancer. Declined br onchoscopy and biopsies over a year ago. A PET scan from December 2023 revealed left upper lobe lung mass with metastatic disease to the mediastinum and lower neck bilaterally. Possible right lung metastasis also present. A CT scan of the chest dated February 14, 2024 showed progression of disease with increasing size of the left upper lobe pulmonary mass measuring up to 6.7 cm. Additional new posterior right upper lobe 3.8 cm mass consistent with metastasis. Similar appearance of confluent metastatic adenopathy within the mediastinum extending into the right hilum. Similar left supraclavicular metastatic prominent lymph nodes. Atrial fibrillation with a rapid ventricular response Left supraclavicular neck mass that was to be biopsied 01/14/2024 however interventional radiology felt there were blood vessels too near the area to perform it safely Dysphagia suspect secondary to above History of diastolic congestive heart failure Moderate mitral regurgitation Peripheral vascular disease Hypertension Hyperlipidemia Chronic tobacco dependence Chronic obstructive pulmonary disease Plan: The patient was seen and evaluated Echocardiogram, labs and medications reviewed Continue cefepime Continue bronchodilators, steroids Prognosis is poor DNR CODE STATUS We will continue to follow I have personally seen and examined the patient, performed the documentation and the assessment and plan as written. Number of minutes spent on the visit: 10 Dictation was produced using [employer] dictation software. Please excuse any grammatical, word or spelling errors.
--- NOTE | 2024-04-13 09:09 | PN ---
PROGRESS NOTE DATE OF SERVICE: 04/11/2024 SUBJECTIVE: This 74-year-old woman was admitted with acute bilateral pneumonia and COPD, is being closely monitored. shortness of breath. The most recent chest x-ray done today which I reviewed personally showed significant effusion bilaterally. The patient also had lung cancer and pneumonia lesion was suspected. PAST MEDICAL HISTORY: Reviewed. REVIEW OF SYSTEMS: Could not be taken. CURRENT MEDICATIONS: Reviewed. PHYSICAL EXAMINATION: VITAL SIGNS: Pulse is 112, blood pressure 128/68, respirations 20. HEENT: Conjunctivae normal. NECK: No JVD. CARDIOVASCULAR: S1, S2. RESPIRATIONS: Bilateral scattered rhonchi and crackles. ABDOMEN: Soft and nontender. LABORATORY DATA: WBC 14.7. ASSESSMENT: 1. Acute bilateral pneumonia, possibly postobstructive and sepsis present on admission. 2. Chronic obstructive pulmonary disease acute exacerbation. 3. Lung cancer, left. 4. Cerebrovascular accident and transient ischemic attack. 5. History of hypertension. 6. History of hyperlipidemia. 7. History of EtOH. 8. Multiple complex medical issues. RECOMMENDATIONS AND DISCUSSION: Continue current management. Continue with broad-spectrum IV antibiotics. The patient is on cefepime. Continue the rest of medications. Prognosis extremely guarded because of multiple complex medical issues. Further recommendations were discussed the patient. MMODL / IJN: [id number] / MTDD
[2024-04-13 09:16] LABS: Basophils % (A) 0 %; Eosinophils % (A) 0 %; HCT 37.9 % (34.0-46.0); HGB 12.2 gm/dL (11.4-16.0); Lymphocytes # (A) 0.2 k/uL (1.0-4.8); Lymphocytes % (A) 1 %; MCH 30.7 pg (25.0-35.0); MCHC 32.1 g/dL (31.0-37.0); MCV 95.6 fL (80.0-100.0); Mean Platelet Volume 6.8; Monocytes # (A) 0.7 k/uL (0-1.0); Monocytes % (A) 4 %; Neutrophils # (A) 17.9 k/uL (1.3-7.7); Neutrophils % (A) 95 %; Platelet Count 300 k/uL (150-450); RBC 3.96 m/uL (3.80-5.40); RDW 12.9 % (11.5-15.5); WBC 18.9 k/uL (3.8-10.6)
[2024-04-13 09:32] LABS: African American GFR (CKD) >90 (>60 ml/min/1.73 sqM); Anion Gap 4 mmol/L; Blood Urea Nitrogen 18 mg/dL (7-17); Calcium 9.4 mg/dL (8.4-10.2); Carbon Dioxide 34 mmol/L (22-30); Chloride 94 mmol/L (98-107); Glucose 146 mg/dL (74-99); Non-African American GFR(CKD) 80 (>60 ml/min/1.73 sqM); Potassium 3.3 mmol/L (3.5-5.1); Sodium 132 mmol/L (137-145)
--- NOTE | 2024-04-13 10:53 | PN ---
PROGRESS NOTE DATE OF SERVICE: 04/12/2024 SUBJECTIVE: This is a 74-year-old woman, who was admitted with bilateral pneumonia planning for home with hospice at this time. Family has had discussions. assistant property manager, social human services assistants to follow. 2D echo with Doppler showed mild LV dysfunction. PAST MEDICAL HISTORY: Reviewed. REVIEW OF SYSTEMS: A 14-point review of systems is negative. CURRENT MEDICATIONS: Reviewed. PHYSICAL EXAMINATION: VITAL SIGNS: Pulse is 80, blood pressure 143/77, and respirations 18. HEENT: Conjunctivae normal. NECK: No JVD. CARDIOVASCULAR: S1, S2. RESPIRATIONS: Breath sounds diminished at the bases. Few scattered rhonchi. ABDOMEN: Soft. LEGS: No edema. NERVOUS SYSTEM: Nonfocal. LABORATORY DATA: WBC n. ASSESSMENT: 1. Acute bilateral pneumonia, possibly postobstructive with sepsis, present on admission. 2. Chronic obstructive pulmonary disease, acute exacerbation. 3. Lung cancer, left. 4. Cerebrovascular accident and transient ischemic attack. 5. Multiple complex medical issues. RECOMMENDATIONS: Continue current management and continue symptomatic treatment. family is aware of the extremely guarded prognosis. We will plan home with hospice within the 24 hours. Overall prognosis is extremely guarded. Further recommendations to follow. MMODL / IJN: [id number] / DENNY
[2024-04-13 11:36] LABS: Glucose,Whole Blood 154 mg/dL (70-110)
[2024-04-13] MEDS ORDERED: ZINC OXIDE PASTE (Z-GUARD) 1 APPLIC TOPICAL PRN (12:47)
[2024-04-13 13:57] VITALS: BMI 26.6
[2024-04-13] MEDS ORDERED: ALPRAZolam 0.25 MG TAB PO PRN (14:10)
[2024-04-13] MEDS: LORazepam 2 MG/ML INJ IV STA (14:40)
--- NOTE | 2024-04-13 15:34 | P.PN ---
Subjective Progress Note Date: 04/13/24 This is a very pleasant 74-year-old female patient with a known history of lung mass highly suspicious for bronchogenic carcinoma noted back in December 2022, diastolic congestive heart failure, CVA/TIA, peripheral vascular disease, carotid artery stenosis, hypertension, hyperlipidemia, hypothyroidism, chronic obstructive pulmonary disease with chronic tobacco dependence and a history of colorectal cancer. She had initially declined any bronchoscopy with biopsy with Dr. Quiroga. A PET scan from December 2023 revealed left upper lobe lung mass with metastatic disease to the mediastinum and lower neck bilaterally. Possible right lung metastasis also present. She was to undergo a biopsy of the left neck mass on January 14, 2024 however interventional radiology felt it too close to blood vessels to do safely. A CT scan of the chest dated February 14, 2024 showed progression of disease with increasing size of the left upper lobe pulmonary mass measuring up to 6.7 cm. Additional new posterior right upper lobe 3.8 cm mass consistent with metastasis. Similar appearance of confluent metastatic adenopathy within the mediastinum extending into the right hilum. Similar left supraclavicular metastatic prominent lymph nodes. She presented here to the emergency room this morning with complaints of increasing shortness of breath and some difficulty in swallowing. Chest x-ray reveals ongoing moderate left pleural effusion with adjacent atelectasis and/or consolidation. Known large left upper lobe mass. Known smaller right upper lobe mass but now with surrounding airspace disease. Correlate for superimposed pneumonia. Is currently sitting up in a stretcher. Awake and alert in no acute distress. Maintaining O2 saturations in the mid 90s on 3 L/min per nasal cannula. Afebrile. Hemodynamically stable. White count 9.5. Hemoglobin 12.3. Platelets 282. Sodium 136. Potassium 3.4. Bicarb 39. BUN 16. Creatinine 0.80. Glucose 153. Viral screen negative. The patient is seen today April 11, 2024 in follow-up in the emergency department. She is awake and alert in no acute distress. Feeling about the same today compared to yesterday. No improvement. She did develop atrial fibrillation with a rapid ventricular response and is now on a heparin drip. Amiodarone drip at 1 mg/min. Maintaining O2 saturations in the 90s on 6 L high flow nasal cannula. She is afebrile. Blood pressure stable. Slightly tachycardic still. Blood and sputum cultures revealed no growth. White count 14.7. Hemoglobin 10.7. Platelets 275. Sodium 135. Potassium 3.3. Bicarb 30. BUN 14. Creatinine 0.59. Viral screen was negative. She is continued on DuoNeb and elations, Symbicort, Solu-Medrol. Antibiotics in the form of Levaquin and cefepime. Today's chest x-ray showing similar findings of left pleural effusion with adjacent atelectasis and/or consolidation. Known left upper lobe mass. Known smaller right upper lobe mass. The patient is seen today April 12, 2024 in follow-up on the selective care unit. She is awake and alert in no acute distress. She remains quite weak and debilitated. She is maintaining O2 saturation in the high 80s low 90s on 6 L high flow nasal cannula. Blood culture reveals no growth. Sputum culture revealed no growth. Count 17.7. Hemoglobin 11.2. Platelets 300. Sodium 132. Potassium 3.1. Bicarb 33. BUN 15. Creatinine 0.61. Glucose 170. She remains on DuoNeb inhalations, Symbicort, Solu-Medrol. Antibiotics in the form of cefepime. Echocardiogram reveals impaired left ventricular systolic function with ejection fraction of 45%. Moderate pulmonary hypertension The patient is seen today April 13, 2024 in follow-up on the selective care unit. She is currently sitting up in bed. Awake and alert in no acute d istress. Maintaining O2 saturations in the 90s on 6 L/min per nasal cannula. Blood culture revealed no growth. Sputum culture revealed no growth. She remains on DuoNeb and elations, Symbicort, Solu-Medrol. Antibiotics in the form of cefepime. No new labs today. Objective - Vital Signs Vital signs: Vital Signs Temp 97.4 F L 04/13/24 08:00 Pulse 116 H 04/13/24 12:00 Resp 18 04/13/24 08:00 BP 133/85 04/13/24 12:00 Pulse Ox 95 04/13/24 12:00 FiO2 Intake & Output 04/12/24 04/13/24 04/13/24 18:59 06:59 18:59 Output Total 1350 Balance -1350 Weight 75 kg 75 kg Output: Urine 1350 Other: Voiding Method External Catheter External Catheter External Catheter - Exam GENERAL EXAM: Alert, weak, frail 74-year-old female, on 6 L flow nasal cannula, in no apparent distress. HEAD: Normocephalic. EYES: Normal reaction of pupils, equal size. NOSE: Clear with pink turbinates. THROAT: No erythema or exudates. NECK: No masses, no JVD. Left palpable lymph node supraclavicular. CHEST: No chest wall deformity. LUNGS: Equal air entry with few scattered rhonchi bilaterally. CVS: S1 and S2 normal with no audible murmur, irregular rhythm. ABDOMEN: No hepatosplenomegaly, normal bowel sounds, no guarding or rigidity. SPINE: No scoliosis or deformity SKIN: No rashes CENTRAL NERVOUS SYSTEM: No focal deficits, tone is normal in all 4 extremities. EXTREMITIES: There is no peripheral edema. No clubbing, no cyanosis. Peripheral pulses are intact. - Labs CBC & Chem 7: 04/13/24 08:03 04/13/24 08:03 Labs: Abnormal Lab Results - Last 24 Hours (Table) 04/13/24 04/13/24 04/13/24 Range/Units 08:03 08:03 11:34 WBC 18.9 H (3.8-10.6) k/uL Neutrophils # 17.9 H (1.3-7.7) k/uL Lymphocytes # 0.2 L (1.0-4.8) k/uL Sodium 132 L (137-145) mmol/L Potassium 3.3 L (3.5-5.1) mmol/L Chloride 94 L (98-107) mmol/L Carbon Dioxide 34 H (22-30) mmol/L BUN 18 H (7-17) mg/dL Glucose 146 H (74-99) mg/dL POC Glucose (mg/dL) 154 H (70-110) mg/dL Microbiology - Last 24 Hours (Table) 04/10/24 08:17 Blood Culture - Preliminary Blood Assessment and Plan Assessment: Acute hypoxemic respiratory failure secondary to suspected postobstructive pneumonia in a patient with most likely metastatic lung cancer. Declined bronchoscopy and biopsies over a year ago. A PET scan from December 2023 revealed left upper lobe lung mass with metastatic disease to the mediastinum and lower neck bilaterally. Possible right lung metastasis also present. A CT scan of the chest dated February 14, 2024 showed progression of disease with increasing size of the left upper lobe pulmonary mass measuring up to 6.7 cm. Additional new posterior right upper lobe 3.8 cm mass consistent with metastasis. Similar appearance of confluent metastatic adenopathy within the mediastinum extending into the right hilum. Similar left supraclavicular metastatic prominent lymph nodes. Atrial fibrillation with a rapid ventricular response Left supraclavicular neck mass that was to be biopsied 01/14/2024 however interventional radiology felt there were blood vessels too near the area to perform it safely Dysphagia suspect secondary to above History of diastolic congestive heart failure Moderate mitral regurgitation Peripheral vascular disease Hypertension Hyperlipidemia Chronic tobacco dependence Chronic obstructive pulmonary disease Plan: The patient was seen and evaluated Medications reviewed Continue cefepime Continue bronchodilators, steroids Prognosis is poor DNR CODE STATUS Plan may be for home with hospice today I have personally seen and examined the patient, performed the documentation and the assessment and plan as written. Number of minutes spent on the visit: 10 Dictation was produced using [employer] dictation software. Please excuse any grammatical, word or spelling errors.
[2024-04-13 19:59] VITALS: BP 151/90; RESP 16; TEMP 98
[2024-04-13 20:48] VITALS: PULSE 110
--- NOTE | 2024-04-14 13:17 | P.DS ---
Providers Date of admission: 04/10/24 10:23 Expected date of discharge: 04/13/24 Attending physician: Gerald Munson MD Consults: 04/10/24 10:23 Consult Physician Routine Consulting Provider: Arpit Campos Consult Reason/Comments: Pneumonia, sepsis, lung cancer, COPD Do you want consulting provider notified?: Yes Consult Physician Routine Consulting Provider: Allison Ramirez Consult Reason/Comments: Lung cancer, pneumonia, sepsis Do you want consulting provider notified?: Yes 04/10/24 13:29 Consult Physician Routine Consulting Provider: Lucy Zendejas Consult Reason/Comments: sepsis Do you want consulting provider notified?: Yes Primary care physician: Elizabeth Veliz Hospital Course: Final diagnosis Acute bilateral pneumonia, likely postobstructive with sepsis, present on admission Chronic obstructive pulmonary disease, acute exacerbation History of left-sided lung cancer, not receiving treatment and does not want any further intervention CVA history GI prophylaxis DVT prophylaxis No code Discharge disposition Patient is being discharged in a stable condition with guarded and poor prognosis to home with [facility] hosp[facility]. Patient will follow-up with Dr. Veliz in the outpatient setting upon discharge. Patient is to continue with [facility] hospice services as scheduled. Total time taken is greater than 35 minutes. Hospital course This is a 74-year-old f with increasing shortness of breath concerns of bilateral pneumonia elikely postobstructive with features of sepsis, present on admission. Male who was recently admitted patient maintained on antibiotics showing minimal improvement although has discussed further with case management and like to go home on hospice. Plan was to improve slightly from pneumonia and return home with hospice. Patient requiring 6 L and is being arranged for oxygen on discharge with [facility] hospice services. Patient does not want to seek any further treatment regarding lung cancer. Please refer to consultation notes for further HPI. Patient will be going home with [facility] hosp[facility] today. Overall poor and guarded prognosis. Currently no reports of chest pain, no worsening shortness of breath, or palpitations. Patient is afebrile. No reports of nausea or vomiting and patient is tolerating diet. Patient will be discharged home today. Physical exam: Gen: This is a 74-year-old female who is awake, alert oriented x 3, thin build, elderly appearing, well-developed HEENT: Head is atraumatic, normocephalic. Pupils equal, round. Sclerae is anicteric. NECK: Supple. No JVD. No lymphadenopathy. No thyromegaly. LUNGS: Diminished breath sounds bilaterally with coarse rhonchi noted. No intercostal retractions. HEART: Regular rate and rhythm. No murmur. ABDOMEN: Soft. Bowel sounds are present. No masses. No tenderness. EXTREMITIES: No pedal edema. No calf tenderness. NEUROLOGICAL: Patient is awake, alert and oriented x3. Cranial nerves 2 through 12 are grossly intact. Diffusely weak Please refer to medication reconciliation sheet for a list of medications. The impression and plan of care has been dictated by Марина Garza, Nurse Practitioner as directed. Dr. Gerson MD I have performed a history and examination and MDM of this patient, discussed the same with the dictator, and agree with the dictator's assessment and plan as written ,documented as a scribe. Based on total visit time, I have performed more than 50% of the visit. Patient Condition at Discharge: Serious Plan - Discharge Summary Discharge Rx Participant: Yes New Discharge Prescriptions: New Ipratropium-Albuterol Nebulize [Duoneb 0.5 mg-3 mg/3 ml Soln] 3 ml INHALATION RT-QID each Ipratropium-Albuterol Nebulize [Duoneb 0.5 mg-3 mg/3 ml Soln] 3 ml INHALATION RT-Q4H PRN each PRN Reason: shortness of breath Acetaminophen Oral Susp [Tylenol] 650 mg PO Q6HR PRN ml PRN Reason: Fever And/Or Mild Pain Continue Fluticasone/Vilanterol [Breo Ellipta 200-25 Mcg Inhaler] 1 puff INHALATION RT-DAILY Albuterol Inhaler [Ventolin Hfa Inhaler] 2 puff INHALATION RT-QID Temazepam [Restoril] 15 mg PO HS No Action Atorvastatin [Lipitor] 20 mg PO HS tab Famotidine 20 mg PO BID Aspirin [Adult Low Dose Aspirin EC] 81 mg PO DAILY Levothyroxine Sodium [Synthroid] 75 mcg PO DAILY Metoprolol Tartrate [Lopressor] 50 mg PO BID #180 tab Furosemide [Lasix] 40 mg PO DAILY #30 tab Cholecalciferol [Vitamin D3 (125 Mcg = 5000 Iu)] 125 mcg PO DAILY Apixaban [Eliquis] 2.5 mg PO BID Discharge Medication List Atorvastatin [Lipitor] 20 mg PO HS tab 06/18/14 [Rx] Aspirin [Adult Low Dose Aspirin EC] 81 mg PO DAILY 10/07/20 [History] Famotidine 20 mg PO BID 10/07/20 [History] Levothyroxine Sodium [Synthroid] 75 mcg PO DAILY 09/05/22 [History] Metoprolol Tartrate [Lopressor] 50 mg PO BID #180 tab 12/30/22 [Rx] Furosemide [Lasix] 40 mg PO DAILY #30 tab 01/03/23 [Rx] Albuterol Inhaler [Ventolin Hfa Inhaler] 2 puff INHALATION RT-QID 01/09/24 [History] Apixaban [Eliquis] 2.5 mg PO BID 01/09/24 [History] Cholecalciferol [Vitamin D3 (125 Mcg = 5000 Iu)] 125 mcg PO DAILY 01/09/24 [History] Fluticasone/Vilanterol [Breo Ellipta 200-25 Mcg Inhaler] 1 puff INHALATION RT- DAILY 01/09/24 [History] Temazepam [Restoril] 15 mg PO HS 04/10/24 [History] Acetaminophen Oral Susp [Tylenol] 650 mg PO Q6HR PRN ml 04/13/24 [Rx] Ipratropium-Albuterol Nebulize [Duoneb 0.5 mg-3 mg/3 ml Soln] 3 ml INHALATION RT-Q4H PRN each 04/13/24 [Rx] Ipratropium-Albuterol Nebulize [Duoneb 0.5 mg-3 mg/3 ml Soln] 3 ml INHALATION RT-QID each 04/13/24 [Rx] Follow up Appointment(s)/Referral(s): Elizabeth Veliz MD [Primary Care Provider] - 1-2 days Discharge Disposition: HOME WITH HOSPICE
--- NOTE | 2024-04-15 14:49 | P.PN ---
Subjective Progress Note Date: 04/13/24 Principal diagnosis: Reason for follow-up is pneumonia Patient is a 74-year-old female with a past medical history significant for CVA TIA hypertension hyperlipidemia did have a lung mass highly suspicious for bronchogenic carcinoma however did not have any biopsy done patient now presenting to the hospital for evaluation of increasing shortness of breath and cough patient did have CT with a left upper lobe mass surrounding airspace disease concerning for possible postoperative pneumonia. On today's evaluation that is 04/13/2024, patient has been afebrile, patient is feeling of more shortness of breath today and is requiring 6 L nasal cannula oxygen patient denies any chest pain or worsening cough no vomiting or diarrhea has been reported. Patient did have a white count of 18.8, creatinine 0.74 blood and sputum culture have been negative so far Objective - Vital Signs Vital signs: Vital Signs Temp 97.4 F L 04/13/24 08:00 Pulse 116 H 04/13/24 12:00 Resp 18 04/13/24 08:00 BP 133/85 04/13/24 12:00 Pulse Ox 95 04/13/24 12:00 FiO2 Intake & Output 04/12/24 04/13/24 04/13/24 18:59 06:59 18:59 Output Total 1350 Balance -1350 Weight 75 kg Output: Urine 1350 Other: Voiding Method External Catheter External Catheter External Catheter - Exam GENERAL DESCRIPTION: An elderly female lying in bed in no distress RESPIRATORY SYSTEM: Unlabored breathing , coarse breath sounds HEART: S1 S2 regular rate and rhythm , ABDOMEN: Soft , no tenderness EXTREMITIES: No edema feet - Labs CBC & Chem 7: 04/13/24 08:03 04/13/24 08:03 Labs: Abnormal Lab Results - Last 24 Hours (Table) 04/13/24 04/13/24 04/13/24 Range/Units 08:03 08:03 11:34 WBC 18.9 H (3.8-10.6) k/uL Neutrophils # 17.9 H (1.3-7.7) k/uL Lymphocytes # 0.2 L (1.0-4.8) k/uL Sodium 132 L (137-145) mmol/L Potassium 3.3 L (3.5-5.1) mmol/L Chloride 94 L (98-107) mmol/L Carbon Dioxide 34 H (22-30) mmol/L BUN 18 H (7-17) mg/dL Glucose 146 H (74-99) mg/dL POC Glucose (mg/dL) 154 H (70-110) mg/dL Microbiology - Last 24 Hours (Table) 04/10/24 08:17 Blood Culture - Preliminary Blood Assessment and Plan (1) Lung mass Status: Acute Priority: High Code(s): R91.8 - OTHER NONSPECIFIC ABNORMAL FINDING OF LUNG FIELD SNOMED Code(s): 965156509 (2) Pneumonia Status: Acute Code(s): J18.9 - PNEUMONIA, UNSPECIFIED ORGANISM SNOMED Code(s): 824167133 Plan: 1patient presented to hospital with increasing shortness of breath the patient also have a cough in this patient with known lung mass concerning for possible bronchogenic carcinoma with a chest x-ray not showing airspace disease surrounding the right upper lobe mass with a question of possible postobstructive pneumonia 2-patient with multiple antibiotic ALLERGIES that would limit the number of antibiotic safe to use 3-blood and sputum cultures has been negative, urine for the urine antigen has been negative, family is planning towards hospice which may be appropriate antibiotics can be safely discontinued discussed with [facility] for admitting team Dictation was produced using [employer] dictation software. please excuse any grammatical, word or spelling errors. Time with Patient: Less than 30
== END 2024-04-13 20:58 | disposition hospice, home (50) | DRG 871 ==
LOC: EC 06:53 → 3SCARD 10:23
PROVIDERS: ADMIT Internal Medicine; ATTEND Internal Medicine
DX: A41.9 Sepsis, unspecified organism (principal); J18.9 Pneumonia, unspecified organism; J96.01 Acute respiratory failure with hypoxia; J44.1 Chronic obstructive pulmonary disease with (acute) exacerbation; J44.0 Chronic obstructive pulmonary disease with (acute) lower respiratory infection; I50.32 Chronic diastolic (congestive) heart failure; J98.11 Atelectasis; C34.12 Malignant neoplasm of upper lobe, left bronchus or lung; C34.11 Malignant neoplasm of upper lobe, right bronchus or lung; I11.0 Hypertensive heart disease with heart failure; E78.5 Hyperlipidemia, unspecified; E05.90 Thyrotoxicosis, unspecified without thyrotoxic crisis or storm; K21.9 Gastro-esophageal reflux disease without esophagitis; M19.90 Unspecified osteoarthritis, unspecified site; F17.200 Nicotine dependence, unspecified, uncomplicated; Z66 Do not resuscitate; R13.10 Dysphagia, unspecified; I95.9 Hypotension, unspecified; I48.0 Paroxysmal atrial fibrillation; I34.0 Nonrheumatic mitral (valve) insufficiency; I73.9 Peripheral vascular disease, unspecified; I27.20 Pulmonary hypertension, unspecified; Z86.73 Personal history of transient ischemic attack (TIA), and cerebral infarction without residual deficits; Z79.890 Hormone replacement therapy; Z79.82 Long term (current) use of aspirin; Z79.899 Other long term (current) drug therapy; Z88.1 Allergy status to other antibiotic agents; Z88.5 Allergy status to narcotic agent; Z88.0 Allergy status to penicillin; Z51.5 Encounter for palliative care; Z79.01 Long term (current) use of anticoagulants
CPT/HCPCS: 36415; 71045; 71046; 80048; 80053; 82533; 83605; 83735; 85025; 85610; 85730; 87040; 87070; 87205; 87449; 87636; 93005; 93306; 94640; 94760; 96365; 96366; 96367; 96368; 96375; 96376; 99291